=== PATIENT | male | born 1945 | race African-American/Black ===

== ENCOUNTER 2017-08-10 00:05 | Inpatient (IN) | payer MEDICARE, OTHER ==
[2017-08-10] MEDS: IPRATROPIUM (NEB) 0.5 MG/2.5 ML AMP INH (00:40)
[2017-08-10] MEDS: ALBUTEROL 0.5% (NEB) 2.5 MG/0.5 ML AMP INH (00:40)
[2017-08-10] MEDS: METHYLPREDNISOLONE 125 MG INJ IV (00:42)
[2017-08-10 01:26] LABS: WHITE BLOOD COUNT 5.2 10^3/ul (4.8-10.8)
[2017-08-10 01:26] LABS: HEMATOCRIT 34.4 % (42.0-52.0); HEMOGLOBIN 11.4 g/dl (14.0-18.0); MEAN CORPUSCULAR HEMOGLOBIN 30.5 pg (29.0-33.0); MEAN CORPUSCULAR HGB CONC 33.1 g/dl (32.0-37.0); MEAN PLATELET VOLUME 11.4 fl (7.4-10.4); POSITIVE DIFF @See below; RED BLOOD COUNT 3.74 10^6/ul (4.70-6.10); RED CELL DISTRIBUTION WIDTH 19.8 % (11.5-14.5)
[2017-08-10 01:30] LABS: ADD MAN DIFF? YES; PLATELET COUNT 104 10^3/UL (140-415)
[2017-08-10 01:42] LABS: ALANINE AMINOTRANSFERASE 42 IU/L (13-69); ALBUMIN 3.8 g/dl (3.3-4.9); ALBUMIN/GLOBULIN RATIO 1.08; ALKALINE PHOSPHATASE 88 IU/L (42-121); ANION GAP 18 (8-16); ASPARTATE AMINO TRANSFERASE 59 IU/L (15-46); BILIRUBIN,INDIRECT 1.2 mg/dl (0-1.1); BILIRUBIN,TOTAL 1.2 mg/dl (0.2-1.3); BLOOD UREA NITROGEN 17 mg/dl (7-20); CALCIUM 8.7 mg/dl (8.4-10.2); CARBON DIOXIDE 19 mmol/L (21-31); CHLORIDE 108 mmol/L (97-110); CREATININE 0.85 mg/dl (0.61-1.24); GLUCOSE 68 mg/dl (70-220); POTASSIUM 4.1 mmol/L (3.5-5.1); SODIUM 141 mmol/L (135-144); TOTAL PROTEIN 7.3 g/dl (6.1-8.1)
[2017-08-10 01:50] LABS: INR 1.06; PROTIME 13.9 Sec (11.9-14.9); PT RATIO 1.1
[2017-08-10 01:51] LABS: PARTIAL THROMBOPLASTIN TIME 28.7 Sec (25.0-35.0)
[2017-08-10 01:56] LABS: B-TYPE NATRIURETIC PEPTIDE 4400 PG/ML (0-125); TROPONIN-I 0.075 ng/ml (0.00-0.12)
[2017-08-10 02:29] LABS: ANISOCYTOSIS 1+ (0-0); EOSINOPHILS % (M) 3 % (0-7); LYMPHOCYTES #M 1.4 10^3/ul (0.8-2.9); LYMPHOCYTES % (M) 28 % (15-51); MONOCYTE #M 0.2 10^3/ul (0.3-0.9); MONOCYTES % (M) 5 % (0-11); OVALOCYTES 1+ (0-0); PLATELET ESTIMATE NORMAL; POIKILOCYTOSIS 1+ (0-0); POLYCHROMASIA 1+ (0-0); SEGMENTED NEUTROPHILS (M) % 64 % (39-77); SMUDGE%M 4 % (0-0)
[2017-08-10] MEDS ORDERED: DILTIAZEM 25 MG INJ (03:54)
[2017-08-10] MEDS: DILTIAZEM 25 MG INJ IV (04:07)
[2017-08-10] MEDS: SOD CHLORIDE 0.9% 500 ML IV (04:08)
[2017-08-10] MEDS ORDERED: NITROGLYCERIN (SL) 0.4 MG TAB SL (04:30)
[2017-08-10] MEDS ORDERED: NACL 0.9% 3 ML SYG IV (04:30)
[2017-08-10] MEDS: morphine 2 MG INJ IV ×3 (04:53→19:46)
[2017-08-10] MEDS: ONDANSETRON 4 MG INJ IV ×4 (04:53→21:17)
[2017-08-10 06:06] LABS: CREATINE KINASE 98 IU/L (23-200)
[2017-08-10 06:19] LABS: CK INDEX 3.3; TROPONIN-I 0.077 ng/ml (0.00-0.12)
[2017-08-10 06:22] LABS: CK-MB 3.27 ng/ml (0.0-2.4)
[2017-08-10] MEDS: ASPIRIN (EC) 325 MG TAB PO (08:41)
[2017-08-10] MEDS: FAMOTIDINE 20 MG TAB PO ×2 (08:45→21:17)
[2017-08-10] MEDS: HYDROCODONE/APAP (5/325) TAB PO ×2 (08:45→17:05)
[2017-08-10] MEDS ORDERED: ASPIRIN 81 MG TAB PO (09:00)
[2017-08-10] MEDS: ENOXAPARIN 40 MG/0.4 ML SYG SC (09:06)
[2017-08-10] MEDS: LEVALBUTEROL (NEB) 0.63 MG/3 ML AMP HHN (12:29)
[2017-08-10] MEDS: ACETAMINOPHEN 325 MG TAB PO (13:20)
[2017-08-10] MEDS: LORAZEPAM 0.5 MG TAB PO ×2 (13:21→19:46)
[2017-08-10] MEDS: FUROSEMIDE 20 MG INJ IV (15:37)
[2017-08-10 15:45] LABS: CREATINE KINASE 126 IU/L (23-200)
[2017-08-10 15:56] LABS: CK INDEX 3.3; TROPONIN-I 0.058 ng/ml (0.00-0.12)
[2017-08-10 16:06] LABS: CK-MB 4.18 ng/ml (0.0-2.4)
[2017-08-10] MEDS: ATORVASTATIN 40 MG TAB PO (21:17)
[2017-08-10] MEDS: GABAPENTIN 300 MG CAP PO (22:44)
[2017-08-11] MEDS: ASPIRIN (EC) 325 MG TAB PO (09:03)
[2017-08-11] MEDS: FAMOTIDINE 20 MG TAB PO ×2 (09:03→21:39)
[2017-08-11] MEDS: FUROSEMIDE 20 MG INJ IV (09:03)
[2017-08-11] MEDS: GABAPENTIN 300 MG CAP PO ×3 (09:03→21:40)
[2017-08-11] MEDS: ENOXAPARIN 40 MG/0.4 ML SYG SC (09:05)
[2017-08-11 16:53] LABS: ADD MAN DIFF? NO
[2017-08-11 16:55] LABS: WHITE BLOOD COUNT 12.5 10^3/ul (4.8-10.8)
[2017-08-11 16:55] LABS: ABNORMAL IP MESSAGE 1; HEMATOCRIT 33.6 % (42.0-52.0); MEAN CORPUSCULAR HGB CONC 32.7 g/dl (32.0-37.0); MEAN CORPUSCULAR VOLUME 94.6 fl (82.0-101.0); PLATELET COUNT 53 10^3/UL (140-415); POSITIVE DIFF @See below; RED BLOOD COUNT 3.55 10^6/ul (4.70-6.10); RED CELL DISTRIBUTION WIDTH 19.9 % (11.5-14.5)
[2017-08-11 17:12] LABS: ALBUMIN 3.8 g/dl (3.3-4.9); ALBUMIN/GLOBULIN RATIO 1.11; ALKALINE PHOSPHATASE 97 IU/L (42-121); ANION GAP 23 (8-16); BILIRUBIN,INDIRECT 2.4 mg/dl (0-1.1); BILIRUBIN,TOTAL 5.5 mg/dl (0.2-1.3); BLOOD UREA NITROGEN 43 mg/dl (7-20); CALCIUM 8.7 mg/dl (8.4-10.2); CARBON DIOXIDE 15 mmol/L (21-31); CHLORIDE 99 mmol/L (97-110); CREATININE 2.17 mg/dl (0.61-1.24); GLUCOSE 135 mg/dl (70-220); MAGNESIUM 1.6 mg/dl (1.7-2.5); POTASSIUM 5.4 mmol/L (3.5-5.1); SODIUM 132 mmol/L (135-144); TOTAL PROTEIN 7.2 g/dl (6.1-8.1)
[2017-08-11 17:20] LABS: ALANINE AMINOTRANSFERASE 1447 IU/L (13-69)
[2017-08-11 17:34] LABS: ASPARTATE AMINO TRANSFERASE 5141 IU/L (15-46)
[2017-08-11] MEDS: morphine 2 MG INJ IV (17:54)
[2017-08-11 18:09] LABS: ANISOCYTOSIS 1+ (0-0); BAND NEUTROPHILS #M 0.7 10^3/ul (0.0-0.6); BAND NEUTROPHILS % (M) 6 % (0-4); LYMPHOCYTES #M 0.2 10^3/ul (0.8-2.9); LYMPHOCYTES % (M) 2 % (15-51); METAMYELOCYTES #M 0.1 10^3/ul (0.0-0.0); METAMYELOCYTES %M 1 % (0-0); MONOCYTE #M 0.7 10^3/ul (0.3-0.9); MONOCYTES % (M) 6 % (0-11); MYELOCYTES #M 0.1 10^3/ul (0.0-0.0); MYELOCYTES % (M) 1 % (0-0); PLATELET ESTIMATE DECREASED; POIKILOCYTOSIS 1+ (0-0); SEG NEUT #M 10.6 10^3/ul (1.7-7.5); SEGMENTED NEUTROPHILS (M) % 84 % (39-77)
[2017-08-11 19:13] LABS: ADD MAN DIFF? NO
[2017-08-11 19:17] LABS: ABNORMAL IP MESSAGE 1; BASOPHILS % 0.1 % (0.0-2.0); HEMATOCRIT 33.5 % (42.0-52.0); HEMOGLOBIN 10.8 g/dl (14.0-18.0); LYMPHOCYTES # 0.3 10^3/ul (0.8-2.9); LYMPHOCYTES % 2.8 % (15.0-51.0); MEAN CORPUSCULAR HEMOGLOBIN 30.5 pg (29.0-33.0); MEAN CORPUSCULAR HGB CONC 32.2 g/dl (32.0-37.0); MEAN CORPUSCULAR VOLUME 94.6 fl (82.0-101.0); MEAN PLATELET VOLUME 13.8 fl (7.4-10.4); MONOCYTE # 0.4 10^3/ul (0.3-0.9); MONOCYTES % 3.6 % (0.0-11.0); NEUTROPHIL # 10.4 10^3/ul (1.6-7.5); NEUTROPHILS % 92.8 % (39.0-77.0); POSITIVE DIFF @See below; RED BLOOD COUNT 3.54 10^6/ul (4.70-6.10); RED CELL DISTRIBUTION WIDTH 20.1 % (11.5-14.5)
[2017-08-11 19:17] LABS: WHITE BLOOD COUNT 11.2 10^3/ul (4.8-10.8)
[2017-08-11 19:38] LABS: ANION GAP 20 (8-16); BLOOD UREA NITROGEN 46 mg/dl (7-20); CALCIUM 8.3 mg/dl (8.4-10.2); CARBON DIOXIDE 16 mmol/L (21-31); CHLORIDE 99 mmol/L (97-110); CREATININE 2.18 mg/dl (0.61-1.24); GLUCOSE 133 mg/dl (70-220); POTASSIUM 5.2 mmol/L (3.5-5.1); SODIUM 130 mmol/L (135-144)
[2017-08-11 19:47] LABS: PLATELET COUNT 49 10^3/UL (140-415)
[2017-08-11] MEDS: SOD CHLORIDE 0.9% 1,000 ML IV (21:39)
[2017-08-11] MEDS: MAGNESIUM SULFATE 2 GM/50 ML 50 ML IVPB (21:39)
[2017-08-11] MEDS: ATORVASTATIN 40 MG TAB PO (21:40)
[2017-08-12] MEDS: morphine 2 MG INJ IV ×3 (00:26→21:05)
[2017-08-12] MEDS: ONDANSETRON 4 MG INJ IV (06:10)
[2017-08-12] MEDS: LORAZEPAM 0.5 MG TAB PO (06:11)
[2017-08-12] MEDS: ASPIRIN (EC) 325 MG TAB PO (08:43)
[2017-08-12] MEDS: FAMOTIDINE 20 MG TAB PO ×2 (08:43→21:04)
[2017-08-12] MEDS: GABAPENTIN 300 MG CAP PO ×3 (08:43→21:05)
[2017-08-12] MEDS: FUROSEMIDE 20 MG INJ IV (08:48)
[2017-08-12] MEDS: ENOXAPARIN 40 MG/0.4 ML SYG SC (08:49)
[2017-08-12] MEDS: SOD CHLORIDE 0.9% 1,000 ML IV (09:50)
[2017-08-12 16:48] LABS: ANION GAP 19 (8-16); BLOOD UREA NITROGEN 61 mg/dl (7-20); CALCIUM 7.3 mg/dl (8.4-10.2); CARBON DIOXIDE 18 mmol/L (21-31); CHLORIDE 96 mmol/L (97-110); CREATININE 2.43 mg/dl (0.61-1.24); GLUCOSE 110 mg/dl (70-220); POTASSIUM 5.9 mmol/L (3.5-5.1); SODIUM 127 mmol/L (135-144)
[2017-08-12 16:52] LABS: B-TYPE NATRIURETIC PEPTIDE 5340 PG/ML (0-125)
[2017-08-12 16:54] LABS: ADD UMIC YES; UR ASCORBIC ACID NEGATIVE (NEGATIVE); UR BACTERIA FEW /HPF (NONE SEEN); UR BILIRUBIN (Dip) NEGATIVE (NEGATIVE); UR BLOOD (Dip) 2+ mg/dL (NEGATIVE); UR CLARITY SLIGHTLY CLOUDY (CLEAR); UR COLOR AMBER (YELLOW); UR GLUCOSE (Dip) NEGATIVE (NEGATIVE); UR KETONES (Dip) NEGATIVE (NEGATIVE); UR LEUKOCYTE ESTERASE (Dip) NEGATIVE Leu/ul (NEGATIVE); UR MUCUS FEW /HPF (NONE SEEN); UR NITRITE (Dip) NEGATIVE (NEGATIVE); UR RBC 9 /HPF (0-5); UR SPECIFIC GRAVITY (Dip) 1.015 (1.003-1.030); UR TOTAL PROTEIN (Dip) 2+ mg/dl (NEGATIVE); UR UROBILINOGEN (Dip) 2+ mg/dL (NEGATIVE); UR WBC 2 /HPF (0-5)
[2017-08-12] MEDS: FUROSEMIDE 40 MG INJ IV (16:54)
[2017-08-12 17:17] LABS: CREATININE,URINE RANDOM 109.65 mg/dl (20-370)
[2017-08-12 17:17] LABS: SODIUM,URINE RANDOM 20 mmol/L (30-90)
[2017-08-12 18:42] LABS: Allen Test ACCEPTAB; Arterial Base Excess -7.6 mmol/L (-3.0-3); Arterial Blood Gas Oxygen Sat 90.6 mmHG (95.0-98.0); Arterial COHb 0.4 % (0.0-3.0); Arterial Fraction of Oxyhgb 90.1 % (93.0-99.0); Arterial HCO3 16.1 mmol/L (22.0-26.0); Arterial MetHb 0.1 % (0.0-1.5); Arterial Total Hemglobin 12.5 g/dl (12.0-18.0); Arterial pCO2 27.9 mmhg (35-45); MODE ROOM AIR; Site Right Radial
[2017-08-12 19:07] LABS: ALBUMIN 3.5 g/dl (3.3-4.9); ALKALINE PHOSPHATASE 129 IU/L (42-121); BILIRUBIN,INDIRECT 1.5 mg/dl (0-1.1); BILIRUBIN,TOTAL 2.8 mg/dl (0.2-1.3); TOTAL PROTEIN 6.8 g/dl (6.1-8.1)
[2017-08-12] MEDS: NA POLYST SULFON 15 GM/60 ML BTL PO (19:16)
[2017-08-12 19:17] LABS: ALANINE AMINOTRANSFERASE 1198 IU/L (13-69)
[2017-08-12] MEDS: ATORVASTATIN 40 MG TAB PO (21:05)
[2017-08-12 23:07] LABS: ANION GAP 20 (8-16); BLOOD UREA NITROGEN 64 mg/dl (7-20); CALCIUM 7.7 mg/dl (8.4-10.2); CARBON DIOXIDE 17 mmol/L (21-31); CHLORIDE 97 mmol/L (97-110); CREATININE 2.48 mg/dl (0.61-1.24); GLUCOSE 108 mg/dl (70-220); POTASSIUM 5.2 mmol/L (3.5-5.1); SODIUM 129 mmol/L (135-144)
[2017-08-13] MEDS: LORAZEPAM 0.5 MG TAB PO (03:45)
[2017-08-13 05:49] LABS: ABNORMAL IP MESSAGE 1; HEMATOCRIT 33.5 % (42.0-52.0); HEMOGLOBIN 11.1 g/dl (14.0-18.0); MEAN CORPUSCULAR HEMOGLOBIN 31.1 pg (29.0-33.0); MEAN CORPUSCULAR HGB CONC 33.1 g/dl (32.0-37.0); MEAN CORPUSCULAR VOLUME 93.8 fl (82.0-101.0); NUCLEATED RED BLOOD CELLS% 0.3 /100WBC (0.0-0.0); POSITIVE DIFF @See below; RED BLOOD COUNT 3.57 10^6/ul (4.70-6.10); RED CELL DISTRIBUTION WIDTH 19.8 % (11.5-14.5)
[2017-08-13 05:49] LABS: WHITE BLOOD COUNT 7.9 10^3/ul (4.8-10.8)
[2017-08-13 06:13] LABS: ADD MAN DIFF? YES; PLATELET COUNT 37 10^3/UL (140-415)
[2017-08-13 06:14] LABS: PATH REVIEW? YES
[2017-08-13 06:26] LABS: ALBUMIN 3.7 g/dl (3.3-4.9); ALKALINE PHOSPHATASE 138 IU/L (42-121); BILIRUBIN,INDIRECT 1.4 mg/dl (0-1.1); BILIRUBIN,TOTAL 2.7 mg/dl (0.2-1.3); TOTAL PROTEIN 7.1 g/dl (6.1-8.1)
[2017-08-13 06:28] LABS: ANION GAP 22 (8-16); BLOOD UREA NITROGEN 66 mg/dl (7-20); CALCIUM 7.6 mg/dl (8.4-10.2); CARBON DIOXIDE 19 mmol/L (21-31); CHLORIDE 98 mmol/L (97-110); CREATININE 2.24 mg/dl (0.61-1.24); GLUCOSE 127 mg/dl (70-220); POTASSIUM 4.9 mmol/L (3.5-5.1); SODIUM 134 mmol/L (135-144)
[2017-08-13 06:35] LABS: ALANINE AMINOTRANSFERASE 1072 IU/L (13-69)
[2017-08-13 06:50] LABS: MAGNESIUM 2.2 mg/dl (1.7-2.5)
[2017-08-13 06:50] LABS: PHOSPHORUS 3.8 mg/dl (2.5-4.9)
[2017-08-13 07:26] LABS: ASPARTATE AMINO TRANSFERASE 2169 IU/L (15-46)
[2017-08-13] MEDS: FAMOTIDINE 20 MG TAB PO ×2 (08:36→21:19)
[2017-08-13] MEDS: FUROSEMIDE 20 MG INJ IV (08:36)
[2017-08-13] MEDS: ASPIRIN (EC) 325 MG TAB PO (08:36)
[2017-08-13] MEDS: GABAPENTIN 300 MG CAP PO ×3 (08:36→21:19)
[2017-08-13] MEDS: ENOXAPARIN 40 MG/0.4 ML SYG SC (08:43)
[2017-08-13 09:25] LABS: LYMPHOCYTES # 0.2 10^3/ul (0.8-2.9); LYMPHOCYTES % 2.7 % (15.0-51.0); MONOCYTE # 0.6 10^3/ul (0.3-0.9); MONOCYTES % 7.9 % (0.0-11.0); NEUTROPHILS % 88.9 % (39.0-77.0)
[2017-08-13 09:56] LABS: ANISOCYTOSIS 1+ (0-0); BAND NEUTROPHILS #M 0.5 10^3/ul (0.0-0.6); BAND NEUTROPHILS % (M) 7 % (0-4); BURR CELLS 3+ (0-0); GIANT THROMBO% (M) 2 % (0-0); LYMPHOCYTES #M 0.1 10^3/ul (0.8-2.9); LYMPHOCYTES % (M) 2 % (15-51); MONOCYTE #M 0.4 10^3/ul (0.3-0.9); MONOCYTES % (M) 6 % (0-11); PLATELET ESTIMATE SIG DECREASED; POIKILOCYTOSIS 3+ (0-0); POLYCHROMASIA 3+ (0-0); PROMYELOCYTES % (M) 1 % (0-0); SEG NEUT #M 6.7 10^3/ul (1.7-7.5); SEGMENTED NEUTROPHILS (M) % 84 % (39-77)
[2017-08-13] MEDS: LEVALBUTEROL (NEB) 0.63 MG/3 ML AMP HHN (12:10)
[2017-08-13] MEDS: IPRATROPIUM (NEB) 0.5 MG/2.5 ML AMP NEB (12:11)
[2017-08-13] MEDS: ATORVASTATIN 40 MG TAB PO (21:19)
[2017-08-13] MEDS: morphine 2 MG INJ IV (23:07)
[2017-08-14] MEDS: morphine 2 MG INJ IV ×4 (04:18→19:50)
[2017-08-14 06:07] LABS: ADD MAN DIFF? NO
[2017-08-14 06:47] LABS: WHITE BLOOD COUNT 5.3 10^3/ul (4.8-10.8)
[2017-08-14 06:47] LABS: ABNORMAL IP MESSAGE 1; EOSINOPHILS % 0.2 % (0.0-7.0); HEMATOCRIT 28.9 % (42.0-52.0); HEMOGLOBIN 10.3 g/dl (14.0-18.0); LYMPHOCYTES # 0.4 10^3/ul (0.8-2.9); LYMPHOCYTES % 6.8 % (15.0-51.0); MEAN CORPUSCULAR HEMOGLOBIN 31.4 pg (29.0-33.0); MEAN CORPUSCULAR HGB CONC 35.6 g/dl (32.0-37.0); MEAN CORPUSCULAR VOLUME 88.1 fl (82.0-101.0); MONOCYTE # 0.6 10^3/ul (0.3-0.9); MONOCYTES % 11.5 % (0.0-11.0); NEUTROPHIL # 4.3 10^3/ul (1.6-7.5); NEUTROPHILS % 81.1 % (39.0-77.0); NUCLEATED RED BLOOD CELLS% 0.4 /100WBC (0.0-0.0); POSITIVE DIFF @See below; RED BLOOD COUNT 3.28 10^6/ul (4.70-6.10); RED CELL DISTRIBUTION WIDTH 19.3 % (11.5-14.5)
[2017-08-14 07:03] LABS: PLATELET COUNT 45 10^3/UL (140-415)
[2017-08-14 07:49] LABS: ANION GAP 15 (8-16); BLOOD UREA NITROGEN 46 mg/dl (7-20); CALCIUM 7.2 mg/dl (8.4-10.2); CARBON DIOXIDE 23 mmol/L (21-31); CHLORIDE 99 mmol/L (97-110); CREATININE 1.56 mg/dl (0.61-1.24); GLUCOSE 99 mg/dl (70-220); MAGNESIUM 1.8 mg/dl (1.7-2.5); PHOSPHORUS 2.2 mg/dl (2.5-4.9); POTASSIUM 3.6 mmol/L (3.5-5.1); SODIUM 133 mmol/L (135-144)
[2017-08-14] MEDS: FAMOTIDINE 20 MG TAB PO ×2 (09:09→19:53)
[2017-08-14] MEDS: ASPIRIN (EC) 325 MG TAB PO (09:09)
[2017-08-14] MEDS: GABAPENTIN 300 MG CAP PO ×3 (09:09→19:53)
[2017-08-14] MEDS: ENOXAPARIN 40 MG/0.4 ML SYG SC (09:10)
[2017-08-14] MEDS: FUROSEMIDE 20 MG INJ IV (09:10)
[2017-08-14] MEDS: DIGOXIN 0.125 MG TAB PO (14:25)
[2017-08-14] MEDS: IVABRADINE HCL 5 MG TABLET PO (17:46)
[2017-08-14] MEDS: ONDANSETRON 4 MG INJ IV (18:34)
[2017-08-14] MEDS: ATORVASTATIN 40 MG TAB PO (19:53)
[2017-08-14] MEDS: LORAZEPAM 0.5 MG TAB PO (21:12)
[2017-08-15 07:00] LABS: ANION GAP 12 (8-16); BLOOD UREA NITROGEN 30 mg/dl (7-20); CALCIUM 7.2 mg/dl (8.4-10.2); CARBON DIOXIDE 25 mmol/L (21-31); CHLORIDE 100 mmol/L (97-110); CREATININE 0.98 mg/dl (0.61-1.24); GLUCOSE 88 mg/dl (70-220); MAGNESIUM 1.8 mg/dl (1.7-2.5); PHOSPHORUS 2.1 mg/dl (2.5-4.9); POTASSIUM 3.9 mmol/L (3.5-5.1); SODIUM 133 mmol/L (135-144)
[2017-08-15] MEDS: IVABRADINE HCL 5 MG TABLET PO ×2 (08:33→17:59)
[2017-08-15] MEDS: GABAPENTIN 300 MG CAP PO ×3 (08:33→21:17)
[2017-08-15] MEDS: FAMOTIDINE 20 MG TAB PO ×2 (08:33→21:17)
[2017-08-15] MEDS: ASPIRIN (EC) 325 MG TAB PO (08:34)
[2017-08-15] MEDS: FUROSEMIDE 20 MG INJ IV (08:34)
[2017-08-15] MEDS: ENOXAPARIN 40 MG/0.4 ML SYG SC (08:35)
[2017-08-15] MEDS: morphine 2 MG INJ IV ×3 (08:45→21:18)
[2017-08-15] MEDS: LOSARTAN 25 MG TAB PO (12:30)
[2017-08-15] MEDS: DIGOXIN 0.125 MG TAB PO (12:33)
[2017-08-15] MEDS: LACTULOSE 30ML CUP PO (16:55)
[2017-08-15] MEDS: ATORVASTATIN 40 MG TAB PO (21:17)
[2017-08-15] MEDS: DOCUSATE SODIUM 100 MG CAP PO (21:17)
[2017-08-15] MEDS: LORAZEPAM 0.5 MG TAB PO (22:43)
[2017-08-16] MEDS: morphine 2 MG INJ IV ×2 (02:36→06:32)
[2017-08-16 06:29] LABS: ALANINE AMINOTRANSFERASE 635 IU/L (13-69); ALBUMIN/GLOBULIN RATIO 1.03; ALKALINE PHOSPHATASE 270 IU/L (42-121); ANION GAP 11 (8-16); BILIRUBIN,INDIRECT 1.3 mg/dl (0-1.1); BILIRUBIN,TOTAL 3.7 mg/dl (0.2-1.3); BLOOD UREA NITROGEN 20 mg/dl (7-20); CALCIUM 7.4 mg/dl (8.4-10.2); CARBON DIOXIDE 25 mmol/L (21-31); CHLORIDE 100 mmol/L (97-110); CREATININE 0.92 mg/dl (0.61-1.24); GLUCOSE 116 mg/dl (70-220); MAGNESIUM 1.7 mg/dl (1.7-2.5); POTASSIUM 3.2 mmol/L (3.5-5.1); SODIUM 133 mmol/L (135-144); TOTAL PROTEIN 5.9 g/dl (6.1-8.1)
[2017-08-16 06:45] LABS: ASPARTATE AMINO TRANSFERASE 1211 IU/L (15-46)
[2017-08-16] MEDS: IVABRADINE HCL 5 MG TABLET PO ×2 (08:00→18:03)
[2017-08-16] MEDS: POTASSIUM CHLORIDE (SR) 20 MEQ TAB PO (09:14)
[2017-08-16] MEDS: ENOXAPARIN 40 MG/0.4 ML SYG SC (09:15)
[2017-08-16] MEDS: DOCUSATE SODIUM 100 MG CAP PO ×2 (09:15→20:42)
[2017-08-16] MEDS: FAMOTIDINE 20 MG TAB PO ×2 (09:15→20:42)
[2017-08-16] MEDS: LOSARTAN 25 MG TAB PO (09:16)
[2017-08-16] MEDS: GABAPENTIN 300 MG CAP PO ×3 (09:16→20:42)
[2017-08-16] MEDS: FUROSEMIDE 20 MG INJ IV ×2 (09:17→18:03)
[2017-08-16] MEDS: ASPIRIN (EC) 325 MG TAB PO (09:19)
[2017-08-16] MEDS: DIGOXIN 0.125 MG TAB PO (13:13)
[2017-08-16] MEDS: SPIRONOLACTONE 25 MG TAB PO (15:47)
[2017-08-16] MEDS: ACETAMINOPHEN 325 MG TAB PO (20:47)
[2017-08-17] MEDS: morphine 2 MG INJ IV ×4 (00:47→23:48)
[2017-08-17] MEDS: FUROSEMIDE 20 MG INJ IV ×2 (05:53→17:52)
[2017-08-17] MEDS: LOSARTAN 25 MG TAB PO (09:00)
[2017-08-17] MEDS: ENOXAPARIN 40 MG/0.4 ML SYG SC ×2 (09:00→09:11)
[2017-08-17] MEDS: ASPIRIN (EC) 325 MG TAB PO (09:07)
[2017-08-17] MEDS: DOCUSATE SODIUM 100 MG CAP PO ×2 (09:07→20:22)
[2017-08-17] MEDS: GABAPENTIN 300 MG CAP PO ×3 (09:07→20:22)
[2017-08-17] MEDS: IVABRADINE HCL 5 MG TABLET PO ×2 (09:08→17:57)
[2017-08-17] MEDS: SPIRONOLACTONE 25 MG TAB PO (09:08)
[2017-08-17] MEDS: FAMOTIDINE 20 MG TAB PO ×2 (09:08→21:26)
[2017-08-17] MEDS: ACETAMINOPHEN 325 MG TAB PO (09:09)
[2017-08-17 10:50] LABS: ADD MAN DIFF? NO
[2017-08-17 11:39] LABS: WHITE BLOOD COUNT 6.1 10^3/ul (4.8-10.8)
[2017-08-17 11:39] LABS: ABNORMAL IP MESSAGE 1; BASOPHILS % 0.2 % (0.0-2.0); EOSINOPHILS # 0.1 10^3/ul (0.0-0.5); EOSINOPHILS % 1.3 % (0.0-7.0); HEMATOCRIT 37.4 % (42.0-52.0); HEMOGLOBIN 13.3 g/dl (14.0-18.0); LYMPHOCYTES # 0.4 10^3/ul (0.8-2.9); LYMPHOCYTES % 6.2 % (15.0-51.0); MEAN CORPUSCULAR HEMOGLOBIN 30.6 pg (29.0-33.0); MEAN CORPUSCULAR HGB CONC 35.6 g/dl (32.0-37.0); MONOCYTE # 1.2 10^3/ul (0.3-0.9); MONOCYTES % 19.7 % (0.0-11.0); NEUTROPHIL # 4.4 10^3/ul (1.6-7.5); NEUTROPHILS % 72.1 % (39.0-77.0); PLATELET COUNT 84 10^3/UL (140-415); POSITIVE DIFF @See below; RED BLOOD COUNT 4.35 10^6/ul (4.70-6.10); RED CELL DISTRIBUTION WIDTH 20.4 % (11.5-14.5)
[2017-08-17 11:55] LABS: PHOSPHORUS 2.6 mg/dl (2.5-4.9)
[2017-08-17 11:55] LABS: MAGNESIUM 1.4 mg/dl (1.7-2.5)
[2017-08-17 12:07] LABS: ALANINE AMINOTRANSFERASE 612 IU/L (13-69); ALBUMIN 2.6 g/dl (3.3-4.9); ALBUMIN/GLOBULIN RATIO 0.81; ALKALINE PHOSPHATASE 201 IU/L (42-121); ANION GAP 12 (8-16); BILIRUBIN,INDIRECT 1.6 mg/dl (0-1.1); BILIRUBIN,TOTAL 5.9 mg/dl (0.2-1.3); BLOOD UREA NITROGEN 17 mg/dl (7-20); CALCIUM 7.6 mg/dl (8.4-10.2); CARBON DIOXIDE 23 mmol/L (21-31); CHLORIDE 99 mmol/L (97-110); GLUCOSE 112 mg/dl (70-220); POTASSIUM 3.2 mmol/L (3.5-5.1); SODIUM 131 mmol/L (135-144); TOTAL PROTEIN 5.8 g/dl (6.1-8.1)
[2017-08-17 12:10] LABS: B-TYPE NATRIURETIC PEPTIDE 1450 PG/ML (0-125)
[2017-08-17 12:28] LABS: ASPARTATE AMINO TRANSFERASE 1137 IU/L (15-46)
[2017-08-17] MEDS: CALCIUM CARBONATE 500 MG CHEW TAB PO ×2 (12:57→22:29)
[2017-08-17] MEDS: POTASSIUM CHLORIDE (SR) 20 MEQ TAB PO (12:57)
[2017-08-17] MEDS: MAGNESIUM OXIDE 400 MG TAB PO (12:57)
[2017-08-17] MEDS: DIGOXIN 0.125 MG TAB PO (12:58)
[2017-08-17 16:01] LABS: CREATININE, RANDOM URINE 121 mg/dL (20-370); MICROALBUMIN 38.4 mg/dL; MICROALBUMIN/CREATININE RATIO 317 (<30)
[2017-08-17] MEDS: PANTOPRAZOLE (EC) 40 MG TAB PO (20:20)
[2017-08-17] MEDS: LACTOBACILLUS RHAMNOSUS CAP PO (20:22)
[2017-08-17] MEDS: MAGNESIUM SULFATE 3 GM in DEXTROSE 5% 100 ML IVPB (22:48)
[2017-08-18] MEDS: FUROSEMIDE 20 MG INJ IV ×2 (06:23→17:40)
[2017-08-18] MEDS: morphine 2 MG INJ IV (06:24)
[2017-08-18] MEDS: PANTOPRAZOLE (EC) 40 MG TAB PO (06:26)
[2017-08-18] MEDS: LACTOBACILLUS RHAMNOSUS CAP PO ×2 (09:12→22:07)
[2017-08-18] MEDS: GABAPENTIN 300 MG CAP PO ×3 (09:12→22:08)
[2017-08-18] MEDS: DOCUSATE SODIUM 100 MG CAP PO ×2 (09:12→22:08)
[2017-08-18] MEDS: ASPIRIN (EC) 325 MG TAB PO (09:12)
[2017-08-18] MEDS: IVABRADINE HCL 5 MG TABLET PO ×2 (09:12→17:39)
[2017-08-18] MEDS: FAMOTIDINE 20 MG TAB PO ×2 (09:13→22:08)
[2017-08-18] MEDS: LOSARTAN 25 MG TAB PO (09:14)
[2017-08-18] MEDS: SPIRONOLACTONE 25 MG TAB PO (09:23)
[2017-08-18] MEDS: ENOXAPARIN 40 MG/0.4 ML SYG SC (09:24)
[2017-08-18] MEDS: metroNIDAZOLE 500 MG/NS (PMX) 100 ML IVPB ×2 (13:08→17:39)
[2017-08-18] MEDS: DIGOXIN 0.125 MG TAB PO (13:21)
[2017-08-18] MEDS: SOD CHLORIDE 0.9% 500 ML IV ×2 (18:22→22:14)
[2017-08-18] MEDS ORDERED: SOD CHLORIDE 0.9% 500 ML IV (18:30)
[2017-08-18] MEDS: KETOROLAC 30 MG INJ IV (22:01)
[2017-08-19] MEDS: metroNIDAZOLE 500 MG/NS (PMX) 100 ML IVPB ×4 (00:37→18:12)
[2017-08-19] MEDS: FUROSEMIDE 20 MG INJ IV (06:00)
[2017-08-19] MEDS: KETOROLAC 15 MG INJ IV (06:17)
[2017-08-19 06:23] LABS: ADD MAN DIFF? NO
[2017-08-19 06:27] LABS: ABNORMAL IP MESSAGE 1; BASOPHILS % 0.2 % (0.0-2.0); EOSINOPHILS # 0.1 10^3/ul (0.0-0.5); EOSINOPHILS % 1.9 % (0.0-7.0); HEMATOCRIT 34.3 % (42.0-52.0); HEMOGLOBIN 12.1 g/dl (14.0-18.0); LYMPHOCYTES # 0.8 10^3/ul (0.8-2.9); LYMPHOCYTES % 12.8 % (15.0-51.0); MEAN CORPUSCULAR HEMOGLOBIN 30.4 pg (29.0-33.0); MEAN CORPUSCULAR HGB CONC 35.3 g/dl (32.0-37.0); MEAN CORPUSCULAR VOLUME 86.2 fl (82.0-101.0); MEAN PLATELET VOLUME 12.9 fl (7.4-10.4); MONOCYTE # 1.2 10^3/ul (0.3-0.9); MONOCYTES % 18.6 % (0.0-11.0); NEUTROPHIL # 4.2 10^3/ul (1.6-7.5); NEUTROPHILS % 66.3 % (39.0-77.0); PLATELET COUNT 92 10^3/UL (140-415); POSITIVE DIFF @See below; RED BLOOD COUNT 3.98 10^6/ul (4.70-6.10); RED CELL DISTRIBUTION WIDTH 20.7 % (11.5-14.5)
[2017-08-19 06:27] LABS: WHITE BLOOD COUNT 6.3 10^3/ul (4.8-10.8)
[2017-08-19] MEDS: PANTOPRAZOLE (EC) 40 MG TAB PO (06:48)
[2017-08-19 06:55] LABS: ALANINE AMINOTRANSFERASE 360 IU/L (13-69); ALBUMIN 2.2 g/dl (3.3-4.9); ALBUMIN/GLOBULIN RATIO 0.78; ALKALINE PHOSPHATASE 148 IU/L (42-121); ANION GAP 13 (8-16); ASPARTATE AMINO TRANSFERASE 308 IU/L (15-46); BILIRUBIN,INDIRECT 1.1 mg/dl (0-1.1); BILIRUBIN,TOTAL 2.5 mg/dl (0.2-1.3); BLOOD UREA NITROGEN 21 mg/dl (7-20); CALCIUM 7.9 mg/dl (8.4-10.2); CARBON DIOXIDE 21 mmol/L (21-31); CHLORIDE 105 mmol/L (97-110); CREATININE 1.23 mg/dl (0.61-1.24); GLUCOSE 135 mg/dl (70-220); LIPASE 612 U/L (23-300); POTASSIUM 3.5 mmol/L (3.5-5.1); SODIUM 135 mmol/L (135-144)
[2017-08-19 07:12] LABS: DIGOXIN 0.6 ng/ml (1.0-2.0)
[2017-08-19 07:12] LABS: LACTIC ACID 1.6 mmol/L (0.5-2.0)
[2017-08-19 07:18] LABS: TROPONIN-I 0.055 ng/ml (0.00-0.12)
[2017-08-19 07:27] LABS: MAGNESIUM 1.7 mg/dl (1.7-2.5)
[2017-08-19 07:27] LABS: PHOSPHORUS 2.8 mg/dl (2.5-4.9)
[2017-08-19] MEDS: SOD CHLORIDE 0.9% 1,000 ML IV ×2 (07:39→22:22)
[2017-08-19] MEDS: SOD CHLORIDE 0.9% 500 ML IV (07:39)
[2017-08-19] MEDS: LOSARTAN 25 MG TAB PO (09:00)
[2017-08-19] MEDS: LACTOBACILLUS RHAMNOSUS CAP PO ×2 (09:00→21:00)
[2017-08-19] MEDS: CIPROFLOXACIN 400MG/D5W 200 ML IVPB ×2 (10:55→22:12)
[2017-08-19] MEDS: DOCUSATE SODIUM 100 MG CAP PO ×2 (10:56→21:00)
[2017-08-19] MEDS: GABAPENTIN 300 MG CAP PO ×3 (10:56→22:12)
[2017-08-19] MEDS: ASPIRIN (EC) 325 MG TAB PO (10:56)
[2017-08-19] MEDS: FAMOTIDINE 20 MG TAB PO ×2 (10:56→22:12)
[2017-08-19] MEDS: SPIRONOLACTONE 25 MG TAB PO (10:56)
[2017-08-19] MEDS: ENOXAPARIN 40 MG/0.4 ML SYG SC (11:02)
[2017-08-19] MEDS: DIGOXIN 0.125 MG TAB PO (12:56)
[2017-08-19] MEDS: IVABRADINE HCL 5 MG TABLET PO ×2 (12:56→18:12)
[2017-08-19 13:47] LABS: TROPONIN-I 0.031 ng/ml (0.00-0.12)
[2017-08-19] MEDS: morphine 2 MG INJ IV (22:19)
[2017-08-20] MEDS: metroNIDAZOLE 500 MG/NS (PMX) 100 ML IVPB ×4 (00:50→17:06)
[2017-08-20] MEDS: PANTOPRAZOLE (EC) 40 MG TAB PO (05:35)
[2017-08-20] MEDS: ASPIRIN (EC) 325 MG TAB PO (09:11)
[2017-08-20] MEDS: GABAPENTIN 300 MG CAP PO ×3 (09:11→21:14)
[2017-08-20] MEDS: LACTOBACILLUS RHAMNOSUS CAP PO ×2 (09:11→21:14)
[2017-08-20] MEDS: DOCUSATE SODIUM 100 MG CAP PO ×2 (09:11→21:14)
[2017-08-20] MEDS: LOSARTAN 25 MG TAB PO (09:12)
[2017-08-20] MEDS: FAMOTIDINE 20 MG TAB PO ×2 (09:12→21:14)
[2017-08-20] MEDS: SPIRONOLACTONE 25 MG TAB PO (09:12)
[2017-08-20] MEDS: IVABRADINE HCL 5 MG TABLET PO ×2 (09:13→17:09)
[2017-08-20] MEDS: ENOXAPARIN 40 MG/0.4 ML SYG SC (09:15)
[2017-08-20] MEDS: morphine 2 MG INJ IV (09:22)
[2017-08-20] MEDS: CIPROFLOXACIN 400MG/D5W 200 ML IVPB ×2 (10:36→21:14)
[2017-08-20] MEDS: DIGOXIN 0.125 MG TAB PO (13:37)
[2017-08-20 14:49] LABS: ADD MAN DIFF? NO
[2017-08-20 14:51] LABS: ABNORMAL IP MESSAGE 1; BASOPHILS % 0.2 % (0.0-2.0); EOSINOPHILS # 0.1 10^3/ul (0.0-0.5); EOSINOPHILS % 1.1 % (0.0-7.0); HEMATOCRIT 34.5 % (42.0-52.0); HEMOGLOBIN 11.7 g/dl (14.0-18.0); LYMPHOCYTES # 0.8 10^3/ul (0.8-2.9); LYMPHOCYTES % 12.9 % (15.0-51.0); MEAN CORPUSCULAR HEMOGLOBIN 30.4 pg (29.0-33.0); MEAN CORPUSCULAR HGB CONC 33.9 g/dl (32.0-37.0); MEAN CORPUSCULAR VOLUME 89.6 fl (82.0-101.0); MEAN PLATELET VOLUME 11.9 fl (7.4-10.4); MONOCYTE # 1.5 10^3/ul (0.3-0.9); MONOCYTES % 24.1 % (0.0-11.0); NEUTROPHIL # 3.9 10^3/ul (1.6-7.5); NEUTROPHILS % 61.5 % (39.0-77.0); PLATELET COUNT 90 10^3/UL (140-415); POSITIVE DIFF @See below; RED BLOOD COUNT 3.85 10^6/ul (4.70-6.10); RED CELL DISTRIBUTION WIDTH 21.5 % (11.5-14.5)
[2017-08-20 14:51] LABS: WHITE BLOOD COUNT 6.4 10^3/ul (4.8-10.8)
[2017-08-20 15:09] LABS: ANION GAP 13 (8-16); BLOOD UREA NITROGEN 12 mg/dl (7-20); CALCIUM 7.8 mg/dl (8.4-10.2); CARBON DIOXIDE 18 mmol/L (21-31); CHLORIDE 106 mmol/L (97-110); CREATININE 0.98 mg/dl (0.61-1.24); GLUCOSE 87 mg/dl (70-220); MAGNESIUM 1.5 mg/dl (1.7-2.5); PHOSPHORUS 2.9 mg/dl (2.5-4.9); POTASSIUM 3.7 mmol/L (3.5-5.1); SODIUM 133 mmol/L (135-144)
[2017-08-20] MEDS: MAGNESIUM SULFATE 3 GM in DEXTROSE 5% 100 ML IVPB (17:51)
[2017-08-21] MEDS: metroNIDAZOLE 500 MG/NS (PMX) 100 ML IVPB ×4 (00:10→18:58)
[2017-08-21] MEDS: morphine 2 MG INJ IV (00:11)
[2017-08-21] MEDS: PANTOPRAZOLE (EC) 40 MG TAB PO (05:13)
[2017-08-21] MEDS: SOD CHLORIDE 0.9% 1,000 ML IV (06:09)
[2017-08-21 08:20] LABS: ADD MAN DIFF? NO
[2017-08-21 08:28] LABS: WHITE BLOOD COUNT 6.6 10^3/ul (4.8-10.8)
[2017-08-21 08:28] LABS: ABNORMAL IP MESSAGE 1; BASOPHILS % 0.5 % (0.0-2.0); EOSINOPHILS % 0.6 % (0.0-7.0); HEMATOCRIT 34.7 % (42.0-52.0); HEMOGLOBIN 12.3 g/dl (14.0-18.0); LYMPHOCYTES % 15.5 % (15.0-51.0); MEAN CORPUSCULAR HEMOGLOBIN 30.7 pg (29.0-33.0); MEAN CORPUSCULAR HGB CONC 35.4 g/dl (32.0-37.0); MEAN CORPUSCULAR VOLUME 86.5 fl (82.0-101.0); MEAN PLATELET VOLUME 13.1 fl (7.4-10.4); MONOCYTE # 1.3 10^3/ul (0.3-0.9); MONOCYTES % 19.7 % (0.0-11.0); NEUTROPHIL # 4.2 10^3/ul (1.6-7.5); NEUTROPHILS % 63.4 % (39.0-77.0); PLATELET COUNT 89 10^3/UL (140-415); POSITIVE DIFF @See below; RED BLOOD COUNT 4.01 10^6/ul (4.70-6.10); RED CELL DISTRIBUTION WIDTH 21.6 % (11.5-14.5)
[2017-08-21] MEDS: FAMOTIDINE 20 MG TAB PO ×2 (08:46→20:12)
[2017-08-21] MEDS: LACTOBACILLUS RHAMNOSUS CAP PO ×2 (08:46→20:10)
[2017-08-21] MEDS: GABAPENTIN 300 MG CAP PO ×3 (08:46→20:10)
[2017-08-21] MEDS: CIPROFLOXACIN 400MG/D5W 200 ML IVPB ×2 (08:46→20:09)
[2017-08-21] MEDS: IVABRADINE HCL 5 MG TABLET PO ×2 (08:46→18:57)
[2017-08-21] MEDS: DOCUSATE SODIUM 100 MG CAP PO ×2 (08:46→20:10)
[2017-08-21] MEDS: ASPIRIN (EC) 325 MG TAB PO (08:46)
[2017-08-21] MEDS: SPIRONOLACTONE 25 MG TAB PO (08:46)
[2017-08-21] MEDS: LOSARTAN 25 MG TAB PO (08:47)
[2017-08-21] MEDS: ENOXAPARIN 40 MG/0.4 ML SYG SC (08:51)
[2017-08-21 09:05] LABS: ANION GAP 14 (8-16); BLOOD UREA NITROGEN 12 mg/dl (7-20); CALCIUM 8.3 mg/dl (8.4-10.2); CARBON DIOXIDE 22 mmol/L (21-31); CHLORIDE 104 mmol/L (97-110); CREATININE 0.93 mg/dl (0.61-1.24); GLUCOSE 75 mg/dl (70-220); MAGNESIUM 1.7 mg/dl (1.7-2.5); PHOSPHORUS 3.7 mg/dl (2.5-4.9); POTASSIUM 4.8 mmol/L (3.5-5.1); SODIUM 135 mmol/L (135-144)
[2017-08-21] MEDS: DIGOXIN 0.125 MG TAB PO (12:41)
[2017-08-21] MEDS: HYDROCODONE/APAP (5/325) TAB PO (22:34)
[2017-08-22] MEDS: metroNIDAZOLE 500 MG/NS (PMX) 100 ML IVPB ×4 (00:56→17:28)
[2017-08-22] MEDS: PANTOPRAZOLE (EC) 40 MG TAB PO (05:04)
[2017-08-22] MEDS: IVABRADINE HCL 5 MG TABLET PO ×2 (08:51→17:27)
[2017-08-22] MEDS: LACTOBACILLUS RHAMNOSUS CAP PO ×2 (08:52→20:29)
[2017-08-22] MEDS: GABAPENTIN 300 MG CAP PO ×3 (08:52→20:29)
[2017-08-22] MEDS: ASPIRIN (EC) 325 MG TAB PO (08:52)
[2017-08-22] MEDS: FAMOTIDINE 20 MG TAB PO ×2 (08:53→20:29)
[2017-08-22] MEDS: DOCUSATE SODIUM 100 MG CAP PO ×2 (08:53→20:29)
[2017-08-22] MEDS: HYDROCODONE/APAP (5/325) TAB PO (09:00)
[2017-08-22] MEDS: LOSARTAN 25 MG TAB PO (09:00)
[2017-08-22] MEDS: ENOXAPARIN 40 MG/0.4 ML SYG SC (09:00)
[2017-08-22] MEDS: SPIRONOLACTONE 25 MG TAB PO (09:00)
[2017-08-22] MEDS: CIPROFLOXACIN 400MG/D5W 200 ML IVPB ×2 (09:01→21:00)
[2017-08-22] MEDS: SUCRALFATE 1 GM TAB PO ×4 (13:00→20:28)
[2017-08-22] MEDS: DIGOXIN 0.125 MG TAB PO (13:16)
[2017-08-23] MEDS: metroNIDAZOLE 500 MG/NS (PMX) 100 ML IVPB ×4 (05:18→20:52)
[2017-08-23] MEDS: PANTOPRAZOLE (EC) 40 MG TAB PO (05:19)
[2017-08-23] MEDS: FAMOTIDINE 20 MG TAB PO ×2 (08:47→20:53)
[2017-08-23] MEDS: GABAPENTIN 300 MG CAP PO ×3 (08:47→20:53)
[2017-08-23] MEDS: IVABRADINE HCL 5 MG TABLET PO ×2 (08:48→17:28)
[2017-08-23] MEDS: SUCRALFATE 1 GM TAB PO ×4 (08:48→20:53)
[2017-08-23] MEDS: ASPIRIN (EC) 325 MG TAB PO (08:49)
[2017-08-23] MEDS: DOCUSATE SODIUM 100 MG CAP PO ×2 (08:50→20:53)
[2017-08-23 08:57] LABS: ADD MAN DIFF? NO
[2017-08-23] MEDS: LACTOBACILLUS RHAMNOSUS CAP PO ×2 (08:58→20:53)
[2017-08-23] MEDS: CIPROFLOXACIN 400MG/D5W 200 ML IVPB ×2 (09:00→20:52)
[2017-08-23] MEDS: ENOXAPARIN 40 MG/0.4 ML SYG SC (09:00)
[2017-08-23 09:12] LABS: WHITE BLOOD COUNT 5.7 10^3/ul (4.8-10.8)
[2017-08-23 09:12] LABS: BASOPHILS % 0.4 % (0.0-2.0); EOSINOPHILS % 0.5 % (0.0-7.0); HEMATOCRIT 33.8 % (42.0-52.0); HEMOGLOBIN 11.5 g/dl (14.0-18.0); LYMPHOCYTES # 1.2 10^3/ul (0.8-2.9); LYMPHOCYTES % 21.2 % (15.0-51.0); MEAN CORPUSCULAR HEMOGLOBIN 29.9 pg (29.0-33.0); MEAN PLATELET VOLUME 11.3 fl (7.4-10.4); MONOCYTE # 1.2 10^3/ul (0.3-0.9); NEUTROPHIL # 3.2 10^3/ul (1.6-7.5); NEUTROPHILS % 56.7 % (39.0-77.0); PLATELET COUNT 150 10^3/UL (140-415); RED BLOOD COUNT 3.84 10^6/ul (4.70-6.10)
[2017-08-23 09:40] LABS: ALANINE AMINOTRANSFERASE 204 IU/L (13-69); ALBUMIN 2.8 g/dl (3.3-4.9); ALBUMIN/GLOBULIN RATIO 0.96; ALKALINE PHOSPHATASE 109 IU/L (42-121); ANION GAP 13 (8-16); ASPARTATE AMINO TRANSFERASE 75 IU/L (15-46); BILIRUBIN,INDIRECT 0.6 mg/dl (0-1.1); BILIRUBIN,TOTAL 0.6 mg/dl (0.2-1.3); BLOOD UREA NITROGEN 8 mg/dl (7-20); CALCIUM 8.3 mg/dl (8.4-10.2); CARBON DIOXIDE 23 mmol/L (21-31); CHLORIDE 106 mmol/L (97-110); CREATININE 0.88 mg/dl (0.61-1.24); GLUCOSE 79 mg/dl (70-220); MAGNESIUM 1.3 mg/dl (1.7-2.5); POTASSIUM 4.1 mmol/L (3.5-5.1); SODIUM 138 mmol/L (135-144); TOTAL PROTEIN 5.7 g/dl (6.1-8.1)
[2017-08-23] MEDS: MAGNESIUM SULFATE 4 GM/100 ML 100 ML IVPB (11:30)
[2017-08-23] MEDS: MAGNESIUM OXIDE 400 MG TAB PO (13:30)
[2017-08-23] MEDS: DIGOXIN 0.125 MG TAB PO (13:30)
[2017-08-23] MEDS: morphine 2 MG INJ IV (20:56)
[2017-08-23] MEDS: HYDROCODONE/APAP (5/325) TAB PO (23:40)
[2017-08-24] MEDS: metroNIDAZOLE 500 MG/NS (PMX) 100 ML IVPB ×3 (00:18→12:38)
[2017-08-24] MEDS: morphine 2 MG INJ IV ×3 (05:30→20:33)
[2017-08-24] MEDS: PANTOPRAZOLE (EC) 40 MG TAB PO (06:58)
[2017-08-24] MEDS: ASPIRIN (EC) 325 MG TAB PO (08:18)
[2017-08-24] MEDS: FAMOTIDINE 20 MG TAB PO ×2 (08:18→20:30)
[2017-08-24] MEDS: DOCUSATE SODIUM 100 MG CAP PO ×2 (08:18→20:30)
[2017-08-24] MEDS: SUCRALFATE 1 GM TAB PO ×4 (08:18→20:30)
[2017-08-24] MEDS: LACTOBACILLUS RHAMNOSUS CAP PO ×2 (08:18→20:30)
[2017-08-24] MEDS: IVABRADINE HCL 5 MG TABLET PO ×2 (08:18→17:28)
[2017-08-24] MEDS: GABAPENTIN 300 MG CAP PO ×3 (08:19→20:30)
[2017-08-24] MEDS: ENOXAPARIN 40 MG/0.4 ML SYG SC (08:22)
[2017-08-24] MEDS: CIPROFLOXACIN 400MG/D5W 200 ML IVPB (08:23)
[2017-08-24 10:52] LABS: ADD MAN DIFF? NO
[2017-08-24 10:57] LABS: WHITE BLOOD COUNT 7.4 10^3/ul (4.8-10.8)
[2017-08-24 10:57] LABS: BASOPHILS % 0.4 % (0.0-2.0); EOSINOPHILS % 0.5 % (0.0-7.0); HEMATOCRIT 31.6 % (42.0-52.0); HEMOGLOBIN 10.6 g/dl (14.0-18.0); LYMPHOCYTES # 1.3 10^3/ul (0.8-2.9); LYMPHOCYTES % 17.8 % (15.0-51.0); MEAN CORPUSCULAR HEMOGLOBIN 30.6 pg (29.0-33.0); MEAN CORPUSCULAR HGB CONC 33.5 g/dl (32.0-37.0); MEAN CORPUSCULAR VOLUME 91.3 fl (82.0-101.0); MEAN PLATELET VOLUME 11.8 fl (7.4-10.4); MONOCYTE # 1.3 10^3/ul (0.3-0.9); MONOCYTES % 17.4 % (0.0-11.0); NEUTROPHIL # 4.7 10^3/ul (1.6-7.5); NEUTROPHILS % 63.5 % (39.0-77.0); PLATELET COUNT 161 10^3/UL (140-415); RED BLOOD COUNT 3.46 10^6/ul (4.70-6.10); RED CELL DISTRIBUTION WIDTH 21.2 % (11.5-14.5)
[2017-08-24 11:30] LABS: ALANINE AMINOTRANSFERASE 173 IU/L (13-69); ALBUMIN 2.9 g/dl (3.3-4.9); ALBUMIN/GLOBULIN RATIO 0.93; ALKALINE PHOSPHATASE 87 IU/L (42-121); ANION GAP 15 (8-16); ASPARTATE AMINO TRANSFERASE 67 IU/L (15-46); BILIRUBIN,INDIRECT 0.5 mg/dl (0-1.1); BILIRUBIN,TOTAL 0.5 mg/dl (0.2-1.3); BLOOD UREA NITROGEN 12 mg/dl (7-20); CARBON DIOXIDE 26 mmol/L (21-31); CHLORIDE 102 mmol/L (97-110); CREATININE 0.86 mg/dl (0.61-1.24); GLUCOSE 156 mg/dl (70-220); MAGNESIUM 1.2 mg/dl (1.7-2.5); SODIUM 138 mmol/L (135-144)
[2017-08-24] MEDS: DIGOXIN 0.125 MG TAB PO (12:57)
[2017-08-24] MEDS: MAGNESIUM SULFATE 3 GM in DEXTROSE 5% 100 ML IVPB (14:00)
[2017-08-24] MEDS ORDERED: metroNIDAZOLE 500 MG TAB PO (17:00)
[2017-08-24] MEDS: MAGNESIUM OXIDE 400 MG TAB PO (17:28)
[2017-08-24] MEDS ORDERED: CIPROFLOXACIN 500 MG TAB PO (18:00)
[2017-08-25] MEDS: NITROGLYCERIN (SL) 0.4 MG TAB SL (01:04)
[2017-08-25] MEDS: PANTOPRAZOLE (EC) 40 MG TAB PO (05:31)
[2017-08-25] MEDS: morphine 2 MG INJ IV (05:32)
[2017-08-25 08:38] LABS: ADD MAN DIFF? NO
[2017-08-25] MEDS: LACTOBACILLUS RHAMNOSUS CAP PO (08:41)
[2017-08-25] MEDS: GABAPENTIN 300 MG CAP PO ×2 (08:41→12:46)
[2017-08-25] MEDS: IVABRADINE HCL 5 MG TABLET PO (08:41)
[2017-08-25] MEDS: ASPIRIN (EC) 325 MG TAB PO (08:41)
[2017-08-25] MEDS: FAMOTIDINE 20 MG TAB PO (08:41)
[2017-08-25] MEDS: SUCRALFATE 1 GM TAB PO ×2 (08:41→12:46)
[2017-08-25] MEDS: DOCUSATE SODIUM 100 MG CAP PO (08:41)
[2017-08-25 08:42] LABS: BASOPHILS % 0.5 % (0.0-2.0); EOSINOPHILS # 0.1 10^3/ul (0.0-0.5); EOSINOPHILS % 0.9 % (0.0-7.0); HEMATOCRIT 34.5 % (42.0-52.0); HEMOGLOBIN 11.4 g/dl (14.0-18.0); LYMPHOCYTES # 1.7 10^3/ul (0.8-2.9); LYMPHOCYTES % 25.8 % (15.0-51.0); MEAN CORPUSCULAR HEMOGLOBIN 29.8 pg (29.0-33.0); MEAN CORPUSCULAR VOLUME 90.1 fl (82.0-101.0); MEAN PLATELET VOLUME 11.4 fl (7.4-10.4); MONOCYTE # 1.1 10^3/ul (0.3-0.9); MONOCYTES % 17.4 % (0.0-11.0); NEUTROPHIL # 3.6 10^3/ul (1.6-7.5); NEUTROPHILS % 55.2 % (39.0-77.0); PLATELET COUNT 196 10^3/UL (140-415); RED BLOOD COUNT 3.83 10^6/ul (4.70-6.10); RED CELL DISTRIBUTION WIDTH 21.1 % (11.5-14.5)
[2017-08-25 08:42] LABS: WHITE BLOOD COUNT 6.5 10^3/ul (4.8-10.8)
[2017-08-25] MEDS: ENOXAPARIN 40 MG/0.4 ML SYG SC (08:44)
[2017-08-25] MEDS: FUROSEMIDE 20 MG TAB PO (08:50)
[2017-08-25 09:01] LABS: ALANINE AMINOTRANSFERASE 174 IU/L (13-69); ALBUMIN 3.5 g/dl (3.3-4.9); ALBUMIN/GLOBULIN RATIO 1.09; ALKALINE PHOSPHATASE 102 IU/L (42-121); ANION GAP 16 (8-16); ASPARTATE AMINO TRANSFERASE 64 IU/L (15-46); BILIRUBIN,INDIRECT 0.6 mg/dl (0-1.1); BILIRUBIN,TOTAL 0.6 mg/dl (0.2-1.3); BLOOD UREA NITROGEN 16 mg/dl (7-20); CALCIUM 8.6 mg/dl (8.4-10.2); CARBON DIOXIDE 25 mmol/L (21-31); CHLORIDE 103 mmol/L (97-110); CREATININE 0.93 mg/dl (0.61-1.24); GLUCOSE 85 mg/dl (70-220); MAGNESIUM 1.7 mg/dl (1.7-2.5); POTASSIUM 4.7 mmol/L (3.5-5.1); SODIUM 139 mmol/L (135-144); TOTAL PROTEIN 6.7 g/dl (6.1-8.1)
[2017-08-25] MEDS: DIGOXIN 0.125 MG TAB PO (12:54)
== END 2017-08-25 13:57 | disposition home health service (06) | DRG 308 ==
LOC: PP2 08-13 00:45 → MS4 08-19 08:13 → E/R 00:05 → MS4 04:59
PROC: 0T9B70Z Drainage of Bladder with Drainage Device, Via Natural or Artificial Opening (ICD-10-PCS; 2017-08-12)
PROC: 4B02XTZ Measurement of Cardiac Defibrillator, External Approach (ICD-10-PCS; principal; 2017-08-14)
DX: I48.91 Unspecified atrial fibrillation (principal); I50.43 Acute on chronic combined systolic (congestive) and diastolic (congestive) heart failure; N17.9 Acute kidney failure, unspecified; E87.2 Acidosis; I95.9 Hypotension, unspecified; I42.9 Cardiomyopathy, unspecified; I11.0 Hypertensive heart disease with heart failure; E87.1 Hypo-osmolality and hyponatremia; L97.821 Non-pressure chronic ulcer of other part of left lower leg limited to breakdown of skin; L97.811 Non-pressure chronic ulcer of other part of right lower leg limited to breakdown of skin; E87.5 Hyperkalemia; J44.9 Chronic obstructive pulmonary disease, unspecified; R53.81 Other malaise; Z91.14 Patient's other noncompliance with medication regimen; D64.9 Anemia, unspecified; E78.5 Hyperlipidemia, unspecified; K52.9 Noninfective gastroenteritis and colitis, unspecified; F17.210 Nicotine dependence, cigarettes, uncomplicated; R33.9 Retention of urine, unspecified; R26.2 Difficulty in walking, not elsewhere classified; Z95.810 Presence of automatic (implantable) cardiac defibrillator; Z99.81 Dependence on supplemental oxygen; Z79.82 Long term (current) use of aspirin
CPT/HCPCS: 36415; 36600; 71010; 74176; 76775; 80048; 80053; 80076; 80162; 81001; 81003; 82043; 82550; 82553; 82803; 83605; 83690; 83735; 83880; 84100; 84155; 84300; 84484; 85025; 85610; 85730; 93005; 93306; 94640; 94644; 94664; 96361; 96374; 96375; 97116; 97163; 97530; 99291-25; J1940

== ENCOUNTER 2017-09-02 01:57 | Emergency (ER) | payer MEDICARE, OTHER ==
[2017-09-02] MEDS: GABAPENTIN 300 MG CAP PO (03:04)
== END 2017-09-02 04:40 | disposition home or self-care (01) ==
LOC: E/R 01:57
DX: M79.605 Pain in left leg (principal); M79.604 Pain in right leg; I10 Essential (primary) hypertension; I25.10 Atherosclerotic heart disease of native coronary artery without angina pectoris; J44.9 Chronic obstructive pulmonary disease, unspecified; R40.2142 Coma scale, eyes open, spontaneous, at arrival to emergency department; R40.2252 Coma scale, best verbal response, oriented, at arrival to emergency department; R40.2362 Coma scale, best motor response, obeys commands, at arrival to emergency department; Z95.0 Presence of cardiac pacemaker; Z79.82 Long term (current) use of aspirin
CPT/HCPCS: 99283

== ENCOUNTER 2017-09-10 06:48 | Observation (INO) | payer MEDICARE, OTHER ==
[2017-09-10 08:09] LABS: ADD MAN DIFF? NO
[2017-09-10 08:12] LABS: BASOPHILS % 0.3 % (0.0-2.0); HEMATOCRIT 31.1 % (42.0-52.0); HEMOGLOBIN 10.2 g/dl (14.0-18.0); LYMPHOCYTES # 0.9 10^3/ul (0.8-2.9); LYMPHOCYTES % 14.5 % (15.0-51.0); MEAN CORPUSCULAR HEMOGLOBIN 31.4 pg (29.0-33.0); MEAN CORPUSCULAR HGB CONC 32.8 g/dl (32.0-37.0); MEAN CORPUSCULAR VOLUME 95.7 fl (82.0-101.0); MEAN PLATELET VOLUME 10.5 fl (7.4-10.4); MONOCYTE # 0.9 10^3/ul (0.3-0.9); MONOCYTES % 13.1 % (0.0-11.0); NEUTROPHIL # 4.7 10^3/ul (1.6-7.5); NEUTROPHILS % 71.8 % (39.0-77.0); PLATELET COUNT 164 10^3/UL (140-415); RED BLOOD COUNT 3.25 10^6/ul (4.70-6.10); RED CELL DISTRIBUTION WIDTH 20.2 % (11.5-14.5)
[2017-09-10 08:12] LABS: WHITE BLOOD COUNT 6.5 10^3/ul (4.8-10.8)
[2017-09-10] MEDS: CEFTRIAXONE 1 GM/50 ML (PMX) 50 ML IVPB (08:18)
[2017-09-10] MEDS: AZITHROMYCIN 500MG/NS (PMX) 250 ML IVPB ×2 (08:19→08:50)
[2017-09-10] MEDS: morphine 4 MG/ML VIAL IV (08:19)
[2017-09-10] MEDS: SOD CHLORIDE 0.9% 1,000 ML IV ×3 (08:20→19:04)
[2017-09-10 08:38] LABS: ALANINE AMINOTRANSFERASE 41 IU/L (13-69); ALBUMIN 3.5 g/dl (3.3-4.9); ALKALINE PHOSPHATASE 86 IU/L (42-121); ANION GAP 18 (8-16); ASPARTATE AMINO TRANSFERASE 34 IU/L (15-46); BILIRUBIN,INDIRECT 1.8 mg/dl (0-1.1); BILIRUBIN,TOTAL 1.8 mg/dl (0.2-1.3); BLOOD UREA NITROGEN 13 mg/dl (7-20); CALCIUM 8.2 mg/dl (8.4-10.2); CARBON DIOXIDE 21 mmol/L (21-31); CHLORIDE 106 mmol/L (97-110); CREATININE 0.81 mg/dl (0.61-1.24); GLUCOSE 94 mg/dl (70-220); LIPASE 93 U/L (23-300); POTASSIUM 3.7 mmol/L (3.5-5.1); SODIUM 141 mmol/L (135-144)
[2017-09-10 08:49] LABS: TROPONIN-I 0.036 ng/ml (0.00-0.12)
[2017-09-10] MEDS: IPRATROPIUM (NEB) 0.5 MG/2.5 ML AMP NEB (09:52)
[2017-09-10] MEDS: ALBUTEROL 0.083% (NEB) 2.5 MG/3 ML AMP NEB (09:53)
[2017-09-10] MEDS: SOD CHLORIDE 0.9% IV (10:08)
[2017-09-10 11:02] LABS: LACTIC ACID 4.8 mmol/L (0.5-2.0)
[2017-09-10] MEDS ORDERED: ACETAMINOPHEN 325 MG TAB PO (12:00)
[2017-09-10 12:39] LABS: MAGNESIUM 1.3 mg/dl (1.7-2.5)
[2017-09-10 13:22] LABS: LACTIC ACID 5.9 mmol/L (0.5-2.0)
[2017-09-10] MEDS ORDERED: DILTIAZEM 25 MG INJ IV (14:00)
[2017-09-10 15:34] LABS: LACTIC ACID 9.3 mmol/L (0.5-2.0)
[2017-09-10] MEDS: ONDANSETRON 4 MG INJ IV (15:39)
[2017-09-10] MEDS: ASPIRIN 81 MG TAB PO (15:39)
[2017-09-10] MEDS: HYDROCODONE/APAP (5/325) TAB PO (15:39)
[2017-09-10] MEDS: LEVOFLOXACIN 500MG/D5W (PMX) 100 ML IVPB (16:19)
[2017-09-10 17:53] LABS: LACTIC ACID 9.7 mmol/L (0.5-2.0)
[2017-09-10] MEDS: DILTIAZEM 25 MG INJ IV (17:59)
[2017-09-10] MEDS: MAGNESIUM SULFATE 3 GM in DEXTROSE 5% 100 ML IVPB (18:27)
[2017-09-10] MEDS: ATORVASTATIN 40 MG TAB PO (20:58)
[2017-09-10] MEDS: GABAPENTIN 300 MG CAP PO (20:59)
[2017-09-10] MEDS: FAMOTIDINE 20 MG TAB PO (21:01)
[2017-09-10] MEDS ORDERED: morphine 2 MG INJ (21:29)
[2017-09-10] MEDS: morphine 2 MG INJ IV (21:45)
[2017-09-11] MEDS: SOD CHLORIDE 0.9% 1,000 ML IV ×4 (02:30→13:15)
[2017-09-11] MEDS: morphine 2 MG INJ IV ×4 (04:10→22:04)
[2017-09-11 07:47] LABS: ADD MAN DIFF? NO
[2017-09-11 08:13] LABS: ANION GAP 19 (8-16); BASOPHILS % 0.5 % (0.0-2.0); BLOOD UREA NITROGEN 19 mg/dl (7-20); CALCIUM 8.6 mg/dl (8.4-10.2); CARBON DIOXIDE 19 mmol/L (21-31); CHLORIDE 105 mmol/L (97-110); CREATININE 1.05 mg/dl (0.61-1.24); EOSINOPHILS % 0.7 % (0.0-7.0); GLUCOSE 102 mg/dl (70-220); HEMATOCRIT 33.3 % (42.0-52.0); HEMOGLOBIN 10.9 g/dl (14.0-18.0); LYMPHOCYTES # 1.4 10^3/ul (0.8-2.9); LYMPHOCYTES % 23.9 % (15.0-51.0); MAGNESIUM 1.8 mg/dl (1.7-2.5); MEAN CORPUSCULAR HEMOGLOBIN 32.6 pg (29.0-33.0); MEAN CORPUSCULAR HGB CONC 32.7 g/dl (32.0-37.0); MEAN CORPUSCULAR VOLUME 99.7 fl (82.0-101.0); MEAN PLATELET VOLUME 11.6 fl (7.4-10.4); MONOCYTE # 1.1 10^3/ul (0.3-0.9); MONOCYTES % 18.7 % (0.0-11.0); NEUTROPHIL # 3.3 10^3/ul (1.6-7.5); NEUTROPHILS % 55.9 % (39.0-77.0); PLATELET COUNT 161 10^3/UL (140-415); POTASSIUM 4.6 mmol/L (3.5-5.1); RED BLOOD COUNT 3.34 10^6/ul (4.70-6.10); RED CELL DISTRIBUTION WIDTH 20.9 % (11.5-14.5); SODIUM 138 mmol/L (135-144)
[2017-09-11 08:13] LABS: WHITE BLOOD COUNT 5.9 10^3/ul (4.8-10.8)
[2017-09-11] MEDS ORDERED: FUROSEMIDE 20 MG TAB PO (09:00)
[2017-09-11] MEDS: FAMOTIDINE 20 MG TAB PO ×2 (09:03→20:11)
[2017-09-11] MEDS: GABAPENTIN 300 MG CAP PO ×2 (09:03→20:12)
[2017-09-11] MEDS: ASPIRIN 81 MG TAB PO (09:03)
[2017-09-11] MEDS: ONDANSETRON 4 MG INJ IV (12:39)
[2017-09-11] MEDS: MAGNESIUM HYDROXIDE 30ML CUP PO (12:41)
[2017-09-11] MEDS: DOCUSATE SODIUM 100 MG CAP PO ×2 (12:41→20:13)
[2017-09-11] MEDS: LEVOFLOXACIN 500MG/D5W (PMX) 100 ML IVPB (13:16)
[2017-09-11 14:37] LABS: LACTIC ACID 3.3 mmol/L (0.5-2.0)
[2017-09-11] MEDS ORDERED: ALBUTEROL/IPRATROPIUM (NEB) 3 ML AMP HHN (15:30)
[2017-09-11] MEDS: SOD CHLORIDE 0.45% 1,000 ML IV (16:16)
[2017-09-11] MEDS: ENOXAPARIN 40 MG/0.4 ML SYG SC (16:26)
[2017-09-11] MEDS: ATORVASTATIN 40 MG TAB PO (20:18)
[2017-09-11] MEDS: HYDROCODONE/APAP (5/325) TAB PO (20:48)
[2017-09-12] MEDS: morphine 2 MG INJ IV ×2 (05:15→12:28)
[2017-09-12] MEDS: FAMOTIDINE 20 MG TAB PO (08:53)
[2017-09-12] MEDS: GABAPENTIN 300 MG CAP PO (08:54)
[2017-09-12] MEDS: ASPIRIN 81 MG TAB PO (08:54)
[2017-09-12] MEDS: DOCUSATE SODIUM 100 MG CAP PO (08:56)
[2017-09-12] MEDS: ENOXAPARIN 40 MG/0.4 ML SYG SC (09:01)
[2017-09-12 10:34] LABS: ADD MAN DIFF? NO
[2017-09-12 10:37] LABS: WHITE BLOOD COUNT 5.2 10^3/ul (4.8-10.8)
[2017-09-12 10:37] LABS: BASOPHILS % 0.2 % (0.0-2.0); EOSINOPHILS % 0.4 % (0.0-7.0); HEMATOCRIT 31.4 % (42.0-52.0); HEMOGLOBIN 10.3 g/dl (14.0-18.0); LYMPHOCYTES # 0.8 10^3/ul (0.8-2.9); LYMPHOCYTES % 14.4 % (15.0-51.0); MEAN CORPUSCULAR HEMOGLOBIN 31.9 pg (29.0-33.0); MEAN CORPUSCULAR HGB CONC 32.8 g/dl (32.0-37.0); MEAN CORPUSCULAR VOLUME 97.2 fl (82.0-101.0); MEAN PLATELET VOLUME 10.9 fl (7.4-10.4); MONOCYTE # 0.6 10^3/ul (0.3-0.9); MONOCYTES % 10.7 % (0.0-11.0); NEUTROPHIL # 3.9 10^3/ul (1.6-7.5); NEUTROPHILS % 73.9 % (39.0-77.0); PLATELET COUNT 141 10^3/UL (140-415); RED BLOOD COUNT 3.23 10^6/ul (4.70-6.10); RED CELL DISTRIBUTION WIDTH 20.2 % (11.5-14.5)
[2017-09-12 11:19] LABS: ANION GAP 14 (8-16); BLOOD UREA NITROGEN 23 mg/dl (7-20); CALCIUM 8.2 mg/dl (8.4-10.2); CARBON DIOXIDE 19 mmol/L (21-31); CHLORIDE 103 mmol/L (97-110); CREATININE 1.08 mg/dl (0.61-1.24); GLUCOSE 109 mg/dl (70-220); SODIUM 132 mmol/L (135-144)
[2017-09-12 11:28] LABS: LACTIC ACID 2.5 mmol/L (0.5-2.0)
[2017-09-12] MEDS: LEVOFLOXACIN 500MG/D5W (PMX) 100 ML IVPB (14:04)
== END 2017-09-12 17:00 | disposition home or self-care (01) ==
LOC: E/R 06:48 → MS4 11:52
DX: A41.9 Sepsis, unspecified organism (principal); J44.1 Chronic obstructive pulmonary disease with (acute) exacerbation; I11.0 Hypertensive heart disease with heart failure; I50.9 Heart failure, unspecified; I25.5 Ischemic cardiomyopathy; E78.5 Hyperlipidemia, unspecified; G62.9 Polyneuropathy, unspecified; I48.0 Paroxysmal atrial fibrillation; L97.929 Non-pressure chronic ulcer of unspecified part of left lower leg with unspecified severity; L97.919 Non-pressure chronic ulcer of unspecified part of right lower leg with unspecified severity; L29.9 Pruritus, unspecified; Z79.01 Long term (current) use of anticoagulants; Z99.81 Dependence on supplemental oxygen; Z79.82 Long term (current) use of aspirin
CPT/HCPCS: 36415; 71045; 80048; 80053; 83605; 83690; 83735; 84484; 85025; 87040; 87070; 87400; 93005; 94664; 96361; 96365; 96367; 96375; 99217; 99291-25; G0378

== ENCOUNTER 2017-09-16 05:55 | Emergency (ER) | payer MEDICARE, OTHER ==
[2017-09-16 07:35] LABS: ADD MAN DIFF? NO
[2017-09-16 07:45] LABS: BASOPHILS % 0.4 % (0.0-2.0); EOSINOPHILS % 0.7 % (0.0-7.0); HEMATOCRIT 30.8 % (42.0-52.0); HEMOGLOBIN 10.2 g/dl (14.0-18.0); LYMPHOCYTES # 1.1 10^3/ul (0.8-2.9); LYMPHOCYTES % 19.7 % (15.0-51.0); MEAN CORPUSCULAR HEMOGLOBIN 32.2 pg (29.0-33.0); MEAN CORPUSCULAR HGB CONC 33.1 g/dl (32.0-37.0); MEAN CORPUSCULAR VOLUME 97.2 fl (82.0-101.0); MONOCYTE # 0.9 10^3/ul (0.3-0.9); MONOCYTES % 16.8 % (0.0-11.0); NEUTROPHIL # 3.3 10^3/ul (1.6-7.5); NEUTROPHILS % 62.2 % (39.0-77.0); PLATELET COUNT 121 10^3/UL (140-415); RED BLOOD COUNT 3.17 10^6/ul (4.70-6.10); RED CELL DISTRIBUTION WIDTH 21.4 % (11.5-14.5)
[2017-09-16 07:45] LABS: WHITE BLOOD COUNT 5.4 10^3/ul (4.8-10.8)
[2017-09-16 08:01] LABS: ANION GAP 14 (8-16); BLOOD UREA NITROGEN 11 mg/dl (7-20); CALCIUM 8.3 mg/dl (8.4-10.2); CARBON DIOXIDE 24 mmol/L (21-31); CHLORIDE 107 mmol/L (97-110); CREATININE 0.72 mg/dl (0.61-1.24); GLUCOSE 91 mg/dl (70-220); POTASSIUM 4.1 mmol/L (3.5-5.1); SODIUM 141 mmol/L (135-144)
[2017-09-16 08:02] LABS: INR 1.11; PROTIME 14.5 Sec (11.9-14.9); PT RATIO 1.1
[2017-09-16 08:11] LABS: B-TYPE NATRIURETIC PEPTIDE 3900 PG/ML (0-125); TROPONIN-I 0.025 ng/ml (0.00-0.12)
== END 2017-09-16 11:17 | disposition home or self-care (01) ==
LOC: E/R 05:55
DX: I50.9 Heart failure, unspecified (principal); G62.9 Polyneuropathy, unspecified; D69.6 Thrombocytopenia, unspecified; D64.9 Anemia, unspecified; I10 Essential (primary) hypertension; Z87.891 Personal history of nicotine dependence; Z96.649 Presence of unspecified artificial hip joint; Z95.0 Presence of cardiac pacemaker; Z79.82 Long term (current) use of aspirin
CPT/HCPCS: 36415; 71045; 80048; 83880; 84484; 85025; 85610; 93005; 99285-25

== ENCOUNTER 2017-09-18 04:43 | Inpatient (IN) | payer MEDICARE, OTHER ==
[2017-09-18] MEDS: IPRATROPIUM (NEB) 0.5 MG/2.5 ML AMP INH (06:33)
[2017-09-18] MEDS: ALBUTEROL 0.083% (NEB) 2.5 MG/3 ML AMP INH (06:33)
[2017-09-18 07:06] LABS: ADD MAN DIFF? NO
[2017-09-18 07:09] LABS: WHITE BLOOD COUNT 5.9 10^3/ul (4.8-10.8)
[2017-09-18 07:09] LABS: BASOPHILS % 0.5 % (0.0-2.0); EOSINOPHILS # 0.1 10^3/ul (0.0-0.5); EOSINOPHILS % 0.9 % (0.0-7.0); HEMATOCRIT 33.4 % (42.0-52.0); HEMOGLOBIN 11.1 g/dl (14.0-18.0); LYMPHOCYTES # 1.2 10^3/ul (0.8-2.9); LYMPHOCYTES % 19.6 % (15.0-51.0); MEAN CORPUSCULAR HEMOGLOBIN 32.4 pg (29.0-33.0); MEAN CORPUSCULAR HGB CONC 33.2 g/dl (32.0-37.0); MEAN CORPUSCULAR VOLUME 97.4 fl (82.0-101.0); MEAN PLATELET VOLUME 10.5 fl (7.4-10.4); MONOCYTE # 0.8 10^3/ul (0.3-0.9); MONOCYTES % 14.3 % (0.0-11.0); NEUTROPHIL # 3.8 10^3/ul (1.6-7.5); NEUTROPHILS % 64.4 % (39.0-77.0); PLATELET COUNT 144 10^3/UL (140-415); RED BLOOD COUNT 3.43 10^6/ul (4.70-6.10); RED CELL DISTRIBUTION WIDTH 21.2 % (11.5-14.5)
[2017-09-18 07:32] LABS: INR 1.12; PROTIME 14.6 Sec (11.9-14.9); PT RATIO 1.1
[2017-09-18 07:33] LABS: PARTIAL THROMBOPLASTIN TIME 33.6 Sec (25.0-35.0)
[2017-09-18 07:41] LABS: ALANINE AMINOTRANSFERASE 43 IU/L (13-69); ALBUMIN 3.6 g/dl (3.3-4.9); ALBUMIN/GLOBULIN RATIO 0.97; ALKALINE PHOSPHATASE 110 IU/L (42-121); ANION GAP 17 (8-16); ASPARTATE AMINO TRANSFERASE 74 IU/L (15-46); BILIRUBIN,INDIRECT 0.7 mg/dl (0-1.1); BILIRUBIN,TOTAL 0.7 mg/dl (0.2-1.3); BLOOD UREA NITROGEN 12 mg/dl (7-20); CALCIUM 8.3 mg/dl (8.4-10.2); CARBON DIOXIDE 24 mmol/L (21-31); CHLORIDE 106 mmol/L (97-110); CREATININE 0.79 mg/dl (0.61-1.24); GLUCOSE 95 mg/dl (70-220); POTASSIUM 4.1 mmol/L (3.5-5.1); SODIUM 143 mmol/L (135-144); TOTAL PROTEIN 7.3 g/dl (6.1-8.1)
[2017-09-18] MEDS: ONDANSETRON 4 MG INJ IV (07:42)
[2017-09-18] MEDS: morphine 4 MG/ML VIAL IV (07:42)
[2017-09-18 07:44] LABS: AADO2 Arterial 52.1 mmHg (7.0-24.0); Allen Test ACCEPTAB; Arterial Base Excess -1.6 mmol/L (-3.0-3); Arterial Blood Gas Oxygen Sat 93.2 mmHG (95.0-98.0); Arterial COHb 0.3 % (0.0-3.0); Arterial Fraction of Oxyhgb 92.5 % (93.0-99.0); Arterial HCO3 19.9 mmol/L (22.0-26.0); Arterial MetHb 0.4 % (0.0-1.5); Arterial pCO2 24.7 mmhg (35-45); MODE ROOM AIR; Site Right Radial
[2017-09-18 07:51] LABS: B-TYPE NATRIURETIC PEPTIDE 3840 PG/ML (0-125); TROPONIN-I 0.031 ng/ml (0.00-0.12)
[2017-09-18] MEDS ORDERED: NACL 0.9% 3 ML SYG IV (13:30)
[2017-09-18] MEDS ORDERED: ACETAMINOPHEN 325 MG TAB PO (13:30)
[2017-09-18] MEDS: FUROSEMIDE 40 MG INJ IV (14:16)
[2017-09-18] MEDS ORDERED: ONDANSETRON 4 MG INJ (17:07)
[2017-09-18] MEDS: HYDROCODONE/APAP (5/325) TAB PO (19:37)
[2017-09-18] MEDS: ATORVASTATIN 40 MG TAB PO (22:58)
[2017-09-19] MEDS: LORAZEPAM 2 MG INJ IV (00:22)
[2017-09-19 05:46] LABS: ADD MAN DIFF? NO
[2017-09-19 05:50] LABS: BASOPHILS % 0.8 % (0.0-2.0); EOSINOPHILS % 0.6 % (0.0-7.0); HEMATOCRIT 31.7 % (42.0-52.0); HEMOGLOBIN 10.6 g/dl (14.0-18.0); LYMPHOCYTES % 19.7 % (15.0-51.0); MEAN CORPUSCULAR HEMOGLOBIN 31.8 pg (29.0-33.0); MEAN CORPUSCULAR HGB CONC 33.4 g/dl (32.0-37.0); MEAN CORPUSCULAR VOLUME 95.2 fl (82.0-101.0); MONOCYTES % 18.2 % (0.0-11.0); NEUTROPHIL # 3.2 10^3/ul (1.6-7.5); NEUTROPHILS % 60.5 % (39.0-77.0); PLATELET COUNT 136 10^3/UL (140-415); RED BLOOD COUNT 3.33 10^6/ul (4.70-6.10); RED CELL DISTRIBUTION WIDTH 20.6 % (11.5-14.5)
[2017-09-19 05:50] LABS: WHITE BLOOD COUNT 5.3 10^3/ul (4.8-10.8)
[2017-09-19 06:28] LABS: ANION GAP 15 (8-16); BLOOD UREA NITROGEN 17 mg/dl (7-20); CALCIUM 8.4 mg/dl (8.4-10.2); CARBON DIOXIDE 22 mmol/L (21-31); CHLORIDE 104 mmol/L (97-110); CREATININE 0.93 mg/dl (0.61-1.24); GLUCOSE 84 mg/dl (70-220); MAGNESIUM 1.4 mg/dl (1.7-2.5); POTASSIUM 4.2 mmol/L (3.5-5.1); SODIUM 137 mmol/L (135-144)
[2017-09-19] MEDS: ASPIRIN 81 MG TAB PO (08:12)
[2017-09-19] MEDS: ENOXAPARIN 40 MG/0.4 ML SYG SC (08:13)
[2017-09-19] MEDS: HYDROCODONE/APAP (5/325) TAB PO ×2 (08:14→17:25)
[2017-09-19] MEDS: traMADol 50 MG TAB PO (12:05)
[2017-09-19] MEDS: MAGNESIUM SULFATE 4 GM/100 ML 100 ML IVPB (12:14)
[2017-09-19] MEDS: ONDANSETRON 4 MG INJ IV (15:07)
[2017-09-19] MEDS: MULTIVITAMINS THERAPEUTIC TAB PO (17:00)
[2017-09-19] MEDS: FOLIC ACID 1 MG TAB PO (18:19)
[2017-09-19] MEDS: FUROSEMIDE 40 MG TAB PO (18:19)
[2017-09-19] MEDS: THIAMINE 100 MG TAB PO (18:19)
[2017-09-19] MEDS: ATORVASTATIN 40 MG TAB PO (22:39)
[2017-09-20] MEDS: HYDROCODONE/APAP (5/325) TAB PO ×2 (08:34→20:41)
[2017-09-20] MEDS: THIAMINE 100 MG TAB PO (08:35)
[2017-09-20] MEDS: FOLIC ACID 1 MG TAB PO (08:35)
[2017-09-20] MEDS: FUROSEMIDE 40 MG TAB PO (08:36)
[2017-09-20 10:07] LABS: ANION GAP 16 (8-16); BLOOD UREA NITROGEN 22 mg/dl (7-20); CALCIUM 7.5 mg/dl (8.4-10.2); CARBON DIOXIDE 19 mmol/L (21-31); CHLORIDE 102 mmol/L (97-110); CREATININE 1.03 mg/dl (0.61-1.24); GLUCOSE 88 mg/dl (70-220); MAGNESIUM 1.8 mg/dl (1.7-2.5); PHOSPHORUS 3.8 mg/dl (2.5-4.9); SODIUM 132 mmol/L (135-144)
[2017-09-20] MEDS: MULTIVITAMINS THERAPEUTIC TAB PO (10:21)
[2017-09-20] MEDS: ASPIRIN 325 MG TAB PO (10:21)
[2017-09-20] MEDS: ENOXAPARIN 40 MG/0.4 ML SYG SC (10:24)
[2017-09-20] MEDS: ATORVASTATIN 40 MG TAB PO (20:48)
[2017-09-20] MEDS: morphine 2 MG INJ IV (21:25)
[2017-09-20] MEDS: ONDANSETRON 4 MG INJ IV (21:25)
[2017-09-21] MEDS: ONDANSETRON 4 MG INJ IV (01:33)
[2017-09-21] MEDS: traMADol 50 MG TAB PO ×2 (03:21→14:18)
[2017-09-21] MEDS: ONDANSETRON (ODT) 4 MG TAB ODT (03:22)
[2017-09-21 05:44] LABS: ANION GAP 17 (8-16); BLOOD UREA NITROGEN 22 mg/dl (7-20); CALCIUM 8.1 mg/dl (8.4-10.2); CARBON DIOXIDE 23 mmol/L (21-31); CHLORIDE 99 mmol/L (97-110); GLUCOSE 79 mg/dl (70-220); MAGNESIUM 1.5 mg/dl (1.7-2.5); POTASSIUM 3.9 mmol/L (3.5-5.1); SODIUM 135 mmol/L (135-144)
[2017-09-21] MEDS: ASPIRIN 325 MG TAB PO (08:59)
[2017-09-21] MEDS: FUROSEMIDE 40 MG TAB PO (09:00)
[2017-09-21] MEDS: THIAMINE 100 MG TAB PO (09:00)
[2017-09-21] MEDS: MULTIVITAMINS THERAPEUTIC TAB PO (09:00)
[2017-09-21] MEDS: FOLIC ACID 1 MG TAB PO (09:00)
[2017-09-21] MEDS: ENOXAPARIN 40 MG/0.4 ML SYG SC (09:10)
[2017-09-21] MEDS: MAGNESIUM OXIDE 400 MG TAB PO (14:06)
[2017-09-21] MEDS: MAGNESIUM SULFATE 2 GM/50 ML 50 ML IVPB (14:07)
== END 2017-09-21 16:28 | disposition home health service (06) | DRG 293 ==
LOC: E/R 04:43 → MS3 08:54
DX: I11.0 Hypertensive heart disease with heart failure (principal); I42.9 Cardiomyopathy, unspecified; I48.0 Paroxysmal atrial fibrillation; J44.9 Chronic obstructive pulmonary disease, unspecified; I50.23 Acute on chronic systolic (congestive) heart failure; I42.6 Alcoholic cardiomyopathy; B18.2 Chronic viral hepatitis C; F17.210 Nicotine dependence, cigarettes, uncomplicated; Z79.82 Long term (current) use of aspirin; Z95.0 Presence of cardiac pacemaker
CPT/HCPCS: 36415; 36600; 71045; 80048; 80053; 80306; 82803; 83735; 83880; 84100; 84484; 85025; 85610; 85730; 93005; 94664; 96374; 96375; 99291-25

== ENCOUNTER 2017-09-24 14:58 | Inpatient (IN) | payer MEDICARE, OTHER ==
[2017-09-24] MEDS: CEFEPIME 1GM/50 ML (PMX) 50 ML IVPB (16:08)
[2017-09-24] MEDS: METHYLPREDNISOLONE 125 MG INJ IV (16:08)
[2017-09-24 16:13] LABS: ADD MAN DIFF? NO
[2017-09-24 16:14] LABS: WHITE BLOOD COUNT 5.6 10^3/ul (4.8-10.8)
[2017-09-24 16:14] LABS: BASOPHILS % 0.4 % (0.0-2.0); HEMATOCRIT 33.6 % (42.0-52.0); HEMOGLOBIN 11.2 g/dl (14.0-18.0); LYMPHOCYTES # 0.9 10^3/ul (0.8-2.9); LYMPHOCYTES % 16.2 % (15.0-51.0); MEAN CORPUSCULAR HEMOGLOBIN 31.8 pg (29.0-33.0); MEAN CORPUSCULAR HGB CONC 33.3 g/dl (32.0-37.0); MEAN CORPUSCULAR VOLUME 95.5 fl (82.0-101.0); MEAN PLATELET VOLUME 10.5 fl (7.4-10.4); MONOCYTE # 0.8 10^3/ul (0.3-0.9); MONOCYTES % 13.5 % (0.0-11.0); NEUTROPHIL # 3.9 10^3/ul (1.6-7.5); NEUTROPHILS % 69.7 % (39.0-77.0); PLATELET COUNT 143 10^3/UL (140-415); RED BLOOD COUNT 3.52 10^6/ul (4.70-6.10); RED CELL DISTRIBUTION WIDTH 20.3 % (11.5-14.5)
[2017-09-24] MEDS: ALBUTEROL 0.083% (NEB) 2.5 MG/3 ML AMP NEB (16:31)
[2017-09-24 16:37] LABS: ALANINE AMINOTRANSFERASE 42 IU/L (13-69); ALBUMIN 3.5 g/dl (3.3-4.9); ALKALINE PHOSPHATASE 107 IU/L (42-121); ANION GAP 19 (8-16); ASPARTATE AMINO TRANSFERASE 64 IU/L (15-46); BILIRUBIN,INDIRECT 0.7 mg/dl (0-1.1); BILIRUBIN,TOTAL 0.7 mg/dl (0.2-1.3); BLOOD UREA NITROGEN 13 mg/dl (7-20); CALCIUM 8.1 mg/dl (8.4-10.2); CARBON DIOXIDE 22 mmol/L (21-31); CHLORIDE 97 mmol/L (97-110); GLUCOSE 95 mg/dl (70-220); POTASSIUM 4.5 mmol/L (3.5-5.1); SODIUM 133 mmol/L (135-144)
[2017-09-24 16:37] LABS: LACTIC ACID 3.3 mmol/L (0.5-2.0)
[2017-09-24 16:51] LABS: B-TYPE NATRIURETIC PEPTIDE 6680 PG/ML (0-125); TROPONIN-I 0.023 ng/ml (0.00-0.12)
[2017-09-24] MEDS: ONDANSETRON 4 MG INJ IV (17:00)
[2017-09-24] MEDS: VANCOMYCIN 1 GM (PMX) 250 ML IVPB (17:00)
[2017-09-24] MEDS: morphine 4 MG/ML VIAL IV (17:00)
[2017-09-24] MEDS: SODIUM CHLORIDE 0.9% 1L BAG IV* (17:00)
[2017-09-24 18:56] LABS: LACTIC ACID 3.3 mmol/L (0.5-2.0)
[2017-09-24] MEDS ORDERED: ACETAMINOPHEN 325 MG TAB PO (19:30)
[2017-09-24] MEDS ORDERED: ONDANSETRON 4 MG INJ IV (19:30)
[2017-09-24 20:14] LABS: LACTIC ACID 3.4 mmol/L (0.5-2.0)
[2017-09-25] MEDS: morphine 2 MG INJ IV ×3 (03:55→18:25)
[2017-09-25] MEDS: FUROSEMIDE 40 MG INJ IV (06:59)
[2017-09-25 07:33] LABS: ADD MAN DIFF? NO
[2017-09-25 07:48] LABS: BASOPHILS % 0.3 % (0.0-2.0); HEMATOCRIT 34.8 % (42.0-52.0); HEMOGLOBIN 11.5 g/dl (14.0-18.0); LYMPHOCYTES # 0.7 10^3/ul (0.8-2.9); LYMPHOCYTES % 23.7 % (15.0-51.0); MEAN CORPUSCULAR HEMOGLOBIN 31.3 pg (29.0-33.0); MEAN CORPUSCULAR VOLUME 94.6 fl (82.0-101.0); MEAN PLATELET VOLUME 10.8 fl (7.4-10.4); MONOCYTE # 0.2 10^3/ul (0.3-0.9); MONOCYTES % 5.9 % (0.0-11.0); NEUTROPHILS % 69.8 % (39.0-77.0); PLATELET COUNT 132 10^3/UL (140-415); RED BLOOD COUNT 3.68 10^6/ul (4.70-6.10); RED CELL DISTRIBUTION WIDTH 20.1 % (11.5-14.5)
[2017-09-25 07:48] LABS: WHITE BLOOD COUNT 2.9 10^3/ul (4.8-10.8)
[2017-09-25 08:15] LABS: ANION GAP 15 (8-16); BLOOD UREA NITROGEN 17 mg/dl (7-20); CALCIUM 8.2 mg/dl (8.4-10.2); CARBON DIOXIDE 23 mmol/L (21-31); CHLORIDE 100 mmol/L (97-110); CREATININE 0.92 mg/dl (0.61-1.24); GLUCOSE 165 mg/dl (70-220); MAGNESIUM 1.5 mg/dl (1.7-2.5); PHOSPHORUS 2.6 mg/dl (2.5-4.9); POTASSIUM 4.4 mmol/L (3.5-5.1); SODIUM 134 mmol/L (135-144)
[2017-09-25 08:20] LABS: ETHANOL < 10.0 mg/dl
[2017-09-25 08:24] LABS: LACTIC ACID 2.9 mmol/L (0.5-2.0)
[2017-09-25] MEDS: OSELTAMIVIR 75 MG CAP PO ×2 (09:07→21:25)
[2017-09-25] MEDS: ALBUTEROL/IPRATROPIUM (NEB) 3 ML AMP HHN ×3 (10:00→21:00)
[2017-09-25] MEDS: BENAZEPRIL 5 MG TAB PO (10:35)
[2017-09-25] MEDS: BENZONATATE 100 MG CAP PO (16:19)
[2017-09-25] MEDS: ZOLPIDEM 5 MG TAB PO (21:25)
[2017-09-25] MEDS: ATORVASTATIN 40 MG TAB PO (21:25)
[2017-09-26] MEDS: ALBUTEROL/IPRATROPIUM (NEB) 3 ML AMP HHN ×6 (01:00→21:00)
[2017-09-26] MEDS: LORAZEPAM 0.5 MG TAB PO (02:42)
[2017-09-26] MEDS: BENZONATATE 100 MG CAP PO (02:42)
[2017-09-26] MEDS: FUROSEMIDE 40 MG INJ IV (06:00)
[2017-09-26] MEDS: morphine 2 MG INJ IV ×3 (06:11→20:32)
[2017-09-26] MEDS: BENAZEPRIL 5 MG TAB PO (09:00)
[2017-09-26] MEDS: OSELTAMIVIR 75 MG CAP PO ×2 (09:35→20:31)
[2017-09-26] MEDS: BUMETANIDE 1 MG TAB PO (14:46)
[2017-09-26 15:47] LABS: ADD MAN DIFF? NO
[2017-09-26 15:49] LABS: WHITE BLOOD COUNT 7.7 10^3/ul (4.8-10.8)
[2017-09-26 15:49] LABS: ABNORMAL IP MESSAGE 1; HEMATOCRIT 33.8 % (42.0-52.0); LYMPHOCYTES # 0.6 10^3/ul (0.8-2.9); LYMPHOCYTES % 7.2 % (15.0-51.0); MEAN CORPUSCULAR HEMOGLOBIN 31.5 pg (29.0-33.0); MEAN CORPUSCULAR HGB CONC 32.5 g/dl (32.0-37.0); MEAN CORPUSCULAR VOLUME 96.8 fl (82.0-101.0); MEAN PLATELET VOLUME 11.8 fl (7.4-10.4); MONOCYTE # 0.4 10^3/ul (0.3-0.9); MONOCYTES % 4.8 % (0.0-11.0); NEUTROPHIL # 6.7 10^3/ul (1.6-7.5); NEUTROPHILS % 87.6 % (39.0-77.0); PLATELET COUNT 108 10^3/UL (140-415); POSITIVE DIFF @See below; RED BLOOD COUNT 3.49 10^6/ul (4.70-6.10); RED CELL DISTRIBUTION WIDTH 19.9 % (11.5-14.5)
[2017-09-26 16:11] LABS: ANION GAP 18 (8-16); BLOOD UREA NITROGEN 26 mg/dl (7-20); CARBON DIOXIDE 21 mmol/L (21-31); CHLORIDE 99 mmol/L (97-110); CREATININE 1.08 mg/dl (0.61-1.24); GLUCOSE 142 mg/dl (70-220); MAGNESIUM 1.6 mg/dl (1.7-2.5); POTASSIUM 4.7 mmol/L (3.5-5.1); SODIUM 133 mmol/L (135-144)
[2017-09-26] MEDS: ATORVASTATIN 40 MG TAB PO (20:31)
[2017-09-26 21:36] LABS: AMPHETAMINE/METHAMPHETAMINE Negative (NEGATIVE); BARBITURATES Negative (NEGATIVE); BENZODIAZEPINES Negative (NEGATIVE); CANNABINOIDS Negative (NEGATIVE); COCAINE Negative (NEGATIVE); OPIATES Positive (NEGATIVE)
[2017-09-27] MEDS: ALBUTEROL/IPRATROPIUM (NEB) 3 ML AMP HHN ×6 (01:00→20:18)
[2017-09-27] MEDS: morphine 2 MG INJ IV ×5 (03:36→22:54)
[2017-09-27] MEDS: FUROSEMIDE 40 MG INJ IV (05:56)
[2017-09-27 06:58] LABS: ADD MAN DIFF? NO
[2017-09-27 07:03] LABS: WHITE BLOOD COUNT 6.8 10^3/ul (4.8-10.8)
[2017-09-27 07:03] LABS: ABNORMAL IP MESSAGE 1; HEMATOCRIT 33.9 % (42.0-52.0); LYMPHOCYTES # 0.6 10^3/ul (0.8-2.9); LYMPHOCYTES % 8.4 % (15.0-51.0); MEAN CORPUSCULAR HGB CONC 32.4 g/dl (32.0-37.0); MEAN CORPUSCULAR VOLUME 95.5 fl (82.0-101.0); MEAN PLATELET VOLUME 11.2 fl (7.4-10.4); MONOCYTE # 0.4 10^3/ul (0.3-0.9); MONOCYTES % 5.7 % (0.0-11.0); NEUTROPHIL # 5.8 10^3/ul (1.6-7.5); NEUTROPHILS % 85.6 % (39.0-77.0); PLATELET COUNT 109 10^3/UL (140-415); POSITIVE DIFF @See below; RED BLOOD COUNT 3.55 10^6/ul (4.70-6.10); RED CELL DISTRIBUTION WIDTH 20.1 % (11.5-14.5)
[2017-09-27 07:26] LABS: ANION GAP 17 (8-16); BLOOD UREA NITROGEN 32 mg/dl (7-20); CARBON DIOXIDE 24 mmol/L (21-31); CHLORIDE 99 mmol/L (97-110); CREATININE 1.24 mg/dl (0.61-1.24); GLUCOSE 107 mg/dl (70-220); POTASSIUM 4.6 mmol/L (3.5-5.1); SODIUM 135 mmol/L (135-144)
[2017-09-27] MEDS: OSELTAMIVIR 75 MG CAP PO ×2 (08:55→21:13)
[2017-09-27] MEDS: BENAZEPRIL 5 MG TAB PO (10:25)
[2017-09-27] MEDS: ONDANSETRON 4 MG INJ IV ×2 (10:58→18:56)
[2017-09-27] MEDS: BUMETANIDE 1 MG TAB PO ×2 (13:12→21:13)
[2017-09-27] MEDS: BENZONATATE 100 MG CAP PO (21:13)
[2017-09-27] MEDS: ATORVASTATIN 40 MG TAB PO (21:13)
[2017-09-28] MEDS: HALOPERIDOL 5 MG INJ IM (00:04)
[2017-09-28] MEDS: ALBUTEROL/IPRATROPIUM (NEB) 3 ML AMP HHN ×6 (01:00→21:52)
[2017-09-28] MEDS: BUMETANIDE 1 MG TAB PO ×3 (05:36→17:15)
[2017-09-28] MEDS: morphine 2 MG INJ IV ×4 (08:18→23:19)
[2017-09-28] MEDS: BENAZEPRIL 10 MG TAB PO (08:18)
[2017-09-28] MEDS: OSELTAMIVIR 75 MG CAP PO ×2 (08:19→20:07)
[2017-09-28 11:54] LABS: ANION GAP 14 (8-16); BLOOD UREA NITROGEN 38 mg/dl (7-20); CALCIUM 7.7 mg/dl (8.4-10.2); CARBON DIOXIDE 24 mmol/L (21-31); CHLORIDE 98 mmol/L (97-110); CREATININE 1.45 mg/dl (0.61-1.24); GLUCOSE 79 mg/dl (70-220); POTASSIUM 4.3 mmol/L (3.5-5.1); SODIUM 132 mmol/L (135-144)
[2017-09-28] MEDS: GUAIFENESIN/DM 5ML CUP PO (17:15)
[2017-09-28] MEDS: ATORVASTATIN 40 MG TAB PO (20:07)
[2017-09-28] MEDS: SOD CHLORIDE 0.9% 500 ML IV (20:42)
[2017-09-28] MEDS: ONDANSETRON 4 MG INJ IV (21:13)
[2017-09-29] MEDS: GUAIFENESIN/DM 5ML CUP PO (00:53)
[2017-09-29] MEDS: ALBUTEROL/IPRATROPIUM (NEB) 3 ML AMP HHN ×4 (01:00→13:00)
[2017-09-29] MEDS: MENTHOL/METH SALICYLATE 30 GM OINT TOP (04:09)
[2017-09-29] MEDS: morphine 2 MG INJ IV ×3 (04:32→17:39)
[2017-09-29] MEDS: BUMETANIDE 1 MG TAB PO ×2 (06:15→17:39)
[2017-09-29] MEDS: BENAZEPRIL 10 MG TAB PO (08:11)
[2017-09-29] MEDS: OSELTAMIVIR 75 MG CAP PO ×2 (08:12→21:08)
[2017-09-29] MEDS: METOPROLOL (XL) 50 MG TAB PO (12:36)
[2017-09-29] MEDS: LORAZEPAM 0.5 MG TAB PO (21:08)
[2017-09-29] MEDS: ATORVASTATIN 40 MG TAB PO (21:08)
[2017-09-29] MEDS: SALMETEROL/FLUTICASONE 250/50 INHA INH (21:08)
[2017-09-30] MEDS: morphine 2 MG INJ IV ×4 (02:37→17:46)
[2017-09-30] MEDS: BUMETANIDE 1 MG TAB PO ×2 (05:00→17:00)
[2017-09-30] MEDS: OSELTAMIVIR 75 MG CAP PO ×2 (08:29→20:43)
[2017-09-30] MEDS: SALMETEROL/FLUTICASONE 250/50 INHA INH ×2 (08:30→20:43)
[2017-09-30] MEDS: GUAIFENESIN/DM 5ML CUP PO ×2 (08:30→14:28)
[2017-09-30] MEDS: METOPROLOL (XL) 50 MG TAB PO (09:00)
[2017-09-30] MEDS: BENAZEPRIL 10 MG TAB PO (09:00)
[2017-09-30 12:16] LABS: ANION GAP 11 (8-16); BLOOD UREA NITROGEN 22 mg/dl (7-20); CALCIUM 7.8 mg/dl (8.4-10.2); CARBON DIOXIDE 38 mmol/L (21-31); CHLORIDE 88 mmol/L (97-110); CREATININE 1.02 mg/dl (0.61-1.24); GLUCOSE 84 mg/dl (70-220); POTASSIUM 3.4 mmol/L (3.5-5.1); SODIUM 134 mmol/L (135-144)
[2017-09-30] MEDS: POTASSIUM CHLORIDE (SR) 20 MEQ TAB PO (13:12)
[2017-09-30] MEDS: ATORVASTATIN 40 MG TAB PO (20:43)
[2017-09-30] MEDS: LORAZEPAM 0.5 MG TAB PO (20:43)
[2017-10-01] MEDS: ONDANSETRON 4 MG INJ IV ×2 (00:15→10:11)
[2017-10-01] MEDS: morphine 2 MG INJ IV ×4 (00:15→20:45)
[2017-10-01] MEDS: GUAIFENESIN/DM 5ML CUP PO (01:01)
[2017-10-01] MEDS: BUMETANIDE 1 MG TAB PO (05:54)
[2017-10-01] MEDS: SALMETEROL/FLUTICASONE 250/50 INHA INH ×2 (08:26→20:45)
[2017-10-01] MEDS: OSELTAMIVIR 75 MG CAP PO ×2 (08:26→20:45)
[2017-10-01] MEDS: METOPROLOL (XL) 50 MG TAB PO (08:26)
[2017-10-01] MEDS ORDERED: IPRATROPIUM (HFA) 12.9 GM INHALER INH (16:00)
[2017-10-01] MEDS: BUMETANIDE 0.5 MG TAB PO (17:00)
[2017-10-01] MEDS: ATORVASTATIN 40 MG TAB PO (20:45)
[2017-10-02] MEDS: ONDANSETRON 4 MG INJ IV ×2 (02:18→20:37)
[2017-10-02] MEDS: morphine 2 MG INJ IV ×3 (02:19→18:43)
[2017-10-02] MEDS: BUMETANIDE 0.5 MG TAB PO ×2 (05:00→17:00)
[2017-10-02] MEDS: SALMETEROL/FLUTICASONE 250/50 INHA INH ×2 (08:49→20:38)
[2017-10-02] MEDS: OSELTAMIVIR 75 MG CAP PO ×2 (08:49→20:37)
[2017-10-02] MEDS: METOPROLOL (XL) 50 MG TAB PO (08:52)
[2017-10-02] MEDS: MENTHOL/METH SALICYLATE 30 GM OINT TOP ×2 (10:06→17:37)
[2017-10-02] MEDS: ENOXAPARIN 40 MG/0.4 ML SYG SC (10:08)
[2017-10-02 16:01] LABS: ADD MAN DIFF? NO
[2017-10-02 16:04] LABS: WHITE BLOOD COUNT 6.3 10^3/ul (4.8-10.8)
[2017-10-02 16:04] LABS: BASOPHILS % 0.2 % (0.0-2.0); EOSINOPHILS # 0.1 10^3/ul (0.0-0.5); EOSINOPHILS % 1.9 % (0.0-7.0); HEMATOCRIT 34.1 % (42.0-52.0); HEMOGLOBIN 11.4 g/dl (14.0-18.0); LYMPHOCYTES # 0.9 10^3/ul (0.8-2.9); LYMPHOCYTES % 14.8 % (15.0-51.0); MEAN CORPUSCULAR HGB CONC 33.4 g/dl (32.0-37.0); MEAN CORPUSCULAR VOLUME 92.7 fl (82.0-101.0); MEAN PLATELET VOLUME 10.6 fl (7.4-10.4); MONOCYTE # 0.9 10^3/ul (0.3-0.9); MONOCYTES % 14.8 % (0.0-11.0); NEUTROPHIL # 4.3 10^3/ul (1.6-7.5); NEUTROPHILS % 68.1 % (39.0-77.0); PLATELET COUNT 174 10^3/UL (140-415); RED BLOOD COUNT 3.68 10^6/ul (4.70-6.10); RED CELL DISTRIBUTION WIDTH 19.1 % (11.5-14.5)
[2017-10-02 16:21] LABS: PHOSPHORUS 2.4 mg/dl (2.5-4.9)
[2017-10-02 16:21] LABS: MAGNESIUM 1.2 mg/dl (1.7-2.5)
[2017-10-02 16:33] LABS: TROPONIN-I 0.017 ng/ml (0.00-0.12)
[2017-10-02 16:42] LABS: ANION GAP 12 (8-16); BLOOD UREA NITROGEN 13 mg/dl (7-20); CALCIUM 7.4 mg/dl (8.4-10.2); CARBON DIOXIDE 29 mmol/L (21-31); CHLORIDE 96 mmol/L (97-110); CREATININE 0.85 mg/dl (0.61-1.24); GLUCOSE 120 mg/dl (70-220); POTASSIUM 3.3 mmol/L (3.5-5.1); SODIUM 134 mmol/L (135-144)
[2017-10-02] MEDS: GUAIFENESIN/DM 5ML CUP PO (16:42)
[2017-10-02] MEDS: ATORVASTATIN 40 MG TAB PO (20:37)
[2017-10-03] MEDS: MENTHOL/METH SALICYLATE 30 GM OINT TOP (00:18)
[2017-10-03] MEDS: morphine 2 MG INJ IV ×5 (00:20→21:35)
[2017-10-03] MEDS: GUAIFENESIN/DM 5ML CUP PO ×2 (00:28→20:11)
[2017-10-03] MEDS: LORAZEPAM 0.5 MG TAB PO ×2 (02:59→22:30)
[2017-10-03] MEDS: ONDANSETRON 4 MG INJ IV ×3 (05:00→20:11)
[2017-10-03] MEDS: BUMETANIDE 0.5 MG TAB PO ×2 (05:31→17:33)
[2017-10-03] MEDS: OSELTAMIVIR 75 MG CAP PO ×2 (09:20→20:10)
[2017-10-03] MEDS: SALMETEROL/FLUTICASONE 250/50 INHA INH ×2 (09:20→20:09)
[2017-10-03] MEDS: ENOXAPARIN 40 MG/0.4 ML SYG SC (09:21)
[2017-10-03] MEDS: METOPROLOL (XL) 50 MG TAB PO (09:21)
[2017-10-03] MEDS ORDERED: MAGNESIUM HYDROXIDE 30ML CUP (13:45)
[2017-10-03] MEDS: MAGNESIUM HYDROXIDE 30ML CUP PO (13:51)
[2017-10-03 14:50] LABS: ANION GAP 17 (8-16); BLOOD UREA NITROGEN 15 mg/dl (7-20); CARBON DIOXIDE 27 mmol/L (21-31); CHLORIDE 95 mmol/L (97-110); CREATININE 0.95 mg/dl (0.61-1.24); GLUCOSE 108 mg/dl (70-220); MAGNESIUM 1.3 mg/dl (1.7-2.5); POTASSIUM 4.6 mmol/L (3.5-5.1); SODIUM 134 mmol/L (135-144)
[2017-10-03] MEDS: MAGNESIUM SULFATE 4 GM/100 ML 100 ML IVPB (20:09)
[2017-10-03] MEDS: ATORVASTATIN 40 MG TAB PO (20:09)
[2017-10-03] MEDS: MAGNESIUM OXIDE 400 MG TAB PO (20:10)
[2017-10-03] MEDS: DOCUSATE SODIUM 100 MG CAP PO (20:10)
[2017-10-04] MEDS: ONDANSETRON 4 MG INJ IV ×2 (03:50→22:03)
[2017-10-04] MEDS: morphine 2 MG INJ IV ×2 (03:50→11:53)
[2017-10-04] MEDS: BUMETANIDE 0.5 MG TAB PO ×2 (06:00→17:00)
[2017-10-04] MEDS: METOPROLOL (XL) 50 MG TAB PO (09:00)
[2017-10-04] MEDS: ENOXAPARIN 40 MG/0.4 ML SYG SC (09:19)
[2017-10-04] MEDS: DOCUSATE SODIUM 100 MG CAP PO ×2 (09:23→20:13)
[2017-10-04] MEDS: SALMETEROL/FLUTICASONE 250/50 INHA INH ×2 (09:23→21:35)
[2017-10-04] MEDS: OSELTAMIVIR 75 MG CAP PO ×2 (09:23→20:13)
[2017-10-04] MEDS: MAGNESIUM OXIDE 400 MG TAB PO ×2 (09:23→20:13)
[2017-10-04 15:58] LABS: ANION GAP 15 (8-16); BLOOD UREA NITROGEN 25 mg/dl (7-20); CALCIUM 8.2 mg/dl (8.4-10.2); CARBON DIOXIDE 26 mmol/L (21-31); CHLORIDE 94 mmol/L (97-110); CREATININE 1.27 mg/dl (0.61-1.24); GLUCOSE 100 mg/dl (70-220); MAGNESIUM 2.2 mg/dl (1.7-2.5); POTASSIUM 4.5 mmol/L (3.5-5.1); SODIUM 130 mmol/L (135-144)
[2017-10-04] MEDS: ATORVASTATIN 40 MG TAB PO (20:13)
[2017-10-04] MEDS: morphine LIQ (10 MG/5 ML) CUP PO (20:16)
[2017-10-04] MEDS: LORAZEPAM 0.5 MG TAB PO (21:35)
[2017-10-05] MEDS: morphine LIQ (10 MG/5 ML) CUP PO ×3 (01:38→17:17)
[2017-10-05] MEDS: GUAIFENESIN/DM 5ML CUP PO (02:45)
[2017-10-05] MEDS: BUMETANIDE 0.5 MG TAB PO ×2 (05:00→17:00)
[2017-10-05] MEDS: OSELTAMIVIR 75 MG CAP PO ×2 (08:34→19:42)
[2017-10-05] MEDS: DOCUSATE SODIUM 100 MG CAP PO ×2 (08:34→19:42)
[2017-10-05] MEDS: SALMETEROL/FLUTICASONE 250/50 INHA INH ×2 (08:35→19:42)
[2017-10-05] MEDS: METOPROLOL (XL) 50 MG TAB PO (08:35)
[2017-10-05] MEDS: ONDANSETRON 4 MG INJ IV ×2 (08:35→16:06)
[2017-10-05] MEDS: MAGNESIUM OXIDE 400 MG TAB PO ×2 (08:35→19:42)
[2017-10-05] MEDS: ENOXAPARIN 40 MG/0.4 ML SYG SC (08:37)
[2017-10-05] MEDS: MENTHOL/METH SALICYLATE 30 GM OINT TOP (18:25)
[2017-10-05] MEDS: ATORVASTATIN 40 MG TAB PO (19:43)
[2017-10-06] MEDS: BUMETANIDE 0.5 MG TAB PO ×2 (05:00→17:00)
[2017-10-06] MEDS: ONDANSETRON 4 MG INJ IV (07:54)
[2017-10-06] MEDS: morphine LIQ (10 MG/5 ML) CUP PO ×2 (07:54→21:14)
[2017-10-06] MEDS: OSELTAMIVIR 75 MG CAP PO (08:52)
[2017-10-06] MEDS: METOPROLOL (XL) 50 MG TAB PO (08:53)
[2017-10-06] MEDS: SALMETEROL/FLUTICASONE 250/50 INHA INH ×2 (08:53→21:09)
[2017-10-06] MEDS: DOCUSATE SODIUM 100 MG CAP PO ×2 (08:53→21:08)
[2017-10-06] MEDS: MAGNESIUM OXIDE 400 MG TAB PO ×2 (08:53→21:09)
[2017-10-06] MEDS: ENOXAPARIN 40 MG/0.4 ML SYG SC (08:57)
[2017-10-06] MEDS: ATORVASTATIN 40 MG TAB PO (21:09)
[2017-10-06] MEDS: LORAZEPAM 0.5 MG TAB PO (23:00)
[2017-10-06] MEDS: GUAIFENESIN/DM 5ML CUP PO (23:00)
[2017-10-07] MEDS: DIPHENHYDRAMINE 25 MG CAP PO (02:28)
[2017-10-07] MEDS: BUMETANIDE 0.5 MG TAB PO ×2 (05:00→17:00)
[2017-10-07] MEDS: MAGNESIUM OXIDE 400 MG TAB PO ×2 (08:35→20:08)
[2017-10-07] MEDS: DOCUSATE SODIUM 100 MG CAP PO ×2 (08:35→20:08)
[2017-10-07] MEDS: SALMETEROL/FLUTICASONE 250/50 INHA INH ×3 (08:35→20:07)
[2017-10-07] MEDS: METOPROLOL (XL) 50 MG TAB PO (08:36)
[2017-10-07] MEDS: ENOXAPARIN 40 MG/0.4 ML SYG SC ×2 (08:37→08:45)
[2017-10-07] MEDS: ATORVASTATIN 40 MG TAB PO (20:08)
[2017-10-08] MEDS: ONDANSETRON 4 MG INJ IV (04:27)
[2017-10-08] MEDS: BUMETANIDE 0.5 MG TAB PO ×2 (05:00→17:00)
[2017-10-08] MEDS: DOCUSATE SODIUM 100 MG CAP PO ×2 (08:37→22:10)
[2017-10-08] MEDS: SALMETEROL/FLUTICASONE 250/50 INHA INH ×2 (08:37→21:00)
[2017-10-08] MEDS: MAGNESIUM OXIDE 400 MG TAB PO ×2 (08:37→22:11)
[2017-10-08] MEDS: ENOXAPARIN 40 MG/0.4 ML SYG SC (08:38)
[2017-10-08] MEDS: METOPROLOL (XL) 50 MG TAB PO (08:40)
[2017-10-08] MEDS: morphine LIQ (10 MG/5 ML) CUP PO ×3 (08:40→22:13)
[2017-10-08] MEDS ORDERED: ACETAMINOPHEN 325 MG TAB (14:30)
[2017-10-08] MEDS: ACETAMINOPHEN 325 MG TAB PO (14:31)
[2017-10-08] MEDS: ATORVASTATIN 40 MG TAB PO (22:10)
[2017-10-09] MEDS: BUMETANIDE 0.5 MG TAB PO (05:00)
[2017-10-09] MEDS: SALMETEROL/FLUTICASONE 250/50 INHA INH (08:30)
[2017-10-09] MEDS: DOCUSATE SODIUM 100 MG CAP PO (08:30)
[2017-10-09] MEDS: MAGNESIUM OXIDE 400 MG TAB PO (08:31)
[2017-10-09] MEDS: morphine LIQ (10 MG/5 ML) CUP PO ×2 (08:32→09:50)
[2017-10-09] MEDS: ENOXAPARIN 40 MG/0.4 ML SYG SC (08:43)
[2017-10-09] MEDS: METOPROLOL (XL) 50 MG TAB PO (08:43)
== END 2017-10-09 09:36 | disposition home health service (06) | DRG 193 ==
LOC: PP2 22:22 → E/R 14:58 → MS4 19:19
DX: J10.1 Influenza due to other identified influenza virus with other respiratory manifestations (principal); I50.23 Acute on chronic systolic (congestive) heart failure; N17.9 Acute kidney failure, unspecified; J96.10 Chronic respiratory failure, unspecified whether with hypoxia or hypercapnia; E87.2 Acidosis; I11.0 Hypertensive heart disease with heart failure; J44.9 Chronic obstructive pulmonary disease, unspecified; Z99.81 Dependence on supplemental oxygen; I48.0 Paroxysmal atrial fibrillation; I25.5 Ischemic cardiomyopathy; D64.9 Anemia, unspecified; F17.290 Nicotine dependence, other tobacco product, uncomplicated; F10.10 Alcohol abuse, uncomplicated; Z95.810 Presence of automatic (implantable) cardiac defibrillator; Z91.14 Patient's other noncompliance with medication regimen
CPT/HCPCS: 36415; 71045; 80048; 80053; 80306; 80307; 83605; 83735; 83880; 84100; 84443; 84484; 85025; 87040; 87081; 87400; 93005; 94640; 94664; 96365; 96367; 96375; 97110; 97116; 97162; 97530; 99285-25

== ENCOUNTER 2017-10-10 17:28 | Emergency (ER) | payer MEDICARE, OTHER | END 2017-10-10 22:10 | disposition left against medical advice (07) | LOC: E/R 17:28 | DX: Z53.21 Procedure and treatment not carried out due to patient leaving prior to being seen by health care provider (principal) ==

== ENCOUNTER 2017-10-12 05:25 | Inpatient (IN) | payer MEDICARE, OTHER ==
[2017-10-12 06:12] LABS: ADD MAN DIFF? NO
[2017-10-12 06:22] LABS: WHITE BLOOD COUNT 4.8 10^3/ul (4.8-10.8)
[2017-10-12 06:22] LABS: BASOPHILS % 0.8 % (0.0-2.0); EOSINOPHILS # 0.1 10^3/ul (0.0-0.5); EOSINOPHILS % 1.9 % (0.0-7.0); HEMATOCRIT 34.5 % (42.0-52.0); HEMOGLOBIN 11.7 g/dl (14.0-18.0); LYMPHOCYTES # 0.8 10^3/ul (0.8-2.9); LYMPHOCYTES % 16.6 % (15.0-51.0); MEAN CORPUSCULAR HEMOGLOBIN 31.1 pg (29.0-33.0); MEAN CORPUSCULAR HGB CONC 33.9 g/dl (32.0-37.0); MEAN CORPUSCULAR VOLUME 91.8 fl (82.0-101.0); MEAN PLATELET VOLUME 10.7 fl (7.4-10.4); MONOCYTE # 0.5 10^3/ul (0.3-0.9); MONOCYTES % 9.6 % (0.0-11.0); NEUTROPHIL # 3.4 10^3/ul (1.6-7.5); NEUTROPHILS % 70.9 % (39.0-77.0); PLATELET COUNT 185 10^3/UL (140-415); RED BLOOD COUNT 3.76 10^6/ul (4.70-6.10); RED CELL DISTRIBUTION WIDTH 19.2 % (11.5-14.5)
[2017-10-12] MEDS ORDERED: ONDANSETRON 4 MG INJ IV (06:30)
[2017-10-12] MEDS ORDERED: ACETAMINOPHEN 325 MG TAB PO (06:30)
[2017-10-12 07:12] LABS: ANION GAP 19 (8-16); BLOOD UREA NITROGEN 25 mg/dl (7-20); CALCIUM 8.7 mg/dl (8.4-10.2); CARBON DIOXIDE 25 mmol/L (21-31); CHLORIDE 99 mmol/L (97-110); CREATININE 1.23 mg/dl (0.61-1.24); GLUCOSE 95 mg/dl (70-220); POTASSIUM 3.9 mmol/L (3.5-5.1); SODIUM 139 mmol/L (135-144)
[2017-10-12] MEDS: SOD CHLORIDE 0.9% 1,000 ML IV (07:42)
[2017-10-12] MEDS: DILTIAZEM 25 MG INJ IV (07:42)
[2017-10-12] MEDS: FUROSEMIDE 40 MG INJ IV (07:43)
[2017-10-12] MEDS: ASPIRIN 81 MG TAB PO (07:43)
[2017-10-12] MEDS: HYDROCODONE/APAP (7.5/325) TAB PO ×2 (09:55→17:23)
[2017-10-12] MEDS: DOCUSATE SODIUM 100 MG CAP PO ×2 (11:00→20:45)
[2017-10-12] MEDS: ASPIRIN (EC) 81 MG TAB PO (11:00)
[2017-10-12] MEDS: FOLIC ACID 1 MG TAB PO (11:49)
[2017-10-12] MEDS: MULTIVITAMINS THERAPEUTIC TAB PO (11:49)
[2017-10-12] MEDS: THIAMINE 100 MG TAB PO (11:51)
[2017-10-12] MEDS: PREGABALIN 75 MG CAP PO ×2 (11:51→20:44)
[2017-10-12 13:15] LABS: PHOSPHORUS 3.3 mg/dl (2.5-4.9)
[2017-10-12 13:15] LABS: CREATINE KINASE 68 IU/L (23-200); MAGNESIUM 1.5 mg/dl (1.7-2.5)
[2017-10-12 13:29] LABS: CK INDEX 2.7; TROPONIN-I 0.023 ng/ml (0.00-0.12)
[2017-10-12 13:36] LABS: CK-MB 1.81 ng/ml (0.0-2.4)
[2017-10-12] MEDS: FUROSEMIDE 20 MG INJ IV (17:23)
[2017-10-12] MEDS: ONDANSETRON 4 MG INJ IV (17:24)
[2017-10-12] MEDS: MAGNESIUM SULFATE 2 GM/50 ML 50 ML IVPB (17:24)
[2017-10-12 18:52] LABS: CREATINE KINASE 62 IU/L (23-200)
[2017-10-12 19:04] LABS: CK INDEX 2.6; TROPONIN-I 0.021 ng/ml (0.00-0.12)
[2017-10-12 19:08] LABS: CK-MB 1.59 ng/ml (0.0-2.4)
[2017-10-12] MEDS: ATORVASTATIN 40 MG TAB PO (20:45)
[2017-10-12] MEDS: QUETIAPINE 25 MG TAB PO (20:45)
[2017-10-13] MEDS: FUROSEMIDE 20 MG INJ IV (06:40)
[2017-10-13 08:00] LABS: ADD MAN DIFF? NO
[2017-10-13] MEDS: HYDROCODONE/APAP (7.5/325) TAB PO ×3 (08:00→21:35)
[2017-10-13] MEDS: PREGABALIN 75 MG CAP PO ×2 (08:02→20:49)
[2017-10-13] MEDS: MULTIVITAMINS THERAPEUTIC TAB PO (08:02)
[2017-10-13] MEDS: DOCUSATE SODIUM 100 MG CAP PO ×2 (08:02→20:48)
[2017-10-13] MEDS: ASPIRIN (EC) 81 MG TAB PO (08:02)
[2017-10-13] MEDS: THIAMINE 100 MG TAB PO (08:02)
[2017-10-13] MEDS: QUETIAPINE 25 MG TAB PO ×2 (08:03→20:49)
[2017-10-13 08:09] LABS: BASOPHILS % 0.7 % (0.0-2.0); EOSINOPHILS # 0.2 10^3/ul (0.0-0.5); EOSINOPHILS % 3.2 % (0.0-7.0); HEMATOCRIT 31.5 % (42.0-52.0); HEMOGLOBIN 10.9 g/dl (14.0-18.0); LYMPHOCYTES # 1.3 10^3/ul (0.8-2.9); LYMPHOCYTES % 23.4 % (15.0-51.0); MEAN CORPUSCULAR HEMOGLOBIN 31.1 pg (29.0-33.0); MEAN CORPUSCULAR HGB CONC 34.6 g/dl (32.0-37.0); MEAN CORPUSCULAR VOLUME 89.7 fl (82.0-101.0); MONOCYTE # 0.5 10^3/ul (0.3-0.9); MONOCYTES % 9.1 % (0.0-11.0); NEUTROPHIL # 3.6 10^3/ul (1.6-7.5); NEUTROPHILS % 63.4 % (39.0-77.0); PLATELET COUNT 151 10^3/UL (140-415); RED BLOOD COUNT 3.51 10^6/ul (4.70-6.10)
[2017-10-13 08:09] LABS: WHITE BLOOD COUNT 5.6 10^3/ul (4.8-10.8)
[2017-10-13 08:26] LABS: ALANINE AMINOTRANSFERASE 36 IU/L (13-69); ALBUMIN 3.3 g/dl (3.3-4.9); ALBUMIN/GLOBULIN RATIO 0.91; ALKALINE PHOSPHATASE 103 IU/L (42-121); ANION GAP 11 (8-16); ASPARTATE AMINO TRANSFERASE 42 IU/L (15-46); BILIRUBIN,INDIRECT 1.2 mg/dl (0-1.1); BILIRUBIN,TOTAL 1.2 mg/dl (0.2-1.3); BLOOD UREA NITROGEN 27 mg/dl (7-20); CALCIUM 8.2 mg/dl (8.4-10.2); CARBON DIOXIDE 28 mmol/L (21-31); CHLORIDE 100 mmol/L (97-110); CREATININE 1.27 mg/dl (0.61-1.24); GLUCOSE 93 mg/dl (70-220); MAGNESIUM 1.5 mg/dl (1.7-2.5); PHOSPHORUS 3.5 mg/dl (2.5-4.9); POTASSIUM 4.4 mmol/L (3.5-5.1); SODIUM 135 mmol/L (135-144); TOTAL PROTEIN 6.9 g/dl (6.1-8.1)
[2017-10-13] MEDS: MAGNESIUM SULFATE 2 GM/50 ML 50 ML IVPB (12:18)
[2017-10-13] MEDS: FUROSEMIDE 40 MG INJ IV (18:03)
[2017-10-13] MEDS: ATORVASTATIN 40 MG TAB PO (20:49)
[2017-10-14] MEDS: SOD CHLORIDE 0.9% 1,000 ML IV (00:28)
[2017-10-14] MEDS ORDERED: SOD CHLORIDE 0.9% 500 ML IV (00:30)
[2017-10-14 06:24] LABS: ADD MAN DIFF? NO
[2017-10-14 06:31] LABS: WHITE BLOOD COUNT 4.9 10^3/ul (4.8-10.8)
[2017-10-14 06:31] LABS: BASOPHILS % 0.6 % (0.0-2.0); EOSINOPHILS # 0.1 10^3/ul (0.0-0.5); EOSINOPHILS % 2.4 % (0.0-7.0); HEMATOCRIT 30.7 % (42.0-52.0); HEMOGLOBIN 10.5 g/dl (14.0-18.0); LYMPHOCYTES # 1.1 10^3/ul (0.8-2.9); LYMPHOCYTES % 23.1 % (15.0-51.0); MEAN CORPUSCULAR HEMOGLOBIN 31.2 pg (29.0-33.0); MEAN CORPUSCULAR HGB CONC 34.2 g/dl (32.0-37.0); MEAN CORPUSCULAR VOLUME 91.1 fl (82.0-101.0); MEAN PLATELET VOLUME 11.6 fl (7.4-10.4); MONOCYTE # 0.5 10^3/ul (0.3-0.9); MONOCYTES % 9.6 % (0.0-11.0); NEUTROPHIL # 3.1 10^3/ul (1.6-7.5); NEUTROPHILS % 63.9 % (39.0-77.0); PLATELET COUNT 156 10^3/UL (140-415); RED BLOOD COUNT 3.37 10^6/ul (4.70-6.10); RED CELL DISTRIBUTION WIDTH 18.6 % (11.5-14.5)
[2017-10-14 06:57] LABS: ALANINE AMINOTRANSFERASE 33 IU/L (13-69); ALBUMIN 2.9 g/dl (3.3-4.9); ALBUMIN/GLOBULIN RATIO 0.76; ALKALINE PHOSPHATASE 100 IU/L (42-121); ANION GAP 11 (8-16); ASPARTATE AMINO TRANSFERASE 35 IU/L (15-46); BILIRUBIN,INDIRECT 0.7 mg/dl (0-1.1); BILIRUBIN,TOTAL 0.7 mg/dl (0.2-1.3); BLOOD UREA NITROGEN 31 mg/dl (7-20); CALCIUM 8.2 mg/dl (8.4-10.2); CARBON DIOXIDE 24 mmol/L (21-31); CHLORIDE 101 mmol/L (97-110); CREATININE 1.28 mg/dl (0.61-1.24); GLUCOSE 87 mg/dl (70-220); POTASSIUM 4.2 mmol/L (3.5-5.1); SODIUM 132 mmol/L (135-144); TOTAL PROTEIN 6.7 g/dl (6.1-8.1)
[2017-10-14] MEDS: DOCUSATE SODIUM 100 MG CAP PO ×2 (08:27→21:24)
[2017-10-14] MEDS: PREGABALIN 75 MG CAP PO ×2 (08:27→21:24)
[2017-10-14] MEDS: QUETIAPINE 25 MG TAB PO ×2 (08:28→21:24)
[2017-10-14] MEDS: THIAMINE 100 MG TAB PO (08:29)
[2017-10-14] MEDS: HYDROCODONE/APAP (7.5/325) TAB PO ×2 (08:29→17:11)
[2017-10-14] MEDS: ASPIRIN (EC) 81 MG TAB PO (08:29)
[2017-10-14] MEDS ORDERED: MAGNESIUM HYDROXIDE 30ML CUP PO (17:30)
[2017-10-14] MEDS: FUROSEMIDE 40 MG INJ IV (20:32)
[2017-10-14] MEDS: ATORVASTATIN 40 MG TAB PO (21:24)
[2017-10-15] MEDS: HYDROCODONE/APAP (7.5/325) TAB PO ×4 (00:12→20:56)
[2017-10-15] MEDS: FUROSEMIDE 40 MG INJ IV ×2 (05:18→18:52)
[2017-10-15] MEDS: DOCUSATE SODIUM 100 MG CAP PO ×2 (09:00→21:00)
[2017-10-15 09:23] LABS: ADD MAN DIFF? NO
[2017-10-15 09:26] LABS: WHITE BLOOD COUNT 5.9 10^3/ul (4.8-10.8)
[2017-10-15 09:26] LABS: BASOPHILS % 0.5 % (0.0-2.0); EOSINOPHILS # 0.1 10^3/ul (0.0-0.5); EOSINOPHILS % 1.9 % (0.0-7.0); HEMATOCRIT 30.2 % (42.0-52.0); HEMOGLOBIN 10.6 g/dl (14.0-18.0); LYMPHOCYTES % 16.7 % (15.0-51.0); MEAN CORPUSCULAR HEMOGLOBIN 31.6 pg (29.0-33.0); MEAN CORPUSCULAR HGB CONC 35.1 g/dl (32.0-37.0); MEAN CORPUSCULAR VOLUME 90.1 fl (82.0-101.0); MEAN PLATELET VOLUME 11.7 fl (7.4-10.4); MONOCYTE # 0.6 10^3/ul (0.3-0.9); MONOCYTES % 9.9 % (0.0-11.0); NEUTROPHIL # 4.2 10^3/ul (1.6-7.5); NEUTROPHILS % 70.8 % (39.0-77.0); PLATELET COUNT 165 10^3/UL (140-415); RED BLOOD COUNT 3.35 10^6/ul (4.70-6.10); RED CELL DISTRIBUTION WIDTH 18.6 % (11.5-14.5)
[2017-10-15] MEDS: PREGABALIN 75 MG CAP PO ×2 (09:39→21:39)
[2017-10-15] MEDS: METOPROLOL (XL) 25 MG TAB PO (09:40)
[2017-10-15] MEDS: QUETIAPINE 25 MG TAB PO ×2 (09:41→21:40)
[2017-10-15] MEDS: ASPIRIN (EC) 81 MG TAB PO (09:41)
[2017-10-15] MEDS: THIAMINE 100 MG TAB PO (09:43)
[2017-10-15] MEDS: ATORVASTATIN 40 MG TAB PO (21:39)
[2017-10-16] MEDS: FUROSEMIDE 40 MG INJ IV (05:38)
[2017-10-16] MEDS: QUETIAPINE 25 MG TAB PO (09:03)
[2017-10-16] MEDS: PREGABALIN 75 MG CAP PO (09:03)
[2017-10-16] MEDS: ASPIRIN (EC) 81 MG TAB PO (09:03)
[2017-10-16] MEDS: DOCUSATE SODIUM 100 MG CAP PO (09:03)
[2017-10-16] MEDS: THIAMINE 100 MG TAB PO (09:04)
[2017-10-16] MEDS: METOPROLOL (XL) 25 MG TAB PO (09:05)
[2017-10-16] MEDS: HYDROCODONE/APAP (7.5/325) TAB PO (13:46)
== END 2017-10-16 14:42 | disposition home or self-care (01) | DRG 292 ==
LOC: E/R 05:25 → TEL 06:16 → PP2 10-13 22:53
DX: I50.23 Acute on chronic systolic (congestive) heart failure (principal); I48.92 Unspecified atrial flutter; I48.0 Paroxysmal atrial fibrillation; I42.9 Cardiomyopathy, unspecified; G62.1 Alcoholic polyneuropathy; Z99.81 Dependence on supplemental oxygen; G62.9 Polyneuropathy, unspecified; F32.9 Major depressive disorder, single episode, unspecified; I07.1 Rheumatic tricuspid insufficiency; J44.9 Chronic obstructive pulmonary disease, unspecified; G89.29 Other chronic pain; I11.0 Hypertensive heart disease with heart failure; B18.2 Chronic viral hepatitis C; Z95.0 Presence of cardiac pacemaker; Z87.891 Personal history of nicotine dependence
CPT/HCPCS: 36415; 71045; 80048; 80053; 82550; 82553; 83735; 84100; 84484; 85025; 87075; 87081; 93005; 96374; 96375; 97161; 99217; 99291-25; G0378; J1940

== ENCOUNTER 2017-11-02 17:57 | Inpatient (IN) | payer MEDICARE, OTHER ==
[2017-11-02] MEDS: ASPIRIN 325 MG TAB PO (21:23)
[2017-11-02 21:38] LABS: ADD MAN DIFF? NO
[2017-11-02 21:42] LABS: BASOPHIL # 0.1 10^3/ul (0.0-0.1); BASOPHILS % 0.8 % (0.0-2.0); EOSINOPHILS # 0.1 10^3/ul (0.0-0.5); EOSINOPHILS % 2.2 % (0.0-7.0); HEMATOCRIT 34.2 % (42.0-52.0); HEMOGLOBIN 11.2 g/dl (14.0-18.0); LYMPHOCYTES % 15.9 % (15.0-51.0); MEAN CORPUSCULAR HEMOGLOBIN 29.2 pg (29.0-33.0); MEAN CORPUSCULAR HGB CONC 32.7 g/dl (32.0-37.0); MEAN CORPUSCULAR VOLUME 89.1 fl (82.0-101.0); MEAN PLATELET VOLUME 10.9 fl (7.4-10.4); MONOCYTE # 0.5 10^3/ul (0.3-0.9); MONOCYTES % 8.4 % (0.0-11.0); NEUTROPHIL # 4.3 10^3/ul (1.6-7.5); NEUTROPHILS % 72.5 % (39.0-77.0); PLATELET COUNT 193 10^3/UL (140-415); RED BLOOD COUNT 3.84 10^6/ul (4.70-6.10); RED CELL DISTRIBUTION WIDTH 19.9 % (11.5-14.5)
[2017-11-02] MEDS: IBUPROFEN 600 MG TAB PO (21:59)
[2017-11-02] MEDS: ACETAMINOPHEN 325 MG TAB PO (21:59)
[2017-11-02 22:01] LABS: ANION GAP 16 (8-16); BLOOD UREA NITROGEN 26 mg/dl (7-20); CALCIUM 8.7 mg/dl (8.4-10.2); CARBON DIOXIDE 22 mmol/L (21-31); CHLORIDE 105 mmol/L (97-110); CREATININE 1.16 mg/dl (0.61-1.24); GLUCOSE 81 mg/dl (70-220); POTASSIUM 4.4 mmol/L (3.5-5.1); SODIUM 139 mmol/L (135-144)
[2017-11-02 22:12] LABS: B-TYPE NATRIURETIC PEPTIDE 13400 PG/ML (0-125); TROPONIN-I 0.017 ng/ml (0.00-0.12)
[2017-11-03] MEDS: FUROSEMIDE 40 MG INJ IV
[2017-11-03] MEDS: CEFTRIAXONE 1 GM/50 ML (PMX) 50 ML IVPB (00:01)
[2017-11-03] MEDS: AZITHROMYCIN 500MG/NS (PMX) 250 ML IVPB (00:31)
[2017-11-03] MEDS ORDERED: morphine 4 MG/ML VIAL (02:40)
[2017-11-03] MEDS: morphine 4 MG/ML VIAL IV (02:45)
[2017-11-03] MEDS ORDERED: ALBUTEROL/IPRATROPIUM (NEB) 3 ML AMP HHN (03:30)
[2017-11-03] MEDS ORDERED: NITROGLYCERIN (SL) 0.4 MG TAB SL (03:30)
[2017-11-03] MEDS ORDERED: NACL 0.9% 3 ML SYG IV (03:30)
[2017-11-03 04:48] LABS: ADD MAN DIFF? NO
[2017-11-03 04:51] LABS: WHITE BLOOD COUNT 5.7 10^3/ul (4.8-10.8)
[2017-11-03 04:51] LABS: BASOPHILS % 0.7 % (0.0-2.0); EOSINOPHILS # 0.2 10^3/ul (0.0-0.5); HEMATOCRIT 30.8 % (42.0-52.0); HEMOGLOBIN 10.3 g/dl (14.0-18.0); LYMPHOCYTES # 0.9 10^3/ul (0.8-2.9); LYMPHOCYTES % 15.9 % (15.0-51.0); MEAN CORPUSCULAR HEMOGLOBIN 29.9 pg (29.0-33.0); MEAN CORPUSCULAR HGB CONC 33.4 g/dl (32.0-37.0); MEAN CORPUSCULAR VOLUME 89.5 fl (82.0-101.0); MONOCYTE # 0.6 10^3/ul (0.3-0.9); MONOCYTES % 9.8 % (0.0-11.0); NEUTROPHILS % 69.4 % (39.0-77.0); PLATELET COUNT 195 10^3/UL (140-415); RED BLOOD COUNT 3.44 10^6/ul (4.70-6.10); RED CELL DISTRIBUTION WIDTH 19.9 % (11.5-14.5)
[2017-11-03 05:32] LABS: CK-MB 5.75 ng/ml (0.0-2.4)
[2017-11-03 05:33] LABS: ALANINE AMINOTRANSFERASE 28 IU/L (13-69); ALBUMIN/GLOBULIN RATIO 0.78; ALKALINE PHOSPHATASE 103 IU/L (42-121); ANION GAP 16 (8-16); ASPARTATE AMINO TRANSFERASE 49 IU/L (15-46); BILIRUBIN,INDIRECT 0.5 mg/dl (0-1.1); BILIRUBIN,TOTAL 0.5 mg/dl (0.2-1.3); BLOOD UREA NITROGEN 27 mg/dl (7-20); CALCIUM 8.3 mg/dl (8.4-10.2); CARBON DIOXIDE 23 mmol/L (21-31); CHLORIDE 106 mmol/L (97-110); CREATININE 1.35 mg/dl (0.61-1.24); GLUCOSE 109 mg/dl (70-220); MAGNESIUM 1.5 mg/dl (1.7-2.5); SODIUM 141 mmol/L (135-144); TOTAL PROTEIN 6.8 g/dl (6.1-8.1)
[2017-11-03 05:34] LABS: CK INDEX 1.9
[2017-11-03 05:36] LABS: CREATINE KINASE 306 IU/L (23-200)
[2017-11-03] MEDS: LEVOFLOXACIN 500MG/D5W (PMX) 100 ML IVPB (05:46)
[2017-11-03] MEDS: FUROSEMIDE 20 MG INJ IV ×2 (05:47→17:28)
[2017-11-03 05:57] LABS: TROPONIN-I 0.023 ng/ml (0.00-0.12)
[2017-11-03 06:00] LABS: CHOL/HDL RATIO 4.4 RATIO; HDL CHOLESTEROL 22 mg/dl (31-75); LDL CHOLESTEROL,CALCULATED 62 mg/dl; TRIGLYCERIDES 69 mg/dl (0-149)
[2017-11-03 06:00] LABS: CHOLESTEROL 98 mg/dl (100-200)
[2017-11-03] MEDS: ONDANSETRON 4 MG INJ IV (07:44)
[2017-11-03] MEDS: morphine 2 MG INJ IV ×3 (07:45→20:52)
[2017-11-03 09:47] LABS: CREATINE KINASE 224 IU/L (23-200)
[2017-11-03 10:00] LABS: CK INDEX 2.1; TROPONIN-I 0.017 ng/ml (0.00-0.12)
[2017-11-03] MEDS: ASPIRIN 81 MG TAB PO (10:16)
[2017-11-03] MEDS: HEPARIN 5,000 UNIT/0.5 ML VIAL SC ×2 (10:18→20:53)
[2017-11-03] MEDS: MAGNESIUM OXIDE 400 MG TAB PO ×2 (10:21→20:51)
[2017-11-03] MEDS: ALBUMIN HUMAN 25% 100 ML IV (12:17)
[2017-11-04] MEDS: morphine 2 MG INJ IV ×5 (00:55→21:34)
[2017-11-04] MEDS: DIPHENHYDRAMINE 25 MG CAP PO ×4 (01:32→22:51)
[2017-11-04] MEDS: FUROSEMIDE 20 MG INJ IV ×2 (06:00→17:26)
[2017-11-04] MEDS: LEVOFLOXACIN 500MG/D5W (PMX) 100 ML IVPB (06:00)
[2017-11-04] MEDS: MAGNESIUM OXIDE 400 MG TAB PO ×2 (08:57→20:28)
[2017-11-04] MEDS: ASPIRIN 81 MG TAB PO (08:58)
[2017-11-04] MEDS: HEPARIN 5,000 UNIT/0.5 ML VIAL SC ×2 (09:05→20:31)
[2017-11-04 11:00] LABS: ADD MAN DIFF? NO
[2017-11-04 11:12] LABS: WHITE BLOOD COUNT 6.5 10^3/ul (4.8-10.8)
[2017-11-04 11:12] LABS: BASOPHILS % 0.5 % (0.0-2.0); EOSINOPHILS # 0.2 10^3/ul (0.0-0.5); EOSINOPHILS % 2.6 % (0.0-7.0); HEMOGLOBIN 11.1 g/dl (14.0-18.0); LYMPHOCYTES # 0.8 10^3/ul (0.8-2.9); LYMPHOCYTES % 11.6 % (15.0-51.0); MEAN CORPUSCULAR HEMOGLOBIN 29.8 pg (29.0-33.0); MEAN CORPUSCULAR HGB CONC 33.6 g/dl (32.0-37.0); MEAN CORPUSCULAR VOLUME 88.7 fl (82.0-101.0); MEAN PLATELET VOLUME 12.6 fl (7.4-10.4); MONOCYTE # 0.5 10^3/ul (0.3-0.9); MONOCYTES % 7.1 % (0.0-11.0); NEUTROPHIL # 5.1 10^3/ul (1.6-7.5); PLATELET COUNT 163 10^3/UL (140-415); RED BLOOD COUNT 3.72 10^6/ul (4.70-6.10); RED CELL DISTRIBUTION WIDTH 19.8 % (11.5-14.5)
[2017-11-04 11:34] LABS: ANION GAP 21 (8-16); BLOOD UREA NITROGEN 26 mg/dl (7-20); CALCIUM 8.6 mg/dl (8.4-10.2); CARBON DIOXIDE 21 mmol/L (21-31); CHLORIDE 104 mmol/L (97-110); CREATININE 1.26 mg/dl (0.61-1.24); GLUCOSE 83 mg/dl (70-220); MAGNESIUM 1.3 mg/dl (1.7-2.5); SODIUM 142 mmol/L (135-144)
[2017-11-04] MEDS: ACETAMINOPHEN 325 MG TAB PO (17:26)
[2017-11-04] MEDS: ONDANSETRON 4 MG INJ IV (17:26)
[2017-11-04] MEDS: MAGNESIUM SULFATE 4 GM/100 ML 100 ML IVPB (18:42)
[2017-11-05] MEDS: DIPHENHYDRAMINE 25 MG CAP PO ×2 (03:41→09:14)
[2017-11-05] MEDS: morphine 2 MG INJ IM ×2 (04:08→09:54)
[2017-11-05] MEDS: FUROSEMIDE 20 MG INJ IV ×2 (06:00→17:56)
[2017-11-05] MEDS: LEVOFLOXACIN 500MG/D5W (PMX) 100 ML IVPB (06:00)
[2017-11-05 07:55] LABS: ADD MAN DIFF? NO
[2017-11-05 07:58] LABS: BASOPHILS % 0.3 % (0.0-2.0); EOSINOPHILS # 0.1 10^3/ul (0.0-0.5); EOSINOPHILS % 1.7 % (0.0-7.0); HEMATOCRIT 33.3 % (42.0-52.0); HEMOGLOBIN 11.2 g/dl (14.0-18.0); LYMPHOCYTES % 14.6 % (15.0-51.0); MEAN CORPUSCULAR HEMOGLOBIN 29.7 pg (29.0-33.0); MEAN CORPUSCULAR HGB CONC 33.6 g/dl (32.0-37.0); MEAN CORPUSCULAR VOLUME 88.3 fl (82.0-101.0); MEAN PLATELET VOLUME 10.6 fl (7.4-10.4); MONOCYTE # 0.6 10^3/ul (0.3-0.9); MONOCYTES % 8.9 % (0.0-11.0); NEUTROPHIL # 5.1 10^3/ul (1.6-7.5); NEUTROPHILS % 74.1 % (39.0-77.0); PLATELET COUNT 167 10^3/UL (140-415); RED BLOOD COUNT 3.77 10^6/ul (4.70-6.10); RED CELL DISTRIBUTION WIDTH 19.5 % (11.5-14.5)
[2017-11-05 07:58] LABS: WHITE BLOOD COUNT 6.9 10^3/ul (4.8-10.8)
[2017-11-05 08:26] LABS: ANION GAP 19 (8-16); BLOOD UREA NITROGEN 24 mg/dl (7-20); CALCIUM 8.7 mg/dl (8.4-10.2); CARBON DIOXIDE 25 mmol/L (21-31); CHLORIDE 103 mmol/L (97-110); CREATININE 1.13 mg/dl (0.61-1.24); GLUCOSE 73 mg/dl (70-220); MAGNESIUM 1.5 mg/dl (1.7-2.5); PHOSPHORUS 3.1 mg/dl (2.5-4.9); POTASSIUM 3.7 mmol/L (3.5-5.1); SODIUM 143 mmol/L (135-144)
[2017-11-05] MEDS: ASPIRIN 81 MG TAB PO (09:14)
[2017-11-05] MEDS: MAGNESIUM OXIDE 400 MG TAB PO ×2 (09:14→20:23)
[2017-11-05] MEDS: HEPARIN 5,000 UNIT/0.5 ML VIAL SC ×2 (09:16→20:31)
[2017-11-05] MEDS: LEVOFLOXACIN 500 MG TAB PO (13:15)
[2017-11-05] MEDS: MAGNESIUM SULFATE 4 GM/100 ML 100 ML IVPB (14:27)
[2017-11-05] MEDS: morphine 2 MG INJ IV ×3 (14:27→23:10)
[2017-11-06] MEDS: DIPHENHYDRAMINE 25 MG CAP PO (00:09)
[2017-11-06] MEDS: LEVOFLOXACIN 500 MG TAB PO (06:25)
[2017-11-06] MEDS: FUROSEMIDE 20 MG INJ IV (06:26)
[2017-11-06] MEDS: MAGNESIUM OXIDE 400 MG TAB PO ×2 (08:27→20:33)
[2017-11-06] MEDS: ASPIRIN 81 MG TAB PO (08:27)
[2017-11-06] MEDS: morphine 2 MG INJ IV ×3 (08:28→20:34)
[2017-11-06] MEDS: HEPARIN 5,000 UNIT/0.5 ML VIAL SC ×2 (08:37→20:37)
[2017-11-06 10:35] LABS: ADD MAN DIFF? NO
[2017-11-06 10:38] LABS: WHITE BLOOD COUNT 4.6 10^3/ul (4.8-10.8)
[2017-11-06 10:38] LABS: BASOPHILS % 0.7 % (0.0-2.0); EOSINOPHILS # 0.1 10^3/ul (0.0-0.5); EOSINOPHILS % 2.6 % (0.0-7.0); HEMATOCRIT 29.2 % (42.0-52.0); HEMOGLOBIN 9.9 g/dl (14.0-18.0); LYMPHOCYTES # 0.9 10^3/ul (0.8-2.9); LYMPHOCYTES % 18.9 % (15.0-51.0); MEAN CORPUSCULAR HEMOGLOBIN 29.6 pg (29.0-33.0); MEAN CORPUSCULAR HGB CONC 33.9 g/dl (32.0-37.0); MEAN CORPUSCULAR VOLUME 87.2 fl (82.0-101.0); MEAN PLATELET VOLUME 11.4 fl (7.4-10.4); MONOCYTE # 0.6 10^3/ul (0.3-0.9); MONOCYTES % 12.1 % (0.0-11.0); NEUTROPHILS % 65.5 % (39.0-77.0); PLATELET COUNT 170 10^3/UL (140-415); RED BLOOD COUNT 3.35 10^6/ul (4.70-6.10); RED CELL DISTRIBUTION WIDTH 19.8 % (11.5-14.5)
[2017-11-06 11:21] LABS: ANION GAP 19 (8-16); BLOOD UREA NITROGEN 21 mg/dl (7-20); CALCIUM 8.5 mg/dl (8.4-10.2); CARBON DIOXIDE 26 mmol/L (21-31); CHLORIDE 99 mmol/L (97-110); CREATININE 1.13 mg/dl (0.61-1.24); GLUCOSE 108 mg/dl (70-220); MAGNESIUM 1.9 mg/dl (1.7-2.5); POTASSIUM 3.6 mmol/L (3.5-5.1); SODIUM 140 mmol/L (135-144)
[2017-11-06] MEDS: METOLAZONE 5 MG TAB PO (12:31)
[2017-11-06] MEDS: BUMETANIDE 1 MG INJ IV (17:49)
[2017-11-07] MEDS: morphine 2 MG INJ IV ×2 (01:00→06:43)
[2017-11-07] MEDS: BUMETANIDE 1 MG INJ IV (05:29)
[2017-11-07] MEDS: LEVOFLOXACIN 500 MG TAB PO (05:30)
[2017-11-07] MEDS: METOLAZONE 5 MG TAB PO (05:30)
[2017-11-07] MEDS: ASPIRIN 81 MG TAB PO (08:14)
[2017-11-07] MEDS: MAGNESIUM OXIDE 400 MG TAB PO (08:14)
[2017-11-07] MEDS: HEPARIN 5,000 UNIT/0.5 ML VIAL SC (08:16)
== END 2017-11-07 14:47 | disposition home or self-care (01) | DRG 291 ==
LOC: TEL 11-03 00:28 → E/R 17:57 → TEL 11-05 17:03
DX: I50.23 Acute on chronic systolic (congestive) heart failure (principal); J18.9 Pneumonia, unspecified organism; N17.9 Acute kidney failure, unspecified; J44.0 Chronic obstructive pulmonary disease with (acute) lower respiratory infection; I42.9 Cardiomyopathy, unspecified; L97.829 Non-pressure chronic ulcer of other part of left lower leg with unspecified severity; L97.819 Non-pressure chronic ulcer of other part of right lower leg with unspecified severity; I87.8 Other specified disorders of veins; Z72.0 Tobacco use; Z99.81 Dependence on supplemental oxygen
CPT/HCPCS: 36415; 71045; 80048; 80053; 80061; 82550; 82553; 83036; 83735; 83880; 84100; 84443; 84484; 85025; 93005; 93306; 96365; 96366; 96375; 96376; 97116; 97162; 97530; 99285-25; J1940

== ENCOUNTER 2017-11-15 20:33 | Emergency (ER) | payer MEDICARE, OTHER ==
[2017-11-16] MEDS: IPRATROPIUM (NEB) 0.5 MG/2.5 ML AMP INH (00:12)
[2017-11-16] MEDS: ALBUTEROL 0.083% (NEB) 2.5 MG/3 ML AMP INH (00:12)
[2017-11-16 00:19] LABS: AADO2 Arterial 45.1 mmHg (7.0-24.0); Allen Test ACCEPTAB; Arterial Base Excess -4.7 mmol/L (-3.0-3); Arterial Blood Gas Oxygen Sat 93.8 mmHG (95.0-98.0); Arterial COHb 0.8 % (0.0-3.0); Arterial Fraction of Oxyhgb 92.8 % (93.0-99.0); Arterial HCO3 17.3 mmol/L (22.0-26.0); Arterial MetHb 0.3 % (0.0-1.5); Arterial Total Hemglobin 9.4 g/dl (12.0-18.0); MODE ROOM AIR; Site Right Radial
[2017-11-16 02:27] LABS: ADD MAN DIFF? NO
[2017-11-16 02:31] LABS: BASOPHILS % 0.5 % (0.0-2.0); EOSINOPHILS # 0.2 10^3/ul (0.0-0.5); EOSINOPHILS % 2.8 % (0.0-7.0); HEMATOCRIT 23.8 % (42.0-52.0); HEMOGLOBIN 8.1 g/dl (14.0-18.0); LYMPHOCYTES # 1.3 10^3/ul (0.8-2.9); LYMPHOCYTES % 21.9 % (15.0-51.0); MEAN CORPUSCULAR HEMOGLOBIN 30.2 pg (29.0-33.0); MEAN CORPUSCULAR VOLUME 88.8 fl (82.0-101.0); MONOCYTE # 0.7 10^3/ul (0.3-0.9); MONOCYTES % 11.3 % (0.0-11.0); NEUTROPHIL # 3.8 10^3/ul (1.6-7.5); NEUTROPHILS % 63.2 % (39.0-77.0); PLATELET COUNT 154 10^3/UL (140-415); RED BLOOD COUNT 2.68 10^6/ul (4.70-6.10); RED CELL DISTRIBUTION WIDTH 20.9 % (11.5-14.5)
[2017-11-16 02:54] LABS: ALANINE AMINOTRANSFERASE 19 IU/L (13-69); ALBUMIN 3.6 g/dl (3.3-4.9); ALKALINE PHOSPHATASE 87 IU/L (42-121); ANION GAP 19 (8-16); ASPARTATE AMINO TRANSFERASE 35 IU/L (15-46); BILIRUBIN,INDIRECT 0.9 mg/dl (0-1.1); BILIRUBIN,TOTAL 0.9 mg/dl (0.2-1.3); BLOOD UREA NITROGEN 21 mg/dl (7-20); CALCIUM 8.5 mg/dl (8.4-10.2); CARBON DIOXIDE 20 mmol/L (21-31); CHLORIDE 102 mmol/L (97-110); CREATININE 0.98 mg/dl (0.61-1.24); GLUCOSE 76 mg/dl (70-220); POTASSIUM 3.1 mmol/L (3.5-5.1); SODIUM 138 mmol/L (135-144); TOTAL PROTEIN 7.2 g/dl (6.1-8.1)
[2017-11-16 03:05] LABS: B-TYPE NATRIURETIC PEPTIDE 7340 PG/ML (0-125); INR 1.25; PROTIME 15.9 Sec (11.9-14.9); PT RATIO 1.2; TROPONIN-I 0.057 ng/ml (0.00-0.12)
[2017-11-16 03:06] LABS: PARTIAL THROMBOPLASTIN TIME 36.3 Sec (25.0-35.0)
[2017-11-16] MEDS ORDERED: morphine 4 MG/ML VIAL (03:53)
[2017-11-16] MEDS: morphine 4 MG/ML VIAL IV (03:57)
== END 2017-11-16 04:07 | disposition home or self-care (01) ==
LOC: E/R 20:33
DX: R06.02 Shortness of breath (principal); I10 Essential (primary) hypertension; J44.9 Chronic obstructive pulmonary disease, unspecified; R40.2142 Coma scale, eyes open, spontaneous, at arrival to emergency department; R40.2252 Coma scale, best verbal response, oriented, at arrival to emergency department; R40.2362 Coma scale, best motor response, obeys commands, at arrival to emergency department; Z87.891 Personal history of nicotine dependence; Z79.82 Long term (current) use of aspirin
CPT/HCPCS: 36415; 36600; 71045; 80053; 82803; 83880; 84484; 85025; 85610; 85730; 93005; 94664; 96374; 99285-25

== ENCOUNTER 2018-01-13 08:07 | Inpatient (IN) | payer MEDICARE, OTHER ==
[2018-01-13] MEDS: IPRATROPIUM (NEB) 0.5 MG/2.5 ML AMP INH (08:48)
[2018-01-13] MEDS: ALBUTEROL 0.5% (NEB) 2.5 MG/0.5 ML AMP INH (08:48)
[2018-01-13] MEDS: METHYLPREDNISOLONE 125 MG INJ IV ×2 (09:14→17:22)
[2018-01-13] MEDS: SOD CHLORIDE 0.9% 2,330 ML IV (09:16)
[2018-01-13 09:23] LABS: ADD MAN DIFF? NO
[2018-01-13 09:29] LABS: WHITE BLOOD COUNT 4.4 10^3/ul (4.8-10.8)
[2018-01-13 09:29] LABS: ABNORMAL IP MESSAGE 1; BASOPHILS % 0.7 % (0.0-2.0); EOSINOPHILS % 0.7 % (0.0-7.0); HEMATOCRIT 31.6 % (42.0-52.0); HEMOGLOBIN 10.6 g/dl (14.0-18.0); LYMPHOCYTES # 1.3 10^3/ul (0.8-2.9); LYMPHOCYTES % 28.6 % (15.0-51.0); MEAN CORPUSCULAR HEMOGLOBIN 31.4 pg (29.0-33.0); MEAN CORPUSCULAR HGB CONC 33.5 g/dl (32.0-37.0); MEAN CORPUSCULAR VOLUME 93.5 fl (82.0-101.0); MONOCYTE # 0.5 10^3/ul (0.3-0.9); MONOCYTES % 11.8 % (0.0-11.0); NEUTROPHIL # 2.5 10^3/ul (1.6-7.5); NEUTROPHILS % 57.7 % (39.0-77.0); PLATELET COUNT 173 10^3/UL (140-415); POSITIVE DIFF @See below; RED BLOOD COUNT 3.38 10^6/ul (4.70-6.10); RED CELL DISTRIBUTION WIDTH 22.9 % (11.5-14.5)
[2018-01-13 09:43] LABS: ALANINE AMINOTRANSFERASE 14 IU/L (13-69); ALBUMIN 3.6 g/dl (3.3-4.9); ALBUMIN/GLOBULIN RATIO 0.97; ALKALINE PHOSPHATASE 91 IU/L (42-121); ANION GAP 17 (8-16); ASPARTATE AMINO TRANSFERASE 34 IU/L (15-46); BILIRUBIN,INDIRECT 1.4 mg/dl (0-1.1); BILIRUBIN,TOTAL 1.4 mg/dl (0.2-1.3); BLOOD UREA NITROGEN 15 mg/dl (7-20); CALCIUM 8.3 mg/dl (8.4-10.2); CARBON DIOXIDE 20 mmol/L (21-31); CHLORIDE 111 mmol/L (97-110); CREATININE 0.72 mg/dl (0.61-1.24); GLUCOSE 91 mg/dl (70-220); POTASSIUM 4.8 mmol/L (3.5-5.1); SODIUM 143 mmol/L (135-144); TOTAL PROTEIN 7.3 g/dl (6.1-8.1)
[2018-01-13 09:53] LABS: LACTIC ACID 2.1 mmol/L (0.5-2.0)
[2018-01-13 09:54] LABS: B-TYPE NATRIURETIC PEPTIDE 11500 PG/ML (0-125); TROPONIN-I 0.028 ng/ml (0.000-0.120)
[2018-01-13] MEDS: AZITHROMYCIN 500MG/NS (PMX) 250 ML IVPB ×2 (10:00→10:17)
[2018-01-13] MEDS: CEFTRIAXONE 1 GM/50 ML (PMX) 50 ML IVPB ×3 (10:00→12:30)
[2018-01-13 10:13] LABS: INR 1.23; PARTIAL THROMBOPLASTIN TIME 32.6 Sec (25.0-35.0); PROTIME 15.7 Sec (11.9-14.9); PT RATIO 1.2
[2018-01-13] MEDS: ASPIRIN 81 MG TAB PO (10:17)
[2018-01-13] MEDS: ONDANSETRON 4 MG INJ IV (10:22)
[2018-01-13] MEDS ORDERED: ACETAMINOPHEN 325 MG TAB PO (10:30)
[2018-01-13] MEDS ORDERED: ONDANSETRON 4 MG INJ IV (10:30)
[2018-01-13] MEDS ORDERED: DOCUSATE SODIUM 100 MG CAP PO (12:30)
[2018-01-13] MEDS ORDERED: hydrALAzine 20 MG INJ IV (12:30)
[2018-01-13] MEDS ORDERED: NACL 0.9% 3 ML SYG IV (12:30)
[2018-01-13] MEDS: morphine 2 MG INJ IV ×3 (13:18→21:53)
[2018-01-13 13:27] LABS: FREE T4 (FREE THYROXINE) 1.01 ng/dl (0.78-2.44)
[2018-01-13] MEDS: ALBUTEROL/IPRATROPIUM (NEB) 3 ML AMP HHN ×2 (13:58→21:16)
[2018-01-13 15:57] LABS: LACTIC ACID 3.8 mmol/L (0.5-2.0)
[2018-01-13] MEDS: FUROSEMIDE 40 MG TAB PO (17:21)
[2018-01-13 18:09] LABS: LACTIC ACID 4.1 mmol/L (0.5-2.0)
[2018-01-13 20:18] LABS: LACTIC ACID 5.4 mmol/L (0.5-2.0)
[2018-01-13] MEDS: QUETIAPINE 25 MG TAB PO (20:45)
[2018-01-13] MEDS: ATORVASTATIN 40 MG TAB PO (20:46)
[2018-01-13] MEDS: HEPARIN 5,000 UNIT/0.5 ML VIAL SC (20:49)
[2018-01-13] MEDS: NITROGLYCERIN (SL) 0.4 MG TAB SL ×2 (20:56→21:04)
[2018-01-13] MEDS: PREGABALIN 75 MG CAP PO (21:52)
[2018-01-14] MEDS: METHYLPREDNISOLONE 125 MG INJ IV ×5 (00:08→23:57)
[2018-01-14] MEDS: LORAZEPAM 2 MG INJ IV ×2 (00:34→15:01)
[2018-01-14 01:31] LABS: LACTIC ACID 5.1 mmol/L (0.5-2.0)
[2018-01-14] MEDS: SOD CHLORIDE 0.9% 500 ML IV ×2 (02:00→07:40)
[2018-01-14] MEDS: ALBUTEROL/IPRATROPIUM (NEB) 3 ML AMP HHN ×7 (02:41→20:40)
[2018-01-14] MEDS: morphine 2 MG INJ IV ×2 (03:33→12:04)
[2018-01-14] MEDS: FUROSEMIDE 40 MG TAB PO (05:40)
[2018-01-14] MEDS: ALBUMIN HUMAN 25% 100 ML IV (07:39)
[2018-01-14 08:19] LABS: ADD MAN DIFF? NO
[2018-01-14 08:24] LABS: WHITE BLOOD COUNT 3.8 10^3/ul (4.8-10.8)
[2018-01-14 08:24] LABS: ABNORMAL IP MESSAGE 1; HEMATOCRIT 32.4 % (42.0-52.0); HEMOGLOBIN 10.2 g/dl (14.0-18.0); LYMPHOCYTES # 0.3 10^3/ul (0.8-2.9); LYMPHOCYTES % 8.4 % (15.0-51.0); MEAN CORPUSCULAR HEMOGLOBIN 30.4 pg (29.0-33.0); MEAN CORPUSCULAR HGB CONC 31.5 g/dl (32.0-37.0); MEAN CORPUSCULAR VOLUME 96.4 fl (82.0-101.0); MEAN PLATELET VOLUME 11.1 fl (7.4-10.4); MONOCYTE # 0.1 10^3/ul (0.3-0.9); MONOCYTES % 3.4 % (0.0-11.0); NEUTROPHIL # 3.4 10^3/ul (1.6-7.5); NEUTROPHILS % 87.9 % (39.0-77.0); NUCLEATED RED BLOOD CELLS% 0.5 /100WBC (0.0-0.0); PLATELET COUNT 131 10^3/UL (140-415); POSITIVE DIFF @See below; RED BLOOD COUNT 3.36 10^6/ul (4.70-6.10); RED CELL DISTRIBUTION WIDTH 23.6 % (11.5-14.5)
[2018-01-14] MEDS: THIAMINE 100 MG TAB PO (08:32)
[2018-01-14] MEDS: ASPIRIN (EC) 81 MG TAB PO (08:32)
[2018-01-14] MEDS: HEPARIN 5,000 UNIT/0.5 ML VIAL SC ×2 (08:33→20:39)
[2018-01-14] MEDS: PREGABALIN 75 MG CAP PO ×2 (08:33→20:24)
[2018-01-14] MEDS: QUETIAPINE 25 MG TAB PO ×2 (08:33→20:24)
[2018-01-14 08:42] LABS: ANION GAP 20 (8-16); BLOOD UREA NITROGEN 22 mg/dl (7-20); CALCIUM 8.4 mg/dl (8.4-10.2); CARBON DIOXIDE 20 mmol/L (21-31); CHLORIDE 110 mmol/L (97-110); GLUCOSE 197 mg/dl (70-220); MAGNESIUM 1.5 mg/dl (1.7-2.5); PHOSPHORUS 4.8 mg/dl (2.5-4.9); SODIUM 144 mmol/L (135-144)
[2018-01-14 08:44] LABS: CHOLESTEROL 146 mg/dl (100-200)
[2018-01-14 08:44] LABS: CHOL/HDL RATIO 2.5 RATIO; HDL CHOLESTEROL 58 mg/dl (31-75); LDL CHOLESTEROL,CALCULATED 75 mg/dl; POTASSIUM 5.5 mmol/L (3.5-5.1); TRIGLYCERIDES 65 mg/dl (0-149)
[2018-01-14 08:46] LABS: LACTIC ACID 4.5 mmol/L (0.5-2.0)
[2018-01-14 08:53] LABS: HEMOGLOBIN A1C 5.2 % (0-5.9)
[2018-01-14] MEDS: AZITHROMYCIN 500MG/NS (PMX) 250 ML IVPB (11:21)
[2018-01-14] MEDS: SOD CHLORIDE 0.45% 1,000 ML IV (13:00)
[2018-01-14] MEDS: MAGNESIUM SULFATE 2 GM/50 ML 50 ML IVPB (13:01)
[2018-01-14] MEDS: NA POLYST SULFON 15 GM/60 ML BTL PO (13:01)
[2018-01-14] MEDS: CEFTRIAXONE 1 GM/50 ML (PMX) 50 ML IVPB (15:32)
[2018-01-14 16:04] LABS: LACTIC ACID 5.6 mmol/L (0.5-2.0)
[2018-01-14 18:19] LABS: LACTIC ACID 2.7 mmol/L (0.5-2.0)
[2018-01-14] MEDS: ATORVASTATIN 40 MG TAB PO (20:23)
[2018-01-15] MEDS: ALBUTEROL/IPRATROPIUM (NEB) 3 ML AMP HHN ×6 (01:00→20:37)
[2018-01-15] MEDS: METHYLPREDNISOLONE 125 MG INJ IV ×4 (05:07→23:17)
[2018-01-15 06:04] LABS: ADD MAN DIFF? NO
[2018-01-15 06:12] LABS: ABNORMAL IP MESSAGE 1; HEMATOCRIT 27.5 % (42.0-52.0); LYMPHOCYTES # 0.2 10^3/ul (0.8-2.9); LYMPHOCYTES % 2.6 % (15.0-51.0); MEAN CORPUSCULAR HGB CONC 32.7 g/dl (32.0-37.0); MEAN CORPUSCULAR VOLUME 94.8 fl (82.0-101.0); MEAN PLATELET VOLUME 11.3 fl (7.4-10.4); MONOCYTE # 0.1 10^3/ul (0.3-0.9); MONOCYTES % 1.9 % (0.0-11.0); NEUTROPHIL # 6.7 10^3/ul (1.6-7.5); NEUTROPHILS % 95.1 % (39.0-77.0); NUCLEATED RED BLOOD CELLS% 0.3 /100WBC (0.0-0.0); PLATELET COUNT 122 10^3/UL (140-415); POSITIVE DIFF @See below; RED CELL DISTRIBUTION WIDTH 23.6 % (11.5-14.5)
[2018-01-15 06:35] LABS: ANION GAP 16 (8-16); BLOOD UREA NITROGEN 27 mg/dl (7-20); CALCIUM 8.1 mg/dl (8.4-10.2); CARBON DIOXIDE 19 mmol/L (21-31); CHLORIDE 109 mmol/L (97-110); GLUCOSE 131 mg/dl (70-220); POTASSIUM 5.1 mmol/L (3.5-5.1); SODIUM 139 mmol/L (135-144)
[2018-01-15] MEDS: morphine 2 MG INJ IV ×3 (06:46→19:28)
[2018-01-15 06:57] LABS: LACTIC ACID 0.9 mmol/L (0.5-2.0)
[2018-01-15] MEDS: THIAMINE 100 MG TAB PO (09:28)
[2018-01-15] MEDS: ASPIRIN (EC) 81 MG TAB PO (09:28)
[2018-01-15] MEDS: AZITHROMYCIN 500MG/NS (PMX) 250 ML IVPB (09:29)
[2018-01-15] MEDS: QUETIAPINE 25 MG TAB PO ×2 (09:29→21:09)
[2018-01-15] MEDS: PREGABALIN 75 MG CAP PO ×2 (09:29→21:09)
[2018-01-15] MEDS: HEPARIN 5,000 UNIT/0.5 ML VIAL SC ×2 (09:44→21:11)
[2018-01-15] MEDS: CEFTRIAXONE 1 GM/50 ML (PMX) 50 ML IVPB (14:04)
[2018-01-15 15:29] LABS: LACTIC ACID 3.5 mmol/L (0.5-2.0)
[2018-01-15 19:46] LABS: LACTIC ACID 2.8 mmol/L (0.5-2.0)
[2018-01-15] MEDS: ATORVASTATIN 40 MG TAB PO (21:09)
[2018-01-15] MEDS: MAGNESIUM HYDROXIDE 30ML CUP PO (21:21)
[2018-01-15] MEDS: LORAZEPAM 2 MG INJ IV (23:31)
[2018-01-16] MEDS: ALBUTEROL/IPRATROPIUM (NEB) 3 ML AMP HHN ×5 (00:42→20:35)
[2018-01-16] MEDS: METHYLPREDNISOLONE 125 MG INJ IV ×2 (05:15→17:38)
[2018-01-16 06:18] LABS: ADD MAN DIFF? NO
[2018-01-16 06:24] LABS: ABNORMAL IP MESSAGE 1; HEMATOCRIT 27.4 % (42.0-52.0); HEMOGLOBIN 8.8 g/dl (14.0-18.0); LYMPHOCYTES # 0.2 10^3/ul (0.8-2.9); LYMPHOCYTES % 2.2 % (15.0-51.0); MEAN CORPUSCULAR HEMOGLOBIN 30.6 pg (29.0-33.0); MEAN CORPUSCULAR HGB CONC 32.1 g/dl (32.0-37.0); MEAN CORPUSCULAR VOLUME 95.1 fl (82.0-101.0); MONOCYTE # 0.1 10^3/ul (0.3-0.9); MONOCYTES % 1.4 % (0.0-11.0); NEUTROPHIL # 6.7 10^3/ul (1.6-7.5); NEUTROPHILS % 96.1 % (39.0-77.0); PLATELET COUNT 128 10^3/UL (140-415); POSITIVE DIFF @See below; RED BLOOD COUNT 2.88 10^6/ul (4.70-6.10); RED CELL DISTRIBUTION WIDTH 23.2 % (11.5-14.5)
[2018-01-16 06:24] LABS: WHITE BLOOD COUNT 6.9 10^3/ul (4.8-10.8)
[2018-01-16 07:38] LABS: ANION GAP 17 (8-16); BLOOD UREA NITROGEN 29 mg/dl (7-20); CALCIUM 8.2 mg/dl (8.4-10.2); CARBON DIOXIDE 21 mmol/L (21-31); CHLORIDE 109 mmol/L (97-110); CREATININE 1.27 mg/dl (0.61-1.24); GLUCOSE 160 mg/dl (70-220); POTASSIUM 4.9 mmol/L (3.5-5.1); SODIUM 142 mmol/L (135-144)
[2018-01-16] MEDS: QUETIAPINE 25 MG TAB PO ×2 (09:20→20:24)
[2018-01-16] MEDS: AZITHROMYCIN 500MG/NS (PMX) 250 ML IVPB (09:20)
[2018-01-16] MEDS: THIAMINE 100 MG TAB PO (09:20)
[2018-01-16] MEDS: PREGABALIN 75 MG CAP PO ×2 (09:20→20:23)
[2018-01-16] MEDS: HEPARIN 5,000 UNIT/0.5 ML VIAL SC ×2 (09:21→20:27)
[2018-01-16] MEDS: ASPIRIN (EC) 81 MG TAB PO (09:36)
[2018-01-16] MEDS: FUROSEMIDE 40 MG TAB PO ×2 (09:39→17:40)
[2018-01-16] MEDS: morphine 2 MG INJ IV ×3 (09:52→21:20)
[2018-01-16] MEDS: CEFTRIAXONE 1 GM/50 ML (PMX) 50 ML IVPB (13:34)
[2018-01-16] MEDS: ONDANSETRON 4 MG INJ IV (17:47)
[2018-01-16] MEDS: ATORVASTATIN 40 MG TAB PO (20:23)
[2018-01-16] MEDS: MAGNESIUM HYDROXIDE 30ML CUP PO (20:35)
[2018-01-16] MEDS: LORAZEPAM 2 MG INJ IV (22:48)
[2018-01-17] MEDS: METHYLPREDNISOLONE 125 MG INJ IV ×2 (00:28→05:40)
[2018-01-17] MEDS: ALBUTEROL/IPRATROPIUM (NEB) 3 ML AMP HHN ×4 (01:31→19:11)
[2018-01-17] MEDS: FUROSEMIDE 40 MG TAB PO (05:40)
[2018-01-17 06:46] LABS: ADD MAN DIFF? NO
[2018-01-17 06:51] LABS: ABNORMAL IP MESSAGE 1; HEMATOCRIT 28.1 % (42.0-52.0); HEMOGLOBIN 8.9 g/dl (14.0-18.0); LYMPHOCYTES # 0.1 10^3/ul (0.8-2.9); LYMPHOCYTES % 1.5 % (15.0-51.0); MEAN CORPUSCULAR HEMOGLOBIN 30.7 pg (29.0-33.0); MEAN CORPUSCULAR HGB CONC 31.7 g/dl (32.0-37.0); MEAN CORPUSCULAR VOLUME 96.9 fl (82.0-101.0); MEAN PLATELET VOLUME 11.6 fl (7.4-10.4); MONOCYTE # 0.2 10^3/ul (0.3-0.9); MONOCYTES % 2.5 % (0.0-11.0); NEUTROPHILS % 95.6 % (39.0-77.0); PLATELET COUNT 129 10^3/UL (140-415); POSITIVE DIFF @See below; RED CELL DISTRIBUTION WIDTH 23.2 % (11.5-14.5)
[2018-01-17 06:51] LABS: WHITE BLOOD COUNT 7.3 10^3/ul (4.8-10.8)
[2018-01-17 07:42] LABS: ANION GAP 19 (8-16); BLOOD UREA NITROGEN 35 mg/dl (7-20); CALCIUM 8.6 mg/dl (8.4-10.2); CARBON DIOXIDE 21 mmol/L (21-31); CHLORIDE 107 mmol/L (97-110); CREATININE 1.27 mg/dl (0.61-1.24); GLUCOSE 152 mg/dl (70-220); POTASSIUM 4.8 mmol/L (3.5-5.1); SODIUM 142 mmol/L (135-144)
[2018-01-17] MEDS: MAGNESIUM HYDROXIDE 30ML CUP PO (08:48)
[2018-01-17] MEDS: QUETIAPINE 25 MG TAB PO ×2 (08:49→21:28)
[2018-01-17] MEDS: THIAMINE 100 MG TAB PO (08:49)
[2018-01-17] MEDS: PREGABALIN 75 MG CAP PO ×2 (08:49→21:28)
[2018-01-17] MEDS: ASPIRIN (EC) 81 MG TAB PO (08:49)
[2018-01-17] MEDS: HEPARIN 5,000 UNIT/0.5 ML VIAL SC ×2 (08:59→21:34)
[2018-01-17] MEDS ORDERED: AZITHROMYCIN 250 MG TAB PO (09:30)
[2018-01-17] MEDS ORDERED: BISMUTH SUBSALICYLATE 120 ML BTL PO (11:00)
[2018-01-17] MEDS: predniSONE 20 MG TAB PO (13:07)
[2018-01-17] MEDS: METOPROLOL (XL) 25 MG TAB PO (13:08)
[2018-01-17] MEDS: NA PHOSPHATE/BIPHOS 133 ML ENEMA PR (15:47)
[2018-01-17] MEDS: morphine LIQ (10 MG/5 ML) CUP PO ×2 (18:33→22:45)
[2018-01-17] MEDS: ONDANSETRON 4 MG INJ IV (18:42)
[2018-01-17] MEDS: ATORVASTATIN 40 MG TAB PO (21:28)
[2018-01-17] MEDS: HYDROCODONE/APAP (5/325) TAB PO (23:59)
[2018-01-18] MEDS: ALBUTEROL/IPRATROPIUM (NEB) 3 ML AMP HHN ×4 (02:13→19:55)
[2018-01-18] MEDS: morphine LIQ (10 MG/5 ML) CUP PO ×3 (05:03→21:02)
[2018-01-18] MEDS ORDERED: LEVOFLOXACIN 750 MG TABLET PO (06:00)
[2018-01-18] MEDS: LEVOFLOXACIN 750 MG TABLET PO (06:12)
[2018-01-18] MEDS: PREGABALIN 75 MG CAP PO ×2 (08:35→21:01)
[2018-01-18] MEDS: MAGNESIUM HYDROXIDE 30ML CUP PO (08:35)
[2018-01-18] MEDS: predniSONE 20 MG TAB PO (08:35)
[2018-01-18] MEDS: THIAMINE 100 MG TAB PO (08:35)
[2018-01-18] MEDS: ASPIRIN (EC) 81 MG TAB PO (08:35)
[2018-01-18] MEDS: DOCUSATE SODIUM 100 MG CAP PO (08:35)
[2018-01-18] MEDS: QUETIAPINE 25 MG TAB PO ×2 (08:35→21:01)
[2018-01-18] MEDS: METOPROLOL (XL) 25 MG TAB PO (08:36)
[2018-01-18] MEDS: HEPARIN 5,000 UNIT/0.5 ML VIAL SC ×2 (08:42→21:09)
[2018-01-18 09:03] LABS: ADD MAN DIFF? NO
[2018-01-18 09:12] LABS: BASOPHILS % 0.1 % (0.0-2.0); HEMATOCRIT 32.7 % (42.0-52.0); HEMOGLOBIN 10.1 g/dl (14.0-18.0); LYMPHOCYTES % 2.2 % (15.0-51.0); MEAN CORPUSCULAR HEMOGLOBIN 30.3 pg (29.0-33.0); MEAN CORPUSCULAR HGB CONC 30.9 g/dl (32.0-37.0); MEAN CORPUSCULAR VOLUME 98.2 fl (82.0-101.0); MEAN PLATELET VOLUME 11.4 fl (7.4-10.4); MONOCYTES % 6.1 % (0.0-11.0); NEUTROPHIL # 9.8 10^3/ul (1.6-7.5); NEUTROPHILS % 91.2 % (39.0-77.0); NUCLEATED RED BLOOD CELLS% 0.2 /100WBC (0.0-0.0); PLATELET COUNT 142 10^3/UL (140-415); RED BLOOD COUNT 3.33 10^6/ul (4.70-6.10); RED CELL DISTRIBUTION WIDTH 23.1 % (11.5-14.5)
[2018-01-18 09:12] LABS: WHITE BLOOD COUNT 10.7 10^3/ul (4.8-10.8)
[2018-01-18 09:13] LABS: ABNORMAL IP MESSAGE 1; LYMPHOCYTES # 0.2 10^3/ul (0.8-2.9); MONOCYTE # 0.7 10^3/ul (0.3-0.9); POSITIVE DIFF @See below
[2018-01-18 09:43] LABS: LACTIC ACID 3.1 mmol/L (0.5-2.0)
[2018-01-18 10:10] LABS: ANION GAP 20 (8-16); BLOOD UREA NITROGEN 44 mg/dl (7-20); CALCIUM 8.6 mg/dl (8.4-10.2); CARBON DIOXIDE 20 mmol/L (21-31); CHLORIDE 106 mmol/L (97-110); CREATININE 1.41 mg/dl (0.61-1.24); GLUCOSE 113 mg/dl (70-220); POTASSIUM 5.8 mmol/L (3.5-5.1); SODIUM 140 mmol/L (135-144)
[2018-01-18] MEDS: FUROSEMIDE 20 MG INJ IV (14:19)
[2018-01-18 14:43] LABS: AADO2 Arterial 188.8 mmHg (7.0-24.0); Allen Test ACCEPTAB; Arterial Base Excess -6.2 mmol/L (-3.0-3); Arterial Blood Gas Oxygen Sat 95.3 mmHG (95.0-98.0); Arterial COHb 0.4 % (0.0-3.0); Arterial Fraction of Oxyhgb 94.6 % (93.0-99.0); Arterial HCO3 15.6 mmol/L (22.0-26.0); Arterial MetHb 0.3 % (0.0-1.5); Arterial Total Hemglobin 11.5 g/dl (12.0-18.0); Arterial pCO2 21.7 mmhg (35-45); MODE MASK - SIMPLE; Site Right Radial
[2018-01-18] MEDS: ATORVASTATIN 40 MG TAB PO (21:01)
[2018-01-18] MEDS: ONDANSETRON 4 MG INJ IV (21:02)
[2018-01-19] MEDS: ALBUTEROL/IPRATROPIUM (NEB) 3 ML AMP HHN ×4 (02:14→20:29)
[2018-01-19] MEDS: LEVOFLOXACIN 750 MG TABLET PO (06:39)
[2018-01-19 08:49] LABS: ADD MAN DIFF? NO
[2018-01-19 08:54] LABS: WHITE BLOOD COUNT 10.2 10^3/ul (4.8-10.8)
[2018-01-19 08:54] LABS: ABNORMAL IP MESSAGE 1; HEMOGLOBIN 10.1 g/dl (14.0-18.0); LYMPHOCYTES # 0.3 10^3/ul (0.8-2.9); LYMPHOCYTES % 2.7 % (15.0-51.0); MEAN CORPUSCULAR HEMOGLOBIN 30.3 pg (29.0-33.0); MEAN CORPUSCULAR HGB CONC 31.6 g/dl (32.0-37.0); MEAN CORPUSCULAR VOLUME 96.1 fl (82.0-101.0); MEAN PLATELET VOLUME 12.5 fl (7.4-10.4); MONOCYTES % 9.4 % (0.0-11.0); NEUTROPHIL # 8.9 10^3/ul (1.6-7.5); NEUTROPHILS % 87.4 % (39.0-77.0); NUCLEATED RED BLOOD CELLS # 0.1 10^3/ul (0.0-0.0); NUCLEATED RED BLOOD CELLS% 0.5 /100WBC (0.0-0.0); PLATELET COUNT 127 10^3/UL (140-415); POSITIVE DIFF @See below; RED BLOOD COUNT 3.33 10^6/ul (4.70-6.10); RED CELL DISTRIBUTION WIDTH 22.6 % (11.5-14.5)
[2018-01-19] MEDS: METOPROLOL (XL) 25 MG TAB PO (09:00)
[2018-01-19] MEDS: HEPARIN 5,000 UNIT/0.5 ML VIAL SC ×3 (09:00→20:55)
[2018-01-19 09:14] LABS: ANION GAP 21 (8-16); BLOOD UREA NITROGEN 59 mg/dl (7-20); CALCIUM 8.7 mg/dl (8.4-10.2); CARBON DIOXIDE 21 mmol/L (21-31); CHLORIDE 104 mmol/L (97-110); CREATININE 1.84 mg/dl (0.61-1.24); GLUCOSE 97 mg/dl (70-220); SODIUM 139 mmol/L (135-144)
[2018-01-19 09:17] LABS: POTASSIUM 6.6 mmol/L (3.5-5.1)
[2018-01-19] MEDS: PREGABALIN 75 MG CAP PO ×2 (09:41→20:41)
[2018-01-19] MEDS: ASPIRIN (EC) 81 MG TAB PO (09:41)
[2018-01-19] MEDS: QUETIAPINE 25 MG TAB PO ×2 (09:41→20:42)
[2018-01-19] MEDS: predniSONE 20 MG TAB PO (09:42)
[2018-01-19] MEDS: THIAMINE 100 MG TAB PO (09:42)
[2018-01-19] MEDS: morphine LIQ (10 MG/5 ML) CUP PO (09:46)
[2018-01-19] MEDS: ALBUTEROL 0.5% (NEB) 2.5 MG/0.5 ML AMP INH (10:27)
[2018-01-19] MEDS: CA CHLORIDE 10% 10 ML SYRINGE IV (10:36)
[2018-01-19] MEDS: NA BICARBONATE 8.4% 50 ML SYG IV (10:36)
[2018-01-19] MEDS: INSULIN REGULAR, HUMAN 100 UNIT/1 ML 3ML VIAL IVP (10:38)
[2018-01-19] MEDS: SOD CHLORIDE 0.9% 500 ML IV (10:39)
[2018-01-19] MEDS: DEXTROSE 50% 50 ML SYRINGE IV (10:39)
[2018-01-19 14:35] LABS: ADD UMIC YES; UR ASCORBIC ACID NEGATIVE (NEGATIVE); UR BILIRUBIN (Dip) NEGATIVE (NEGATIVE); UR BLOOD (Dip) NEGATIVE (NEGATIVE); UR CLARITY CLEAR (CLEAR); UR COLOR YELLOW (YELLOW); UR GLUCOSE (Dip) 2+ mg/dL (NEGATIVE); UR HYALINE CAST FEW /HPF (NONE SEEN); UR KETONES (Dip) NEGATIVE (NEGATIVE); UR LEUKOCYTE ESTERASE (Dip) NEGATIVE Leu/ul (NEGATIVE); UR NITRITE (Dip) NEGATIVE (NEGATIVE); UR RBC 0 /HPF (0-5); UR SPECIFIC GRAVITY (Dip) 1.016 (1.003-1.030); UR TOTAL PROTEIN (Dip) 1+ mg/dl (NEGATIVE); UR UROBILINOGEN (Dip) NEGATIVE (NEGATIVE); UR WBC 0 /HPF (0-5)
[2018-01-19 14:38] LABS: ANION GAP 16 (8-16); BLOOD UREA NITROGEN 62 mg/dl (7-20); CARBON DIOXIDE 26 mmol/L (21-31); CHLORIDE 105 mmol/L (97-110); CREATININE 1.82 mg/dl (0.61-1.24); GLUCOSE 125 mg/dl (70-220); POTASSIUM 5.9 mmol/L (3.5-5.1); SODIUM 141 mmol/L (135-144)
[2018-01-19 14:44] LABS: SODIUM,URINE RANDOM 62 mmol/L (30-90)
[2018-01-19 14:44] LABS: CREATININE,URINE RANDOM 62.98 mg/dl (20-370)
[2018-01-19] MEDS: ONDANSETRON 4 MG INJ IV (17:46)
[2018-01-19] MEDS: HYDROCODONE/APAP (5/325) TAB PO (17:46)
[2018-01-19] MEDS: ATORVASTATIN 40 MG TAB PO (20:41)
[2018-01-20] MEDS: ALBUTEROL/IPRATROPIUM (NEB) 3 ML AMP HHN ×4 (01:13→20:00)
[2018-01-20] MEDS: morphine LIQ (10 MG/5 ML) CUP PO ×3 (01:28→23:35)
[2018-01-20] MEDS: ONDANSETRON 4 MG INJ IV (01:28)
[2018-01-20] MEDS: LEVOFLOXACIN 750 MG TABLET PO (06:36)
[2018-01-20] MEDS: HYDROCODONE/APAP (5/325) TAB PO (08:55)
[2018-01-20] MEDS: ASPIRIN (EC) 81 MG TAB PO (08:55)
[2018-01-20] MEDS: QUETIAPINE 25 MG TAB PO ×2 (08:55→21:24)
[2018-01-20] MEDS: PREGABALIN 75 MG CAP PO ×2 (08:55→21:23)
[2018-01-20] MEDS: THIAMINE 100 MG TAB PO (08:55)
[2018-01-20] MEDS: predniSONE 20 MG TAB PO (08:55)
[2018-01-20] MEDS: METOPROLOL (XL) 25 MG TAB PO (08:59)
[2018-01-20 09:04] LABS: ADD MAN DIFF? NO
[2018-01-20] MEDS: HEPARIN 5,000 UNIT/0.5 ML VIAL SC ×2 (09:09→21:25)
[2018-01-20 09:10] LABS: ABNORMAL IP MESSAGE 1; HEMOGLOBIN 9.5 g/dl (14.0-18.0); LYMPHOCYTES # 0.2 10^3/ul (0.8-2.9); LYMPHOCYTES % 2.9 % (15.0-51.0); MEAN CORPUSCULAR HEMOGLOBIN 30.4 pg (29.0-33.0); MEAN CORPUSCULAR HGB CONC 31.7 g/dl (32.0-37.0); MEAN CORPUSCULAR VOLUME 95.8 fl (82.0-101.0); MEAN PLATELET VOLUME 12.2 fl (7.4-10.4); MONOCYTE # 0.7 10^3/ul (0.3-0.9); MONOCYTES % 11.3 % (0.0-11.0); NEUTROPHILS % 85.6 % (39.0-77.0); NUCLEATED RED BLOOD CELLS # 0.1 10^3/ul (0.0-0.0); PLATELET COUNT 117 10^3/UL (140-415); POSITIVE DIFF @See below; RED BLOOD COUNT 3.13 10^6/ul (4.70-6.10); RED CELL DISTRIBUTION WIDTH 22.3 % (11.5-14.5)
[2018-01-20 09:10] LABS: WHITE BLOOD COUNT 5.9 10^3/ul (4.8-10.8)
[2018-01-20 09:28] LABS: MAGNESIUM 2.6 mg/dl (1.7-2.5)
[2018-01-20 09:28] LABS: PHOSPHORUS 4.1 mg/dl (2.5-4.9)
[2018-01-20 09:32] LABS: ANION GAP 18 (8-16); BLOOD UREA NITROGEN 59 mg/dl (7-20); CALCIUM 8.5 mg/dl (8.4-10.2); CARBON DIOXIDE 24 mmol/L (21-31); CHLORIDE 105 mmol/L (97-110); CREATININE 1.65 mg/dl (0.61-1.24); GLUCOSE 111 mg/dl (70-220); SODIUM 141 mmol/L (135-144)
[2018-01-20] MEDS ORDERED: ALBUMIN HUMAN 25% 100 ML IV (11:00)
[2018-01-20] MEDS: NA POLYST SULFON 15 GM/60 ML BTL PO (11:00)
[2018-01-20] MEDS: DEXTROSE 50% 50 ML SYRINGE IV (11:18)
[2018-01-20] MEDS: INSULIN REGULAR, HUMAN 100 UNIT/1 ML 3ML VIAL IVP (11:18)
[2018-01-20] MEDS: FUROSEMIDE 20 MG INJ IV ×2 (11:19→21:23)
[2018-01-20] MEDS: ALBUTEROL 0.5% (NEB) 2.5 MG/0.5 ML AMP INH (12:48)
[2018-01-20 19:17] LABS: ANION GAP 18 (8-16); BLOOD UREA NITROGEN 59 mg/dl (7-20); CALCIUM 8.7 mg/dl (8.4-10.2); CARBON DIOXIDE 26 mmol/L (21-31); CHLORIDE 103 mmol/L (97-110); CREATININE 1.63 mg/dl (0.61-1.24); GLUCOSE 156 mg/dl (70-220); POTASSIUM 5.5 mmol/L (3.5-5.1); SODIUM 141 mmol/L (135-144)
[2018-01-20] MEDS: ATORVASTATIN 40 MG TAB PO (21:23)
[2018-01-21] MEDS: MAGNESIUM HYDROXIDE 30ML CUP PO (01:33)
[2018-01-21] MEDS: ALBUTEROL/IPRATROPIUM (NEB) 3 ML AMP HHN ×4 (02:00→20:30)
[2018-01-21] MEDS: LEVOFLOXACIN 750 MG TABLET PO (05:22)
[2018-01-21 06:38] LABS: ADD MAN DIFF? NO
[2018-01-21 06:53] LABS: WHITE BLOOD COUNT 7.8 10^3/ul (4.8-10.8)
[2018-01-21 06:53] LABS: ABNORMAL IP MESSAGE 1; HEMATOCRIT 28.6 % (42.0-52.0); HEMOGLOBIN 9.2 g/dl (14.0-18.0); LYMPHOCYTES # 0.2 10^3/ul (0.8-2.9); LYMPHOCYTES % 2.8 % (15.0-51.0); MEAN CORPUSCULAR HEMOGLOBIN 30.6 pg (29.0-33.0); MEAN CORPUSCULAR HGB CONC 32.2 g/dl (32.0-37.0); MEAN PLATELET VOLUME 12.2 fl (7.4-10.4); MONOCYTES % 12.5 % (0.0-11.0); NEUTROPHIL # 6.6 10^3/ul (1.6-7.5); NEUTROPHILS % 84.3 % (39.0-77.0); NUCLEATED RED BLOOD CELLS% 0.5 /100WBC (0.0-0.0); PLATELET COUNT 126 10^3/UL (140-415); POSITIVE DIFF @See below; RED BLOOD COUNT 3.01 10^6/ul (4.70-6.10); RED CELL DISTRIBUTION WIDTH 22.3 % (11.5-14.5)
[2018-01-21 07:12] LABS: ANION GAP 18 (8-16); BLOOD UREA NITROGEN 58 mg/dl (7-20); CALCIUM 8.6 mg/dl (8.4-10.2); CARBON DIOXIDE 32 mmol/L (21-31); CHLORIDE 102 mmol/L (97-110); CREATININE 1.47 mg/dl (0.61-1.24); GLUCOSE 88 mg/dl (70-220); MAGNESIUM 2.3 mg/dl (1.7-2.5); PHOSPHORUS 3.6 mg/dl (2.5-4.9); SODIUM 147 mmol/L (135-144)
[2018-01-21] MEDS: predniSONE 20 MG TAB PO (08:51)
[2018-01-21] MEDS: METOPROLOL (XL) 25 MG TAB PO (08:52)
[2018-01-21] MEDS: PREGABALIN 75 MG CAP PO ×2 (08:52→21:58)
[2018-01-21] MEDS: ASPIRIN (EC) 81 MG TAB PO (08:52)
[2018-01-21] MEDS: QUETIAPINE 25 MG TAB PO ×2 (08:53→21:58)
[2018-01-21] MEDS: morphine LIQ (10 MG/5 ML) CUP PO ×3 (08:55→20:07)
[2018-01-21] MEDS: HEPARIN 5,000 UNIT/0.5 ML VIAL SC ×2 (09:02→21:59)
[2018-01-21] MEDS ORDERED: FUROSEMIDE 20 MG INJ IV (10:00)
[2018-01-21] MEDS: ONDANSETRON 4 MG INJ IV (10:17)
[2018-01-21] MEDS: FUROSEMIDE 40 MG INJ IV ×2 (10:17→17:33)
[2018-01-21] MEDS: THIAMINE 100 MG TAB PO (10:17)
[2018-01-21] MEDS: METOLAZONE 2.5 MG TAB PO (10:17)
[2018-01-21] MEDS: LOPERAMIDE 2 MG CAP PO (15:15)
[2018-01-21 15:47] LABS: CREATININE, RANDOM URINE 70 mg/dL (20-370); MICROALBUMIN 20.2 mg/dL; MICROALBUMIN/CREATININE RATIO 289 (<30)
[2018-01-21 17:20] LABS: ANION GAP 16 (8-16); BLOOD UREA NITROGEN 55 mg/dl (7-20); CALCIUM 8.5 mg/dl (8.4-10.2); CARBON DIOXIDE 29 mmol/L (21-31); CHLORIDE 102 mmol/L (97-110); CREATININE 1.32 mg/dl (0.61-1.24); GLUCOSE 154 mg/dl (70-220); POTASSIUM 5.2 mmol/L (3.5-5.1); SODIUM 142 mmol/L (135-144)
[2018-01-21] MEDS: ATORVASTATIN 40 MG TAB PO (21:58)
[2018-01-22] MEDS: ALBUTEROL/IPRATROPIUM (NEB) 3 ML AMP HHN ×4 (00:53→21:03)
[2018-01-22] MEDS: ONDANSETRON 4 MG INJ IV ×2 (01:27→21:18)
[2018-01-22] MEDS: morphine LIQ (10 MG/5 ML) CUP PO ×4 (01:27→23:54)
[2018-01-22] MEDS: traZODone 50 MG TAB PO (03:24)
[2018-01-22] MEDS: FUROSEMIDE 40 MG INJ IV ×2 (06:10→17:43)
[2018-01-22] MEDS: LEVOFLOXACIN 750 MG TABLET PO (06:10)
[2018-01-22 06:34] LABS: ADD MAN DIFF? NO
[2018-01-22 06:40] LABS: ABNORMAL IP MESSAGE 1; EOSINOPHILS % 0.1 % (0.0-7.0); HEMATOCRIT 27.6 % (42.0-52.0); LYMPHOCYTES # 0.4 10^3/ul (0.8-2.9); MEAN CORPUSCULAR HEMOGLOBIN 30.6 pg (29.0-33.0); MEAN CORPUSCULAR HGB CONC 32.6 g/dl (32.0-37.0); MEAN CORPUSCULAR VOLUME 93.9 fl (82.0-101.0); MEAN PLATELET VOLUME 12.3 fl (7.4-10.4); MONOCYTES % 13.8 % (0.0-11.0); NEUTROPHIL # 5.9 10^3/ul (1.6-7.5); NEUTROPHILS % 80.7 % (39.0-77.0); NUCLEATED RED BLOOD CELLS% 0.3 /100WBC (0.0-0.0); PLATELET COUNT 130 10^3/UL (140-415); POSITIVE DIFF @See below; RED BLOOD COUNT 2.94 10^6/ul (4.70-6.10)
[2018-01-22 06:40] LABS: WHITE BLOOD COUNT 7.3 10^3/ul (4.8-10.8)
[2018-01-22 07:02] LABS: ANION GAP 18 (8-16); BLOOD UREA NITROGEN 57 mg/dl (7-20); CALCIUM 8.6 mg/dl (8.4-10.2); CARBON DIOXIDE 32 mmol/L (21-31); CHLORIDE 97 mmol/L (97-110); CREATININE 1.38 mg/dl (0.61-1.24); GLUCOSE 95 mg/dl (70-220); PHOSPHORUS 2.8 mg/dl (2.5-4.9); POTASSIUM 4.6 mmol/L (3.5-5.1); SODIUM 142 mmol/L (135-144)
[2018-01-22] MEDS: PREGABALIN 75 MG CAP PO ×2 (09:23→21:17)
[2018-01-22] MEDS: ASPIRIN (EC) 81 MG TAB PO (09:23)
[2018-01-22] MEDS: METOPROLOL (XL) 25 MG TAB PO (09:24)
[2018-01-22] MEDS: predniSONE 20 MG TAB PO (09:24)
[2018-01-22] MEDS: QUETIAPINE 25 MG TAB PO ×2 (09:24→21:17)
[2018-01-22] MEDS: THIAMINE 100 MG TAB PO (09:24)
[2018-01-22] MEDS: HEPARIN 5,000 UNIT/0.5 ML VIAL SC ×2 (09:25→21:16)
[2018-01-22] MEDS: ATORVASTATIN 40 MG TAB PO (21:17)
[2018-01-22] MEDS: MAGNESIUM HYDROXIDE 30ML CUP PO (21:17)
[2018-01-23] MEDS: ALBUTEROL/IPRATROPIUM (NEB) 3 ML AMP HHN ×4 (01:42→20:00)
[2018-01-23] MEDS: FUROSEMIDE 40 MG INJ IV ×2 (05:51→17:55)
[2018-01-23] MEDS: LEVOFLOXACIN 750 MG TABLET PO (05:52)
[2018-01-23] MEDS: ONDANSETRON 4 MG INJ IV ×2 (06:14→12:30)
[2018-01-23 06:55] LABS: ANION GAP 13 (8-16); BLOOD UREA NITROGEN 59 mg/dl (7-20); CALCIUM 8.3 mg/dl (8.4-10.2); CARBON DIOXIDE 38 mmol/L (21-31); CHLORIDE 93 mmol/L (97-110); CREATININE 1.17 mg/dl (0.61-1.24); GLUCOSE 140 mg/dl (70-220); MAGNESIUM 1.8 mg/dl (1.7-2.5); PHOSPHORUS 2.4 mg/dl (2.5-4.9); POTASSIUM 3.7 mmol/L (3.5-5.1); SODIUM 140 mmol/L (135-144)
[2018-01-23] MEDS: NEUTRA-PHOS 250 MG PACKET PO (08:50)
[2018-01-23] MEDS: PREGABALIN 75 MG CAP PO ×2 (08:50→20:49)
[2018-01-23] MEDS: THIAMINE 100 MG TAB PO (08:50)
[2018-01-23] MEDS: QUETIAPINE 25 MG TAB PO ×2 (08:50→20:49)
[2018-01-23] MEDS: MAGNESIUM HYDROXIDE 30ML CUP PO (08:50)
[2018-01-23] MEDS: predniSONE 20 MG TAB PO (08:51)
[2018-01-23] MEDS: HEPARIN 5,000 UNIT/0.5 ML VIAL SC ×2 (08:52→20:53)
[2018-01-23] MEDS: ASPIRIN (EC) 81 MG TAB PO (08:57)
[2018-01-23] MEDS: METOPROLOL (XL) 25 MG TAB PO (09:00)
[2018-01-23] MEDS: morphine LIQ (10 MG/5 ML) CUP PO (12:35)
[2018-01-23] MEDS: ATORVASTATIN 40 MG TAB PO (20:49)
[2018-01-23] MEDS: BISMUTH SUBSALICYLATE 240 ML BTL PO (21:03)
[2018-01-24] MEDS: ALBUTEROL/IPRATROPIUM (NEB) 3 ML AMP HHN ×4 (01:12→20:42)
[2018-01-24] MEDS: ONDANSETRON 4 MG INJ IV ×3 (02:37→15:07)
[2018-01-24] MEDS: HYDROCODONE/APAP (5/325) TAB PO ×2 (02:37→18:29)
[2018-01-24] MEDS: LEVOFLOXACIN 750 MG TABLET PO (05:19)
[2018-01-24] MEDS: FUROSEMIDE 40 MG INJ IV (05:21)
[2018-01-24 07:16] LABS: ANION GAP 12 (8-16); BLOOD UREA NITROGEN 57 mg/dl (7-20); CALCIUM 8.6 mg/dl (8.4-10.2); CARBON DIOXIDE 37 mmol/L (21-31); CHLORIDE 94 mmol/L (97-110); CREATININE 1.13 mg/dl (0.61-1.24); GLUCOSE 137 mg/dl (70-220); MAGNESIUM 1.7 mg/dl (1.7-2.5); PHOSPHORUS 1.9 mg/dl (2.5-4.9); POTASSIUM 4.1 mmol/L (3.5-5.1); SODIUM 139 mmol/L (135-144)
[2018-01-24] MEDS: METOPROLOL (XL) 25 MG TAB PO (09:00)
[2018-01-24] MEDS: PREGABALIN 75 MG CAP PO ×2 (09:01→22:45)
[2018-01-24] MEDS: predniSONE 20 MG TAB PO (09:01)
[2018-01-24] MEDS: THIAMINE 100 MG TAB PO (09:01)
[2018-01-24] MEDS: NEUTRA-PHOS 250 MG PACKET PO (09:02)
[2018-01-24] MEDS: QUETIAPINE 25 MG TAB PO ×2 (09:02→22:44)
[2018-01-24] MEDS: ASPIRIN (EC) 81 MG TAB PO (09:04)
[2018-01-24] MEDS: HEPARIN 5,000 UNIT/0.5 ML VIAL SC ×2 (09:05→22:46)
[2018-01-24] MEDS: ACETAZOLAMIDE 500 MG INJ IV (17:28)
[2018-01-24] MEDS: BISMUTH SUBSALICYLATE 240 ML BTL PO ×2 (18:25→22:43)
[2018-01-24] MEDS: ATORVASTATIN 40 MG TAB PO (22:45)
[2018-01-25] MEDS: ALBUTEROL/IPRATROPIUM (NEB) 3 ML AMP HHN ×4 (02:36→20:04)
[2018-01-25] MEDS: ACETAZOLAMIDE 500 MG INJ IV ×2 (05:49→18:26)
[2018-01-25 06:12] LABS: ADD MAN DIFF? NO
[2018-01-25 06:19] LABS: BASOPHILS % 0.1 % (0.0-2.0); HEMATOCRIT 28.9 % (42.0-52.0); HEMOGLOBIN 9.7 g/dl (14.0-18.0); LYMPHOCYTES # 0.7 10^3/ul (0.8-2.9); LYMPHOCYTES % 4.6 % (15.0-51.0); MEAN CORPUSCULAR HEMOGLOBIN 30.9 pg (29.0-33.0); MEAN CORPUSCULAR HGB CONC 33.6 g/dl (32.0-37.0); MEAN PLATELET VOLUME 12.5 fl (7.4-10.4); MONOCYTE # 1.2 10^3/ul (0.3-0.9); NEUTROPHIL # 12.5 10^3/ul (1.6-7.5); NEUTROPHILS % 86.5 % (39.0-77.0); PLATELET COUNT 136 10^3/UL (140-415); RED BLOOD COUNT 3.14 10^6/ul (4.70-6.10); RED CELL DISTRIBUTION WIDTH 21.7 % (11.5-14.5)
[2018-01-25 06:19] LABS: WHITE BLOOD COUNT 14.5 10^3/ul (4.8-10.8)
[2018-01-25 06:43] LABS: ANION GAP 12 (8-16); BLOOD UREA NITROGEN 47 mg/dl (7-20); CALCIUM 8.3 mg/dl (8.4-10.2); CARBON DIOXIDE 33 mmol/L (21-31); CHLORIDE 99 mmol/L (97-110); CREATININE 1.14 mg/dl (0.61-1.24); GLUCOSE 90 mg/dl (70-220); MAGNESIUM 1.6 mg/dl (1.7-2.5); PHOSPHORUS 2.5 mg/dl (2.5-4.9); POTASSIUM 3.8 mmol/L (3.5-5.1); SODIUM 140 mmol/L (135-144)
[2018-01-25] MEDS: THIAMINE 100 MG TAB PO (09:52)
[2018-01-25] MEDS: HEPARIN 5,000 UNIT/0.5 ML VIAL SC ×2 (09:52→21:08)
[2018-01-25] MEDS: PREGABALIN 75 MG CAP PO ×2 (09:53→21:06)
[2018-01-25] MEDS: QUETIAPINE 25 MG TAB PO ×2 (09:53→21:05)
[2018-01-25] MEDS: ASPIRIN (EC) 81 MG TAB PO (09:53)
[2018-01-25] MEDS: METOPROLOL (XL) 25 MG TAB PO (09:53)
[2018-01-25] MEDS: MAGNESIUM HYDROXIDE 30ML CUP PO ×2 (11:10→22:11)
[2018-01-25] MEDS: ONDANSETRON 4 MG INJ IV ×2 (11:10→22:11)
[2018-01-25] MEDS: DOCUSATE SODIUM 100 MG CAP PO (17:19)
[2018-01-25] MEDS: BISMUTH SUBSALICYLATE 240 ML BTL PO (17:19)
[2018-01-25] MEDS: ATORVASTATIN 40 MG TAB PO (21:05)
[2018-01-25] MEDS: HYDROCODONE/APAP (5/325) TAB PO (21:05)
[2018-01-25] MEDS: traZODone 50 MG TAB PO (22:11)
[2018-01-26] MEDS: ALBUTEROL/IPRATROPIUM (NEB) 3 ML AMP HHN ×4 (01:00→19:35)
[2018-01-26] MEDS: ACETAZOLAMIDE 500 MG INJ IV (05:50)
[2018-01-26] MEDS: QUETIAPINE 25 MG TAB PO ×2 (08:39→21:06)
[2018-01-26] MEDS: PREGABALIN 75 MG CAP PO ×2 (08:39→20:58)
[2018-01-26] MEDS: ASPIRIN (EC) 81 MG TAB PO (08:39)
[2018-01-26] MEDS: THIAMINE 100 MG TAB PO (08:39)
[2018-01-26] MEDS: HEPARIN 5,000 UNIT/0.5 ML VIAL SC ×2 (08:40→21:10)
[2018-01-26] MEDS: MAGNESIUM HYDROXIDE 30ML CUP PO (08:57)
[2018-01-26] MEDS: METOPROLOL (XL) 25 MG TAB PO (09:00)
[2018-01-26] MEDS: BUMETANIDE 1 MG TAB PO ×2 (11:08→18:12)
[2018-01-26 15:53] LABS: ADD MAN DIFF? NO
[2018-01-26 15:56] LABS: ABNORMAL IP MESSAGE 1; BASOPHILS % 0.1 % (0.0-2.0); EOSINOPHILS # 0.1 10^3/ul (0.0-0.5); EOSINOPHILS % 0.8 % (0.0-7.0); HEMATOCRIT 29.1 % (42.0-52.0); HEMOGLOBIN 9.2 g/dl (14.0-18.0); LYMPHOCYTES # 1.1 10^3/ul (0.8-2.9); MEAN CORPUSCULAR HEMOGLOBIN 30.4 pg (29.0-33.0); MEAN CORPUSCULAR HGB CONC 31.6 g/dl (32.0-37.0); MEAN PLATELET VOLUME 11.3 fl (7.4-10.4); MONOCYTE # 1.2 10^3/ul (0.3-0.9); NEUTROPHIL # 9.7 10^3/ul (1.6-7.5); NEUTROPHILS % 79.3 % (39.0-77.0); PLATELET COUNT 110 10^3/UL (140-415); POSITIVE DIFF @See below; RED BLOOD COUNT 3.03 10^6/ul (4.70-6.10); RED CELL DISTRIBUTION WIDTH 22.1 % (11.5-14.5)
[2018-01-26 15:56] LABS: WHITE BLOOD COUNT 12.2 10^3/ul (4.8-10.8)
[2018-01-26 16:19] LABS: ANION GAP 8 (8-16); BLOOD UREA NITROGEN 35 mg/dl (7-20); CALCIUM 8.3 mg/dl (8.4-10.2); CARBON DIOXIDE 29 mmol/L (21-31); CHLORIDE 107 mmol/L (97-110); CREATININE 1.16 mg/dl (0.61-1.24); GLUCOSE 104 mg/dl (70-220); MAGNESIUM 1.9 mg/dl (1.7-2.5); PHOSPHORUS 2.6 mg/dl (2.5-4.9); POTASSIUM 3.8 mmol/L (3.5-5.1); SODIUM 140 mmol/L (135-144)
[2018-01-26] MEDS: MAGNESIUM SULFATE 1 GM/D5W 100 ML IVPB (18:00)
[2018-01-26] MEDS: ONDANSETRON 4 MG INJ IV (19:57)
[2018-01-26] MEDS: ATORVASTATIN 40 MG TAB PO (20:58)
[2018-01-27] MEDS: ALBUTEROL/IPRATROPIUM (NEB) 3 ML AMP HHN ×4 (01:32→19:51)
[2018-01-27] MEDS: ONDANSETRON 4 MG INJ IV ×2 (02:05→14:56)
[2018-01-27] MEDS: BISMUTH SUBSALICYLATE 240 ML BTL PO (02:06)
[2018-01-27] MEDS: BUMETANIDE 1 MG TAB PO ×2 (05:06→17:33)
[2018-01-27 06:37] LABS: ANION GAP 13 (8-16); BLOOD UREA NITROGEN 29 mg/dl (7-20); CALCIUM 8.5 mg/dl (8.4-10.2); CARBON DIOXIDE 23 mmol/L (21-31); CHLORIDE 110 mmol/L (97-110); CREATININE 1.06 mg/dl (0.61-1.24); GLUCOSE 88 mg/dl (70-220); MAGNESIUM 2.1 mg/dl (1.7-2.5); PHOSPHORUS 2.7 mg/dl (2.5-4.9); POTASSIUM 4.3 mmol/L (3.5-5.1); SODIUM 142 mmol/L (135-144)
[2018-01-27] MEDS: METOPROLOL (XL) 25 MG TAB PO (09:00)
[2018-01-27] MEDS: PREGABALIN 75 MG CAP PO ×2 (09:02→20:38)
[2018-01-27] MEDS: THIAMINE 100 MG TAB PO (09:02)
[2018-01-27] MEDS: HEPARIN 5,000 UNIT/0.5 ML VIAL SC ×2 (09:03→20:44)
[2018-01-27] MEDS: ASPIRIN (EC) 81 MG TAB PO (09:04)
[2018-01-27] MEDS: QUETIAPINE 25 MG TAB PO ×2 (09:04→20:39)
[2018-01-27] MEDS: MAGNESIUM HYDROXIDE 30ML CUP PO (17:41)
[2018-01-27 18:28] LABS: ADD UMIC NO; UR ASCORBIC ACID NEGATIVE (NEGATIVE); UR BILIRUBIN (Dip) NEGATIVE (NEGATIVE); UR BLOOD (Dip) NEGATIVE (NEGATIVE); UR CLARITY CLEAR (CLEAR); UR COLOR YELLOW (YELLOW); UR GLUCOSE (Dip) NEGATIVE (NEGATIVE); UR KETONES (Dip) NEGATIVE (NEGATIVE); UR LEUKOCYTE ESTERASE (Dip) NEGATIVE Leu/ul (NEGATIVE); UR NITRITE (Dip) NEGATIVE (NEGATIVE); UR SPECIFIC GRAVITY (Dip) 1.008 (1.003-1.030); UR TOTAL PROTEIN (Dip) NEGATIVE (NEGATIVE); UR UROBILINOGEN (Dip) NEGATIVE (NEGATIVE)
[2018-01-27] MEDS: ATORVASTATIN 40 MG TAB PO (20:39)
[2018-01-28] MEDS: ALBUTEROL/IPRATROPIUM (NEB) 3 ML AMP HHN ×4 (03:05→19:44)
[2018-01-28] MEDS: BUMETANIDE 1 MG TAB PO ×2 (05:56→17:23)
[2018-01-28] MEDS: HYDROCODONE/APAP (5/325) TAB PO ×3 (07:35→23:31)
[2018-01-28] MEDS: ONDANSETRON 4 MG INJ IV ×3 (07:39→23:31)
[2018-01-28] MEDS: ASPIRIN (EC) 81 MG TAB PO (08:39)
[2018-01-28] MEDS: THIAMINE 100 MG TAB PO (08:39)
[2018-01-28] MEDS: PREGABALIN 75 MG CAP PO ×2 (08:39→20:34)
[2018-01-28] MEDS: QUETIAPINE 25 MG TAB PO ×2 (08:40→20:34)
[2018-01-28] MEDS: METOPROLOL (XL) 25 MG TAB PO (08:40)
[2018-01-28] MEDS: HEPARIN 5,000 UNIT/0.5 ML VIAL SC ×2 (08:43→20:35)
[2018-01-28] MEDS: MAGNESIUM HYDROXIDE 30ML CUP PO (10:25)
[2018-01-28 14:42] LABS: ADD MAN DIFF? NO
[2018-01-28 14:45] LABS: WHITE BLOOD COUNT 10.3 10^3/ul (4.8-10.8)
[2018-01-28 14:45] LABS: BASOPHILS % 0.1 % (0.0-2.0); EOSINOPHILS # 0.1 10^3/ul (0.0-0.5); EOSINOPHILS % 1.1 % (0.0-7.0); HEMOGLOBIN 9.3 g/dl (14.0-18.0); LYMPHOCYTES # 1.2 10^3/ul (0.8-2.9); LYMPHOCYTES % 11.3 % (15.0-51.0); MEAN CORPUSCULAR HEMOGLOBIN 30.8 pg (29.0-33.0); MEAN CORPUSCULAR HGB CONC 33.2 g/dl (32.0-37.0); MEAN CORPUSCULAR VOLUME 92.7 fl (82.0-101.0); MEAN PLATELET VOLUME 11.3 fl (7.4-10.4); MONOCYTE # 1.3 10^3/ul (0.3-0.9); MONOCYTES % 12.8 % (0.0-11.0); NEUTROPHIL # 7.7 10^3/ul (1.6-7.5); NEUTROPHILS % 73.9 % (39.0-77.0); PLATELET COUNT 107 10^3/UL (140-415); POSITIVE DIFF @See below; RED BLOOD COUNT 3.02 10^6/ul (4.70-6.10)
[2018-01-28 15:02] LABS: ANION GAP 15 (8-16); BLOOD UREA NITROGEN 28 mg/dl (7-20); CALCIUM 8.6 mg/dl (8.4-10.2); CARBON DIOXIDE 27 mmol/L (21-31); CHLORIDE 104 mmol/L (97-110); CREATININE 1.15 mg/dl (0.61-1.24); GLUCOSE 97 mg/dl (70-220); MAGNESIUM 1.9 mg/dl (1.7-2.5); PHOSPHORUS 2.4 mg/dl (2.5-4.9); POTASSIUM 4.1 mmol/L (3.5-5.1); SODIUM 142 mmol/L (135-144)
[2018-01-28] MEDS: ATORVASTATIN 40 MG TAB PO (20:34)
[2018-01-29] MEDS: ALBUTEROL/IPRATROPIUM (NEB) 3 ML AMP HHN ×4 (01:44→20:32)
[2018-01-29] MEDS: BUMETANIDE 1 MG TAB PO ×2 (06:00→17:07)
[2018-01-29] MEDS: ONDANSETRON 4 MG INJ IV ×2 (06:19→15:14)
[2018-01-29] MEDS: ASPIRIN (EC) 81 MG TAB PO (08:50)
[2018-01-29] MEDS: PREGABALIN 75 MG CAP PO ×2 (08:50→21:09)
[2018-01-29] MEDS: QUETIAPINE 25 MG TAB PO ×2 (08:50→21:09)
[2018-01-29] MEDS: HEPARIN 5,000 UNIT/0.5 ML VIAL SC ×2 (08:50→21:09)
[2018-01-29] MEDS: METOPROLOL (XL) 25 MG TAB PO (08:51)
[2018-01-29] MEDS: THIAMINE 100 MG TAB PO (08:51)
[2018-01-29 10:46] LABS: ADD MAN DIFF? NO
[2018-01-29 10:48] LABS: ABNORMAL IP MESSAGE 1; BASOPHILS % 0.1 % (0.0-2.0); EOSINOPHILS # 0.2 10^3/ul (0.0-0.5); EOSINOPHILS % 1.7 % (0.0-7.0); HEMATOCRIT 28.9 % (42.0-52.0); HEMOGLOBIN 9.5 g/dl (14.0-18.0); LYMPHOCYTES # 1.1 10^3/ul (0.8-2.9); LYMPHOCYTES % 12.4 % (15.0-51.0); MEAN CORPUSCULAR HEMOGLOBIN 30.7 pg (29.0-33.0); MEAN CORPUSCULAR HGB CONC 32.9 g/dl (32.0-37.0); MEAN CORPUSCULAR VOLUME 93.5 fl (82.0-101.0); MEAN PLATELET VOLUME 10.5 fl (7.4-10.4); MONOCYTE # 1.2 10^3/ul (0.3-0.9); MONOCYTES % 12.7 % (0.0-11.0); NEUTROPHIL # 6.6 10^3/ul (1.6-7.5); NEUTROPHILS % 72.1 % (39.0-77.0); PLATELET COUNT 99 10^3/UL (140-415); POSITIVE DIFF @See below; RED BLOOD COUNT 3.09 10^6/ul (4.70-6.10)
[2018-01-29 10:48] LABS: WHITE BLOOD COUNT 9.1 10^3/ul (4.8-10.8)
[2018-01-29 11:10] LABS: ANION GAP 15 (8-16); BLOOD UREA NITROGEN 34 mg/dl (7-20); CALCIUM 8.6 mg/dl (8.4-10.2); CARBON DIOXIDE 25 mmol/L (21-31); CHLORIDE 101 mmol/L (97-110); CREATININE 1.13 mg/dl (0.61-1.24); GLUCOSE 95 mg/dl (70-220); MAGNESIUM 1.9 mg/dl (1.7-2.5); PHOSPHORUS 3.5 mg/dl (2.5-4.9); POTASSIUM 4.7 mmol/L (3.5-5.1); SODIUM 136 mmol/L (135-144)
[2018-01-29] MEDS: HYDROCODONE/APAP (5/325) TAB PO (15:14)
[2018-01-29 15:48] LABS: ADD UMIC NO; UR ASCORBIC ACID NEGATIVE (NEGATIVE); UR BILIRUBIN (Dip) NEGATIVE (NEGATIVE); UR BLOOD (Dip) NEGATIVE (NEGATIVE); UR CLARITY CLEAR (CLEAR); UR COLOR YELLOW (YELLOW); UR GLUCOSE (Dip) NEGATIVE (NEGATIVE); UR KETONES (Dip) NEGATIVE (NEGATIVE); UR LEUKOCYTE ESTERASE (Dip) NEGATIVE Leu/ul (NEGATIVE); UR NITRITE (Dip) NEGATIVE (NEGATIVE); UR SPECIFIC GRAVITY (Dip) 1.013 (1.003-1.030); UR TOTAL PROTEIN (Dip) NEGATIVE (NEGATIVE); UR UROBILINOGEN (Dip) NEGATIVE (NEGATIVE)
[2018-01-29] MEDS: FOSFOMYCIN 3 GM PACKET PO (16:56)
[2018-01-29] MEDS: MAGNESIUM HYDROXIDE 30ML CUP PO (19:22)
[2018-01-29] MEDS: ATORVASTATIN 40 MG TAB PO (21:09)
[2018-01-30] MEDS: HYDROCODONE/APAP (5/325) TAB PO ×2 (00:28→09:54)
[2018-01-30] MEDS: ALBUTEROL/IPRATROPIUM (NEB) 3 ML AMP HHN ×5 (02:00→19:26)
[2018-01-30] MEDS: BUMETANIDE 1 MG TAB PO ×2 (05:42→18:30)
[2018-01-30 06:13] LABS: ADD MAN DIFF? NO
[2018-01-30 06:18] LABS: WHITE BLOOD COUNT 6.4 10^3/ul (4.8-10.8)
[2018-01-30 06:18] LABS: ABNORMAL IP MESSAGE 1; BASOPHILS % 0.2 % (0.0-2.0); EOSINOPHILS # 0.2 10^3/ul (0.0-0.5); EOSINOPHILS % 2.5 % (0.0-7.0); HEMATOCRIT 30.4 % (42.0-52.0); LYMPHOCYTES # 1.2 10^3/ul (0.8-2.9); LYMPHOCYTES % 19.2 % (15.0-51.0); MEAN CORPUSCULAR HEMOGLOBIN 30.4 pg (29.0-33.0); MEAN CORPUSCULAR HGB CONC 32.9 g/dl (32.0-37.0); MEAN CORPUSCULAR VOLUME 92.4 fl (82.0-101.0); MEAN PLATELET VOLUME 11.5 fl (7.4-10.4); MONOCYTE # 0.9 10^3/ul (0.3-0.9); MONOCYTES % 14.2 % (0.0-11.0); NEUTROPHIL # 4.1 10^3/ul (1.6-7.5); NEUTROPHILS % 63.3 % (39.0-77.0); PLATELET COUNT 118 10^3/UL (140-415); POSITIVE DIFF @See below; RED BLOOD COUNT 3.29 10^6/ul (4.70-6.10); RED CELL DISTRIBUTION WIDTH 22.2 % (11.5-14.5)
[2018-01-30 06:41] LABS: MAGNESIUM 2.1 mg/dl (1.7-2.5)
[2018-01-30 06:43] LABS: ANION GAP 12 (8-16); BLOOD UREA NITROGEN 36 mg/dl (7-20); CALCIUM 8.9 mg/dl (8.4-10.2); CARBON DIOXIDE 27 mmol/L (21-31); CHLORIDE 104 mmol/L (97-110); CREATININE 1.19 mg/dl (0.61-1.24); GLUCOSE 88 mg/dl (70-220); POTASSIUM 4.4 mmol/L (3.5-5.1); SODIUM 139 mmol/L (135-144)
[2018-01-30] MEDS: HEPARIN 5,000 UNIT/0.5 ML VIAL SC ×2 (09:00→20:21)
[2018-01-30] MEDS: QUETIAPINE 25 MG TAB PO ×2 (09:52→21:28)
[2018-01-30] MEDS: ASPIRIN (EC) 81 MG TAB PO (09:52)
[2018-01-30] MEDS: PREGABALIN 75 MG CAP PO ×2 (09:52→21:29)
[2018-01-30] MEDS: METOPROLOL (XL) 25 MG TAB PO (09:53)
[2018-01-30] MEDS: THIAMINE 100 MG TAB PO (09:53)
[2018-01-30] MEDS: ONDANSETRON 4 MG INJ IV ×2 (09:58→18:32)
[2018-01-30] MEDS: MAGNESIUM HYDROXIDE 30ML CUP PO (20:21)
[2018-01-30] MEDS: ATORVASTATIN 40 MG TAB PO (21:28)
[2018-01-31] MEDS: traZODone 50 MG TAB PO ×2 (00:54→23:27)
[2018-01-31] MEDS: ALBUTEROL/IPRATROPIUM (NEB) 3 ML AMP HHN ×4 (01:13→20:00)
[2018-01-31] MEDS: HYDROCODONE/APAP (5/325) TAB PO ×2 (03:01→19:44)
[2018-01-31] MEDS: BUMETANIDE 1 MG TAB PO ×2 (07:02→18:00)
[2018-01-31] MEDS: METOPROLOL (XL) 25 MG TAB PO (09:00)
[2018-01-31] MEDS: PREGABALIN 75 MG CAP PO ×2 (09:58→22:22)
[2018-01-31] MEDS: QUETIAPINE 25 MG TAB PO ×2 (09:58→22:22)
[2018-01-31] MEDS: ASPIRIN (EC) 81 MG TAB PO (09:58)
[2018-01-31] MEDS: THIAMINE 100 MG TAB PO (09:58)
[2018-01-31] MEDS: HEPARIN 5,000 UNIT/0.5 ML VIAL SC ×2 (10:00→20:35)
[2018-01-31 12:15] LABS: ADD MAN DIFF? NO; BASOPHILS % 0.3 % (0.0-2.0); EOSINOPHILS # 0.2 10^3/ul (0.0-0.5); EOSINOPHILS % 2.2 % (0.0-7.0); HEMATOCRIT 30.1 % (42.0-52.0); HEMOGLOBIN 9.8 g/dl (14.0-18.0); LYMPHOCYTES # 1.3 10^3/ul (0.8-2.9); LYMPHOCYTES % 18.9 % (15.0-51.0); MEAN CORPUSCULAR HEMOGLOBIN 30.4 pg (29.0-33.0); MEAN CORPUSCULAR HGB CONC 32.6 g/dl (32.0-37.0); MEAN CORPUSCULAR VOLUME 93.5 fl (82.0-101.0); MEAN PLATELET VOLUME 10.7 fl (7.4-10.4); MONOCYTES % 14.5 % (0.0-11.0); NEUTROPHIL # 4.2 10^3/ul (1.6-7.5); NEUTROPHILS % 63.7 % (39.0-77.0); PLATELET COUNT 126 10^3/UL (140-415); POSITIVE DIFF @See below; RED BLOOD COUNT 3.22 10^6/ul (4.70-6.10); RED CELL DISTRIBUTION WIDTH 21.6 % (11.5-14.5)
[2018-01-31 12:15] LABS: WHITE BLOOD COUNT 6.7 10^3/ul (4.8-10.8)
[2018-01-31 12:46] LABS: ALANINE AMINOTRANSFERASE 20 IU/L (13-69); ALBUMIN 3.8 g/dl (3.3-4.9); ALBUMIN/GLOBULIN RATIO 1.02; ALKALINE PHOSPHATASE 95 IU/L (42-121); ANION GAP 12 (8-16); ASPARTATE AMINO TRANSFERASE 31 IU/L (15-46); BILIRUBIN,INDIRECT 0.4 mg/dl (0-1.1); BILIRUBIN,TOTAL 0.4 mg/dl (0.2-1.3); BLOOD UREA NITROGEN 44 mg/dl (7-20); CALCIUM 8.5 mg/dl (8.4-10.2); CARBON DIOXIDE 30 mmol/L (21-31); CHLORIDE 99 mmol/L (97-110); CREATININE 1.39 mg/dl (0.61-1.24); GLUCOSE 100 mg/dl (70-220); POTASSIUM 4.3 mmol/L (3.5-5.1); SODIUM 137 mmol/L (135-144); TOTAL PROTEIN 7.5 g/dl (6.1-8.1)
[2018-01-31] MEDS: ONDANSETRON 4 MG INJ IV (19:41)
[2018-01-31] MEDS: ATORVASTATIN 40 MG TAB PO (20:34)
[2018-01-31] MEDS: MAGNESIUM HYDROXIDE 30ML CUP PO (20:36)
[2018-01-31] MEDS: NA PHOSPHATE/BIPHOS 133 ML ENEMA PR (22:25)
[2018-02-01] MEDS: traMADol 50 MG TAB PO (01:02)
[2018-02-01] MEDS: ALBUTEROL/IPRATROPIUM (NEB) 3 ML AMP HHN ×4 (01:35→20:00)
[2018-02-01] MEDS: BUMETANIDE 1 MG TAB PO ×2 (05:31→16:59)
[2018-02-01 07:21] LABS: ANION GAP 13 (8-16); BLOOD UREA NITROGEN 50 mg/dl (7-20); CARBON DIOXIDE 29 mmol/L (21-31); CHLORIDE 99 mmol/L (97-110); CREATININE 1.31 mg/dl (0.61-1.24); GLUCOSE 91 mg/dl (70-220); MAGNESIUM 2.2 mg/dl (1.7-2.5); PHOSPHORUS 3.7 mg/dl (2.5-4.9); POTASSIUM 5.4 mmol/L (3.5-5.1); SODIUM 136 mmol/L (135-144)
[2018-02-01] MEDS: HYDROCODONE/APAP (5/325) TAB PO (09:05)
[2018-02-01] MEDS: THIAMINE 100 MG TAB PO (09:06)
[2018-02-01] MEDS: QUETIAPINE 25 MG TAB PO ×2 (09:06→21:39)
[2018-02-01] MEDS: PREGABALIN 75 MG CAP PO ×2 (09:06→21:39)
[2018-02-01] MEDS: METOPROLOL (XL) 25 MG TAB PO (09:06)
[2018-02-01] MEDS: ASPIRIN (EC) 81 MG TAB PO (09:06)
[2018-02-01] MEDS: HEPARIN 5,000 UNIT/0.5 ML VIAL SC ×2 (09:06→21:00)
[2018-02-01 14:56] LABS: POTASSIUM 4.5 mmol/L (3.5-5.1)
[2018-02-01] MEDS: ATORVASTATIN 40 MG TAB PO (21:39)
[2018-02-01] MEDS: traZODone 50 MG TAB PO (21:47)
[2018-02-02] MEDS: ALBUTEROL/IPRATROPIUM (NEB) 3 ML AMP HHN ×4 (01:53→20:29)
[2018-02-02] MEDS: BUMETANIDE 1 MG TAB PO (05:10)
[2018-02-02] MEDS: ONDANSETRON 4 MG INJ IV ×3 (05:17→20:19)
[2018-02-02] MEDS: METOPROLOL (XL) 25 MG TAB PO (09:00)
[2018-02-02] MEDS: HEPARIN 5,000 UNIT/0.5 ML VIAL SC ×2 (09:00→20:19)
[2018-02-02] MEDS: THIAMINE 100 MG TAB PO (11:21)
[2018-02-02] MEDS: ASPIRIN (EC) 81 MG TAB PO (11:21)
[2018-02-02] MEDS: PREGABALIN 75 MG CAP PO ×2 (11:21→20:19)
[2018-02-02] MEDS: QUETIAPINE 25 MG TAB PO ×2 (11:21→20:19)
[2018-02-02 16:59] LABS: ADD MAN DIFF? NO
[2018-02-02 17:01] LABS: WHITE BLOOD COUNT 6.3 10^3/ul (4.8-10.8)
[2018-02-02 17:01] LABS: BASOPHILS % 0.3 % (0.0-2.0); EOSINOPHILS # 0.1 10^3/ul (0.0-0.5); EOSINOPHILS % 1.1 % (0.0-7.0); HEMATOCRIT 28.1 % (42.0-52.0); HEMOGLOBIN 9.3 g/dl (14.0-18.0); LYMPHOCYTES # 0.9 10^3/ul (0.8-2.9); LYMPHOCYTES % 14.1 % (15.0-51.0); MEAN CORPUSCULAR HEMOGLOBIN 30.7 pg (29.0-33.0); MEAN CORPUSCULAR HGB CONC 33.1 g/dl (32.0-37.0); MEAN CORPUSCULAR VOLUME 92.7 fl (82.0-101.0); MEAN PLATELET VOLUME 11.7 fl (7.4-10.4); MONOCYTE # 0.7 10^3/ul (0.3-0.9); MONOCYTES % 11.4 % (0.0-11.0); NEUTROPHIL # 4.6 10^3/ul (1.6-7.5); NEUTROPHILS % 72.9 % (39.0-77.0); PLATELET COUNT 157 10^3/UL (140-415); RED BLOOD COUNT 3.03 10^6/ul (4.70-6.10); RED CELL DISTRIBUTION WIDTH 20.7 % (11.5-14.5)
[2018-02-02 17:26] LABS: ANION GAP 12 (8-16); BLOOD UREA NITROGEN 52 mg/dl (7-20); CALCIUM 8.6 mg/dl (8.4-10.2); CARBON DIOXIDE 27 mmol/L (21-31); CHLORIDE 101 mmol/L (97-110); CREATININE 1.32 mg/dl (0.61-1.24); GLUCOSE 87 mg/dl (70-220); MAGNESIUM 2.1 mg/dl (1.7-2.5); PHOSPHORUS 4.1 mg/dl (2.5-4.9); POTASSIUM 4.1 mmol/L (3.5-5.1); SODIUM 136 mmol/L (135-144)
[2018-02-02] MEDS: BISMUTH SUBSALICYLATE 240 ML BTL PO (19:47)
[2018-02-02] MEDS: ATORVASTATIN 40 MG TAB PO (20:19)
[2018-02-02] MEDS: traZODone 50 MG TAB PO (21:27)
[2018-02-03] MEDS: ALBUTEROL/IPRATROPIUM (NEB) 3 ML AMP HHN ×4 (01:29→20:41)
[2018-02-03] MEDS: ONDANSETRON 4 MG INJ IV (02:29)
[2018-02-03 06:39] LABS: ANION GAP 13 (8-16); BLOOD UREA NITROGEN 52 mg/dl (7-20); CALCIUM 8.4 mg/dl (8.4-10.2); CARBON DIOXIDE 27 mmol/L (21-31); CHLORIDE 102 mmol/L (97-110); CREATININE 1.34 mg/dl (0.61-1.24); GLUCOSE 97 mg/dl (70-220); MAGNESIUM 2.1 mg/dl (1.7-2.5); PHOSPHORUS 3.9 mg/dl (2.5-4.9); POTASSIUM 5.2 mmol/L (3.5-5.1); SODIUM 137 mmol/L (135-144)
[2018-02-03] MEDS: PREGABALIN 75 MG CAP PO ×2 (08:04→20:09)
[2018-02-03] MEDS: ASPIRIN (EC) 81 MG TAB PO (08:05)
[2018-02-03] MEDS: THIAMINE 100 MG TAB PO (08:05)
[2018-02-03] MEDS: QUETIAPINE 25 MG TAB PO ×2 (08:05→20:10)
[2018-02-03] MEDS: HEPARIN 5,000 UNIT/0.5 ML VIAL SC ×2 (08:06→20:11)
[2018-02-03] MEDS: METOPROLOL (XL) 25 MG TAB PO (08:06)
[2018-02-03] MEDS: ATORVASTATIN 40 MG TAB PO (20:09)
[2018-02-03] MEDS: BISMUTH SUBSALICYLATE 240 ML BTL PO (21:54)
[2018-02-03] MEDS: MAGNESIUM HYDROXIDE 30ML CUP PO (22:30)
[2018-02-04] MEDS: ONDANSETRON 4 MG INJ IV ×2 (00:30→09:14)
[2018-02-04] MEDS: traZODone 50 MG TAB PO (01:11)
[2018-02-04] MEDS: ALBUTEROL/IPRATROPIUM (NEB) 3 ML AMP HHN ×4 (01:31→19:47)
[2018-02-04 06:53] LABS: ANION GAP 11 (8-16); BLOOD UREA NITROGEN 48 mg/dl (7-20); CALCIUM 8.9 mg/dl (8.4-10.2); CARBON DIOXIDE 26 mmol/L (21-31); CHLORIDE 106 mmol/L (97-110); CREATININE 1.26 mg/dl (0.61-1.24); GLUCOSE 96 mg/dl (70-220); MAGNESIUM 2.2 mg/dl (1.7-2.5); PHOSPHORUS 3.5 mg/dl (2.5-4.9); SODIUM 138 mmol/L (135-144)
[2018-02-04 06:58] LABS: POTASSIUM 5.2 mmol/L (3.5-5.1)
[2018-02-04] MEDS: HEPARIN 5,000 UNIT/0.5 ML VIAL SC ×3 (09:00→20:36)
[2018-02-04] MEDS: THIAMINE 100 MG TAB PO (09:56)
[2018-02-04] MEDS: ASPIRIN (EC) 81 MG TAB PO (09:56)
[2018-02-04] MEDS: METOPROLOL (XL) 25 MG TAB PO (09:56)
[2018-02-04] MEDS: QUETIAPINE 25 MG TAB PO ×2 (09:56→20:33)
[2018-02-04] MEDS: PREGABALIN 75 MG CAP PO ×2 (09:56→20:31)
[2018-02-04] MEDS: ATORVASTATIN 40 MG TAB PO (20:31)
[2018-02-05] MEDS: ALBUTEROL/IPRATROPIUM (NEB) 3 ML AMP HHN ×4 (02:18→19:22)
[2018-02-05] MEDS: ONDANSETRON 4 MG INJ IV ×2 (04:44→21:00)
[2018-02-05] MEDS: HYDROCODONE/APAP (5/325) TAB PO (05:44)
[2018-02-05] MEDS: PREGABALIN 75 MG CAP PO ×2 (08:44→21:01)
[2018-02-05] MEDS: THIAMINE 100 MG TAB PO (08:44)
[2018-02-05] MEDS: ASPIRIN (EC) 81 MG TAB PO (08:44)
[2018-02-05] MEDS: METOPROLOL (XL) 25 MG TAB PO (08:45)
[2018-02-05] MEDS: QUETIAPINE 25 MG TAB PO ×2 (08:45→21:01)
[2018-02-05] MEDS: HEPARIN 5,000 UNIT/0.5 ML VIAL SC ×2 (08:51→21:00)
[2018-02-05] MEDS: ATORVASTATIN 40 MG TAB PO (21:00)
[2018-02-06] MEDS: traZODone 50 MG TAB PO ×2 (01:38→23:56)
[2018-02-06] MEDS: ALBUTEROL/IPRATROPIUM (NEB) 3 ML AMP HHN ×5 (01:47→19:47)
[2018-02-06] MEDS: ONDANSETRON 4 MG INJ IV ×2 (03:27→21:06)
[2018-02-06 06:15] LABS: ANION GAP 13 (8-16); BLOOD UREA NITROGEN 29 mg/dl (7-20); CALCIUM 9.1 mg/dl (8.4-10.2); CARBON DIOXIDE 23 mmol/L (21-31); CHLORIDE 107 mmol/L (97-110); CREATININE 0.93 mg/dl (0.61-1.24); GLUCOSE 124 mg/dl (70-220); MAGNESIUM 1.7 mg/dl (1.7-2.5); PHOSPHORUS 4.3 mg/dl (2.5-4.9); SODIUM 138 mmol/L (135-144)
[2018-02-06] MEDS: ASPIRIN (EC) 81 MG TAB PO (08:46)
[2018-02-06] MEDS: QUETIAPINE 25 MG TAB PO ×2 (08:46→21:04)
[2018-02-06] MEDS: PREGABALIN 75 MG CAP PO ×2 (08:46→21:04)
[2018-02-06] MEDS: ACETAMINOPHEN 325 MG TAB PO (08:46)
[2018-02-06] MEDS: THIAMINE 100 MG TAB PO (08:46)
[2018-02-06] MEDS: METOPROLOL (XL) 25 MG TAB PO (08:48)
[2018-02-06] MEDS: HEPARIN 5,000 UNIT/0.5 ML VIAL SC ×2 (08:49→21:00)
[2018-02-06] MEDS: ATORVASTATIN 40 MG TAB PO (21:03)
[2018-02-07] MEDS: BISMUTH SUBSALICYLATE 240 ML BTL PO (01:08)
[2018-02-07] MEDS: ONDANSETRON 4 MG INJ IV (04:04)
[2018-02-07] MEDS: ALBUTEROL/IPRATROPIUM (NEB) 3 ML AMP HHN ×3 (08:00→19:45)
[2018-02-07] MEDS: ASPIRIN (EC) 81 MG TAB PO (08:51)
[2018-02-07] MEDS: QUETIAPINE 25 MG TAB PO ×2 (08:51→20:35)
[2018-02-07] MEDS: PREGABALIN 75 MG CAP PO ×2 (08:51→20:35)
[2018-02-07] MEDS: THIAMINE 100 MG TAB PO (08:51)
[2018-02-07] MEDS: METOPROLOL (XL) 25 MG TAB PO (08:52)
[2018-02-07] MEDS: HEPARIN 5,000 UNIT/0.5 ML VIAL SC ×2 (08:53→20:42)
[2018-02-07] MEDS: ATORVASTATIN 40 MG TAB PO (20:35)
== END 2018-02-07 21:28 | DRG 193 ==
LOC: PP2 01-21 16:38 → E/R 08:07 → MS4 14:14 → MS2 01-18 09:58 → MS4 10:18 → MS2 01-18 16:10 → MS4 01-18 20:41
DX: J18.9 Pneumonia, unspecified organism (principal); J96.00 Acute respiratory failure, unspecified whether with hypoxia or hypercapnia; I50.23 Acute on chronic systolic (congestive) heart failure; J44.0 Chronic obstructive pulmonary disease with (acute) lower respiratory infection; J44.1 Chronic obstructive pulmonary disease with (acute) exacerbation; N17.9 Acute kidney failure, unspecified; E87.2 Acidosis; E87.3 Alkalosis; I42.9 Cardiomyopathy, unspecified; I11.0 Hypertensive heart disease with heart failure; E78.5 Hyperlipidemia, unspecified; F10.11 Alcohol abuse, in remission; E87.5 Hyperkalemia; E83.9 Disorder of mineral metabolism, unspecified; E83.42 Hypomagnesemia; R30.0 Dysuria; K59.00 Constipation, unspecified; Z91.14 Patient's other noncompliance with medication regimen; Z99.81 Dependence on supplemental oxygen; Z95.810 Presence of automatic (implantable) cardiac defibrillator
CPT/HCPCS: 36415; 36600; 71045; 71250; 73030; 76775; 80048; 80053; 80061; 81001; 81003; 82043; 82540; 82803; 82962; 83036; 83605; 83735; 83880; 84100; 84132; 84155; 84300; 84439; 84443; 84484; 85025; 85610; 85730; 87040; 92526; 92610; 93005; 94640; 94644; 94660; 94664; 96374; 96375; 97110; 97116; 97163; 97165; 97530; 99291-25; J1120

== ENCOUNTER 2018-07-27 09:22 | Emergency (ER) | payer MEDICARE, OTHER ==
[2018-07-27] MEDS: ONDANSETRON 4 MG INJ IV ×2 (11:03→13:57)
[2018-07-27] MEDS: morphine 4 MG/ML VIAL IV ×2 (11:03→13:58)
[2018-07-27] MEDS: HYDROmorphONE 1 MG/ML SYG IV (11:08)
[2018-07-27 11:19] LABS: ADD MAN DIFF? NO
[2018-07-27 11:45] LABS: BASOPHILS % 0.3 % (0.0-2.0); EOSINOPHILS # 0.1 10^3/ul (0.0-0.5); EOSINOPHILS % 0.7 % (0.0-7.0); HEMATOCRIT 41.6 % (42.0-52.0); LYMPHOCYTES # 1.3 10^3/ul (0.8-2.9); MEAN CORPUSCULAR HEMOGLOBIN 28.1 pg (29.0-33.0); MEAN CORPUSCULAR HGB CONC 33.7 g/dl (32.0-37.0); MEAN CORPUSCULAR VOLUME 83.4 fl (82.0-101.0); MEAN PLATELET VOLUME 11.6 fl (7.4-10.4); MONOCYTE # 1.2 10^3/ul (0.3-0.9); MONOCYTES % 9.8 % (0.0-11.0); NEUTROPHIL # 9.2 10^3/ul (1.6-7.5); NEUTROPHILS % 77.9 % (39.0-77.0); RED BLOOD COUNT 4.99 10^6/ul (4.70-6.10); RED CELL DISTRIBUTION WIDTH 16.6 % (11.5-14.5)
[2018-07-27 11:45] LABS: WHITE BLOOD COUNT 11.8 10^3/ul (4.8-10.8)
[2018-07-27 11:49] LABS: PLATELET COUNT 140 10^3/UL (140-415)
[2018-07-27 12:49] LABS: ERYTHROCYTE SEDIMENTATION RATE 15 mm/Hr (0-20)
== END 2018-07-27 15:30 | disposition home or self-care (01) ==
LOC: E/R 09:22
DX: M19.012 Primary osteoarthritis, left shoulder (principal); I11.0 Hypertensive heart disease with heart failure; I50.9 Heart failure, unspecified; F17.210 Nicotine dependence, cigarettes, uncomplicated; J44.9 Chronic obstructive pulmonary disease, unspecified; Z95.0 Presence of cardiac pacemaker; Z79.82 Long term (current) use of aspirin
CPT/HCPCS: 73030; 85025; 85651; 96374; 96375; 99284-25

== ENCOUNTER 2018-07-29 08:39 | Emergency (ER) | payer MEDICARE, OTHER | END 2018-07-29 10:26 | disposition home or self-care (01) | LOC: E/R 08:39 | DX: M25.512 Pain in left shoulder (principal); I11.0 Hypertensive heart disease with heart failure; I50.9 Heart failure, unspecified; J44.9 Chronic obstructive pulmonary disease, unspecified; Z87.891 Personal history of nicotine dependence; Z79.82 Long term (current) use of aspirin; Z95.0 Presence of cardiac pacemaker | CPT/HCPCS: 71045; 99283 ==

== ENCOUNTER 2018-08-11 12:30 | Inpatient (IN) | payer MEDICARE, OTHER ==
[2018-08-11 13:20] LABS: ADD MAN DIFF? NO
[2018-08-11] MEDS: SODIUM CHLORIDE 0.9% 1L BAG IV* (13:22)
[2018-08-11] MEDS: METHYLPREDNISOLONE 125 MG INJ IV (13:22)
[2018-08-11 13:27] LABS: WHITE BLOOD COUNT 10.2 10^3/ul (4.8-10.8)
[2018-08-11 13:27] LABS: BASOPHILS % 0.2 % (0.0-2.0); HEMATOCRIT 37.9 % (42.0-52.0); HEMOGLOBIN 12.6 g/dl (14.0-18.0); LYMPHOCYTES # 0.8 10^3/ul (0.8-2.9); LYMPHOCYTES % 8.2 % (15.0-51.0); MEAN CORPUSCULAR HEMOGLOBIN 28.4 pg (29.0-33.0); MEAN CORPUSCULAR HGB CONC 33.2 g/dl (32.0-37.0); MEAN CORPUSCULAR VOLUME 85.4 fl (82.0-101.0); MEAN PLATELET VOLUME 10.8 fl (7.4-10.4); MONOCYTE # 0.3 10^3/ul (0.3-0.9); MONOCYTES % 3.3 % (0.0-11.0); NEUTROPHIL # 8.9 10^3/ul (1.6-7.5); NEUTROPHILS % 87.8 % (39.0-77.0); PLATELET COUNT 218 10^3/UL (140-415); RED BLOOD COUNT 4.44 10^6/ul (4.70-6.10); RED CELL DISTRIBUTION WIDTH 16.6 % (11.5-14.5)
[2018-08-11] MEDS ORDERED: morphine 4 MG/ML VIAL (13:38)
[2018-08-11] MEDS: morphine 4 MG/ML VIAL IV ×2 (13:42→15:07)
[2018-08-11] MEDS: LEVALBUTEROL (NEB) 1.25 MG/0.5 ML AMP INH (13:45)
[2018-08-11] MEDS: IPRATROPIUM (NEB) 0.5 MG/2.5 ML AMP INH (13:46)
[2018-08-11 13:47] LABS: ANION GAP 16 (5-13); BLOOD UREA NITROGEN 22 mg/dl (7-20); CALCIUM 9.2 mg/dl (8.4-10.2); CARBON DIOXIDE 19 mmol/L (21-31); CHLORIDE 107 mmol/L (97-110); CREATININE 0.88 mg/dl (0.61-1.24); GLUCOSE 149 mg/dl (70-220); PROTIME 14.4 Sec (11.9-14.9); PT RATIO 1.1; SODIUM 142 mmol/L (135-144)
[2018-08-11 13:48] LABS: PARTIAL THROMBOPLASTIN TIME 30.3 Sec (23.0-35.0)
[2018-08-11 13:58] LABS: TROPONIN-I 0.091 ng/ml (0.000-0.120)
[2018-08-11] MEDS ORDERED: ONDANSETRON 4 MG INJ IV (15:00)
[2018-08-11] MEDS ORDERED: ACETAMINOPHEN 325 MG TAB PO (15:00)
[2018-08-11] MEDS ORDERED: ALBUTEROL/IPRATROPIUM (NEB) 3 ML AMP HHN (17:00)
[2018-08-11] MEDS ORDERED: DOCUSATE SODIUM 100 MG CAP PO (17:00)
[2018-08-11] MEDS ORDERED: NACL 0.9% 3 ML SYG IV (17:00)
[2018-08-11] MEDS: FUROSEMIDE 40 MG INJ IV (18:01)
[2018-08-11 18:12] LABS: LACTIC ACID 4.1 mmol/L (0.5-2.0)
[2018-08-11] MEDS: DILTIAZEM 25 MG INJ IV (18:29)
[2018-08-11] MEDS: HYDROmorphONE 0.5 MG/0.5 ML SYG IV (19:05)
[2018-08-11 21:56] LABS: AADO2 Arterial 324.4 mmHg (7.0-24.0); Allen Test ACCEPTAB; Arterial Base Excess -6.8 mmol/L (-3.0-3); Arterial Blood Gas Oxygen Sat 94.4 mmHG (95.0-100.0); Arterial COHb 0.4 % (0.0-3.0); Arterial Fraction of Oxyhgb 93.9 % (93.0-99.0); Arterial HCO3 15.6 mmol/L (22.0-26.0); Arterial MetHb 0.1 % (0.0-1.5); MODE HFNC; Site Right Radial
[2018-08-11] MEDS: ATORVASTATIN 40 MG TAB PO (21:59)
[2018-08-11] MEDS: QUETIAPINE 25 MG TAB PO (22:00)
[2018-08-11] MEDS: PREGABALIN 75 MG CAP PO (22:00)
[2018-08-11] MEDS: morphine LIQ (10 MG/5 ML) CUP PO (22:42)
[2018-08-11] MEDS: ZOLPIDEM 5 MG TAB PO (22:42)
[2018-08-12] MEDS: DIGOXIN 500 MCG INJ IV (02:29)
[2018-08-12] MEDS: FUROSEMIDE 40 MG INJ IV ×2 (05:09→17:35)
[2018-08-12] MEDS: morphine LIQ (10 MG/5 ML) CUP PO ×3 (05:09→21:03)
[2018-08-12 05:37] LABS: ADD MAN DIFF? NO
[2018-08-12 05:49] LABS: WHITE BLOOD COUNT 5.3 10^3/ul (4.8-10.8)
[2018-08-12 05:49] LABS: HEMATOCRIT 34.1 % (42.0-52.0); HEMOGLOBIN 11.5 g/dl (14.0-18.0); LYMPHOCYTES # 0.8 10^3/ul (0.8-2.9); LYMPHOCYTES % 14.8 % (15.0-51.0); MEAN CORPUSCULAR HEMOGLOBIN 28.1 pg (29.0-33.0); MEAN CORPUSCULAR HGB CONC 33.7 g/dl (32.0-37.0); MEAN CORPUSCULAR VOLUME 83.4 fl (82.0-101.0); MEAN PLATELET VOLUME 11.1 fl (7.4-10.4); MONOCYTE # 0.1 10^3/ul (0.3-0.9); MONOCYTES % 1.7 % (0.0-11.0); NEUTROPHIL # 4.4 10^3/ul (1.6-7.5); NEUTROPHILS % 83.3 % (39.0-77.0); PLATELET COUNT 191 10^3/UL (140-415); RED BLOOD COUNT 4.09 10^6/ul (4.70-6.10); RED CELL DISTRIBUTION WIDTH 16.7 % (11.5-14.5)
[2018-08-12 06:04] LABS: ANION GAP 16 (5-13); BLOOD UREA NITROGEN 29 mg/dl (7-20); CALCIUM 8.7 mg/dl (8.4-10.2); CARBON DIOXIDE 22 mmol/L (21-31); CHLORIDE 103 mmol/L (97-110); CREATININE 1.11 mg/dl (0.61-1.24); GLUCOSE 168 mg/dl (70-220); MAGNESIUM 1.4 mg/dl (1.7-2.5); PHOSPHORUS 3.4 mg/dl (2.5-4.9); POTASSIUM 4.9 mmol/L (3.5-5.1); SODIUM 141 mmol/L (135-144)
[2018-08-12] MEDS: ONDANSETRON 4 MG INJ IV ×2 (06:12→23:41)
[2018-08-12 06:13] LABS: LACTIC ACID 2.5 mmol/L (0.5-2.0)
[2018-08-12 06:17] LABS: HEMOGLOBIN A1C 5.5 % (0-5.9)
[2018-08-12] MEDS: PREGABALIN 75 MG CAP PO ×2 (08:37→21:03)
[2018-08-12] MEDS: METOPROLOL (XL) 25 MG TAB PO (08:37)
[2018-08-12] MEDS: QUETIAPINE 25 MG TAB PO ×2 (08:38→21:02)
[2018-08-12] MEDS: THIAMINE 100 MG TAB PO (08:38)
[2018-08-12] MEDS: ENOXAPARIN 40 MG/0.4 ML SYG SC (08:42)
[2018-08-12] MEDS: ASPIRIN (EC) 81 MG TAB PO (09:20)
[2018-08-12] MEDS: MAGNESIUM SULFATE 4 GM/100 ML 100 ML IVPB (10:53)
[2018-08-12] MEDS: ATORVASTATIN 40 MG TAB PO (21:02)
[2018-08-12] MEDS: ZOLPIDEM 5 MG TAB PO (21:03)
[2018-08-12] MEDS: METOPROLOL 25 MG TAB PO (21:03)
[2018-08-12] MEDS: ACETAMINOPHEN 325 MG TAB PO (23:41)
[2018-08-13] MEDS: morphine LIQ (10 MG/5 ML) CUP PO ×5 (01:57→22:29)
[2018-08-13] MEDS: CALCIUM CARBONATE 500 MG CHEW TAB PO (03:18)
[2018-08-13] MEDS: FUROSEMIDE 40 MG INJ IV ×2 (05:40→22:00)
[2018-08-13] MEDS: ASPIRIN (EC) 81 MG TAB PO (08:13)
[2018-08-13] MEDS: THIAMINE 100 MG TAB PO (08:13)
[2018-08-13] MEDS: PREGABALIN 75 MG CAP PO ×2 (08:14→22:26)
[2018-08-13] MEDS: METOPROLOL 25 MG TAB PO ×2 (08:17→22:28)
[2018-08-13] MEDS: QUETIAPINE 25 MG TAB PO ×2 (08:17→22:28)
[2018-08-13] MEDS: ENOXAPARIN 40 MG/0.4 ML SYG SC (08:38)
[2018-08-13 12:17] LABS: ANION GAP 12 (5-13); BLOOD UREA NITROGEN 47 mg/dl (7-20); CALCIUM 8.2 mg/dl (8.4-10.2); CARBON DIOXIDE 25 mmol/L (21-31); CHLORIDE 101 mmol/L (97-110); CREATININE 1.62 mg/dl (0.61-1.24); GLUCOSE 116 mg/dl (70-220); MAGNESIUM 2.1 mg/dl (1.7-2.5); POTASSIUM 4.9 mmol/L (3.5-5.1); SODIUM 138 mmol/L (135-144)
[2018-08-13] MEDS: ATORVASTATIN 40 MG TAB PO (22:28)
[2018-08-13] MEDS: ZOLPIDEM 5 MG TAB PO (22:28)
[2018-08-14] MEDS: FUROSEMIDE 40 MG INJ IV (05:32)
[2018-08-14] MEDS: INFLUENZA VIRUS VACCINE 0.5 ML (DISPENSING) IM* (05:34)
[2018-08-14 06:46] LABS: ANION GAP 15 (5-13); BLOOD UREA NITROGEN 58 mg/dl (7-20); CALCIUM 7.5 mg/dl (8.4-10.2); CARBON DIOXIDE 19 mmol/L (21-31); CHLORIDE 103 mmol/L (97-110); CREATININE 2.16 mg/dl (0.61-1.24); GLUCOSE 90 mg/dl (70-220); MAGNESIUM 2.1 mg/dl (1.7-2.5); SODIUM 137 mmol/L (135-144)
[2018-08-14] MEDS: PREGABALIN 75 MG CAP PO ×2 (09:00→20:21)
[2018-08-14] MEDS: THIAMINE 100 MG TAB PO (09:07)
[2018-08-14] MEDS: ASPIRIN (EC) 81 MG TAB PO (09:07)
[2018-08-14] MEDS: QUETIAPINE 25 MG TAB PO ×2 (09:07→20:20)
[2018-08-14] MEDS: METOPROLOL 25 MG TAB PO ×2 (09:07→20:21)
[2018-08-14] MEDS: ENOXAPARIN 40 MG/0.4 ML SYG SC (09:18)
[2018-08-14] MEDS: ONDANSETRON 4 MG INJ IV (15:05)
[2018-08-14] MEDS: FUROSEMIDE 40 MG TAB PO (17:53)
[2018-08-14] MEDS: morphine LIQ (10 MG/5 ML) CUP PO (17:57)
[2018-08-14 18:14] LABS: ADD UMIC YES; UR ASCORBIC ACID NEGATIVE (NEGATIVE); UR BACTERIA FEW /HPF (NONE SEEN); UR BILIRUBIN (Dip) NEGATIVE (NEGATIVE); UR BLOOD (Dip) NEGATIVE (NEGATIVE); UR CLARITY SLIGHTLY CLOUDY (CLEAR); UR COLOR AMBER (YELLOW); UR GLUCOSE (Dip) NEGATIVE (NEGATIVE); UR HYALINE CAST MODERATE /HPF (NONE SEEN); UR KETONES (Dip) NEGATIVE (NEGATIVE); UR LEUKOCYTE ESTERASE (Dip) NEGATIVE Leu/ul (NEGATIVE); UR MUCUS FEW /HPF (NONE SEEN); UR NITRITE (Dip) NEGATIVE (NEGATIVE); UR RBC 0 /HPF (0-5); UR SPECIFIC GRAVITY (Dip) 1.018 (1.003-1.030); UR TOTAL PROTEIN (Dip) 1+ mg/dl (NEGATIVE); UR UROBILINOGEN (Dip) 2+ mg/dL (NEGATIVE); UR WBC 1 /HPF (0-5)
[2018-08-14 18:36] LABS: CREATININE,URINE RANDOM 195.93 mg/dl (20-370)
[2018-08-14 18:53] LABS: SODIUM,URINE RANDOM 45 mmol/L (30-90)
[2018-08-14] MEDS: ATORVASTATIN 40 MG TAB PO (20:21)
[2018-08-15] MEDS: ONDANSETRON 4 MG INJ IV ×2 (00:39→08:26)
[2018-08-15] MEDS: ZOLPIDEM 5 MG TAB PO ×2 (01:18→21:21)
[2018-08-15] MEDS: FUROSEMIDE 40 MG TAB PO ×2 (05:51→17:25)
[2018-08-15] MEDS: PREGABALIN 75 MG CAP PO ×2 (08:30→21:21)
[2018-08-15] MEDS: ASPIRIN (EC) 81 MG TAB PO (08:30)
[2018-08-15] MEDS: QUETIAPINE 25 MG TAB PO ×2 (08:30→21:22)
[2018-08-15] MEDS: THIAMINE 100 MG TAB PO (08:30)
[2018-08-15] MEDS: METOPROLOL 25 MG TAB PO ×2 (08:31→21:21)
[2018-08-15] MEDS: ENOXAPARIN 30 MG/0.3 ML SYG SC (08:33)
[2018-08-15 11:24] LABS: ABNORMAL IP MESSAGE 1; HEMATOCRIT 33.8 % (42.0-52.0); HEMOGLOBIN 11.5 g/dl (14.0-18.0); MEAN CORPUSCULAR HEMOGLOBIN 28.8 pg (29.0-33.0); MEAN CORPUSCULAR VOLUME 84.7 fl (82.0-101.0); MEAN PLATELET VOLUME 12.2 fl (7.4-10.4); NUCLEATED RED BLOOD CELLS% 0.2 /100WBC (0.0-0.0); POSITIVE DIFF @See below; RED BLOOD COUNT 3.99 10^6/ul (4.70-6.10); RED CELL DISTRIBUTION WIDTH 17.2 % (11.5-14.5)
[2018-08-15 11:24] LABS: WHITE BLOOD COUNT 8.9 10^3/ul (4.8-10.8)
[2018-08-15 11:28] LABS: PLATELET COUNT 116 10^3/UL (140-415)
[2018-08-15 11:29] LABS: ADD MAN DIFF? YES
[2018-08-15 11:45] LABS: ANISOCYTOSIS 1+ (0-0); BURR CELLS 1+ (0-0); EOSINOPHILS % (M) 1 % (0-7); LYMPHOCYTES #M 2.3 10^3/ul (0.8-2.9); LYMPHOCYTES % (M) 26 % (15-51); MONOCYTE #M 1.2 10^3/ul (0.3-0.9); MONOCYTES % (M) 14 % (0-11); PLATELET ESTIMATE DECREASED; POIKILOCYTOSIS 1+ (0-0); POLYCHROMASIA 3+ (0-0); SEGMENTED NEUTROPHILS (M) % 59 % (39-77); SMUDGE%M 30 % (0-0)
[2018-08-15 15:13] LABS: PHOSPHORUS 2.9 mg/dl (2.5-4.9)
[2018-08-15 15:14] LABS: ANION GAP 13 (5-13); BLOOD UREA NITROGEN 65 mg/dl (7-20); CALCIUM 7.5 mg/dl (8.4-10.2); CARBON DIOXIDE 26 mmol/L (21-31); CHLORIDE 98 mmol/L (97-110); CREATININE 1.66 mg/dl (0.61-1.24); GLUCOSE 130 mg/dl (70-220); POTASSIUM 4.1 mmol/L (3.5-5.1); SODIUM 137 mmol/L (135-144)
[2018-08-15] MEDS: HYDROCODONE/APAP (5/325) TAB PO (18:31)
[2018-08-15] MEDS: ATORVASTATIN 40 MG TAB PO (21:21)
[2018-08-16] MEDS: HYDROCODONE/APAP (5/325) TAB PO ×2 (04:09→20:13)
[2018-08-16] MEDS: FUROSEMIDE 40 MG TAB PO ×2 (06:00→17:01)
[2018-08-16 06:17] LABS: ADD MAN DIFF? NO
[2018-08-16 06:18] LABS: BASOPHILS % 0.1 % (0.0-2.0); EOSINOPHILS # 0.1 10^3/ul (0.0-0.5); HEMOGLOBIN 10.9 g/dl (14.0-18.0); LYMPHOCYTES # 1.2 10^3/ul (0.8-2.9); LYMPHOCYTES % 17.2 % (15.0-51.0); MEAN CORPUSCULAR HEMOGLOBIN 28.8 pg (29.0-33.0); MEAN CORPUSCULAR VOLUME 87.3 fl (82.0-101.0); MEAN PLATELET VOLUME 11.4 fl (7.4-10.4); MONOCYTE # 1.1 10^3/ul (0.3-0.9); MONOCYTES % 14.7 % (0.0-11.0); NEUTROPHIL # 4.7 10^3/ul (1.6-7.5); NEUTROPHILS % 65.7 % (39.0-77.0); PLATELET COUNT 114 10^3/UL (140-415); POSITIVE DIFF @See below; RED BLOOD COUNT 3.78 10^6/ul (4.70-6.10); RED CELL DISTRIBUTION WIDTH 17.7 % (11.5-14.5)
[2018-08-16 06:18] LABS: WHITE BLOOD COUNT 7.2 10^3/ul (4.8-10.8)
[2018-08-16 06:46] LABS: ANION GAP 12 (5-13); BLOOD UREA NITROGEN 48 mg/dl (7-20); CALCIUM 7.7 mg/dl (8.4-10.2); CARBON DIOXIDE 28 mmol/L (21-31); CHLORIDE 100 mmol/L (97-110); CREATININE 1.31 mg/dl (0.61-1.24); GLUCOSE 100 mg/dl (70-220); MAGNESIUM 1.8 mg/dl (1.7-2.5); PHOSPHORUS 2.5 mg/dl (2.5-4.9); POTASSIUM 3.8 mmol/L (3.5-5.1); SODIUM 140 mmol/L (135-144)
[2018-08-16] MEDS: ASPIRIN (EC) 81 MG TAB PO (08:45)
[2018-08-16] MEDS: QUETIAPINE 25 MG TAB PO ×2 (08:45→20:13)
[2018-08-16] MEDS: THIAMINE 100 MG TAB PO (08:46)
[2018-08-16] MEDS: ENOXAPARIN 30 MG/0.3 ML SYG SC (08:46)
[2018-08-16] MEDS: METOPROLOL 25 MG TAB PO ×2 (08:47→20:14)
[2018-08-16] MEDS: PREGABALIN 75 MG CAP PO ×2 (08:49→20:13)
[2018-08-16] MEDS: CALCIUM CARBONATE 500 MG CHEW TAB PO (15:50)
[2018-08-16] MEDS: ATORVASTATIN 40 MG TAB PO (20:13)
[2018-08-16] MEDS: ZOLPIDEM 5 MG TAB PO (22:59)
[2018-08-17] MEDS: FUROSEMIDE 40 MG TAB PO (06:00)
[2018-08-17 06:44] LABS: ANION GAP 8 (5-13); BLOOD UREA NITROGEN 29 mg/dl (7-20); CALCIUM 7.8 mg/dl (8.4-10.2); CARBON DIOXIDE 29 mmol/L (21-31); CHLORIDE 103 mmol/L (97-110); CREATININE 1.09 mg/dl (0.61-1.24); GLUCOSE 106 mg/dl (70-220); MAGNESIUM 1.9 mg/dl (1.7-2.5); PHOSPHORUS 2.4 mg/dl (2.5-4.9); POTASSIUM 3.9 mmol/L (3.5-5.1); SODIUM 140 mmol/L (135-144)
[2018-08-17] MEDS: METOPROLOL 25 MG TAB PO (08:13)
[2018-08-17] MEDS: PREGABALIN 75 MG CAP PO (08:13)
[2018-08-17] MEDS: THIAMINE 100 MG TAB PO (08:13)
[2018-08-17] MEDS: ASPIRIN (EC) 81 MG TAB PO (08:13)
[2018-08-17] MEDS: QUETIAPINE 25 MG TAB PO (08:13)
[2018-08-17] MEDS: ENOXAPARIN 30 MG/0.3 ML SYG SC (08:14)
[2018-08-17] MEDS: HYDROCODONE/APAP (5/325) TAB PO (08:17)
[2018-08-17] MEDS: NEUTRA-PHOS 250 MG PACKET PO (09:13)
[2018-08-17 15:06] LABS: CREATININE, RANDOM URINE 178 mg/dL (20-320); MICROALBUMIN 11.7 mg/dL; MICROALBUMIN/CREATININE RATIO 66 (<30)
== END 2018-08-17 15:17 | disposition home or self-care (01) | DRG 291 ==
LOC: E/R 12:30 → 6WM 14:42
PROC: 4A033R1 Measurement of Arterial Saturation, Peripheral, Percutaneous Approach (ICD-10-PCS; principal; 2018-08-11)
DX: I13.0 Hypertensive heart and chronic kidney disease with heart failure and stage 1 through stage 4 chronic kidney disease, or unspecified chronic kidney disease (principal); I50.23 Acute on chronic systolic (congestive) heart failure; J96.01 Acute respiratory failure with hypoxia; G92 Toxic encephalopathy; N17.9 Acute kidney failure, unspecified; N18.9 Chronic kidney disease, unspecified; E78.5 Hyperlipidemia, unspecified; J44.9 Chronic obstructive pulmonary disease, unspecified; D64.9 Anemia, unspecified; I42.9 Cardiomyopathy, unspecified; F10.10 Alcohol abuse, uncomplicated; I48.91 Unspecified atrial fibrillation; E83.42 Hypomagnesemia; G31.2 Degeneration of nervous system due to alcohol; Z79.82 Long term (current) use of aspirin; Z95.810 Presence of automatic (implantable) cardiac defibrillator; Z87.891 Personal history of nicotine dependence
CPT/HCPCS: 36415; 36600; 71045; 80048; 81001; 81003; 82043; 82803; 83036; 83605; 83735; 84100; 84155; 84300; 84484; 85025; 85610; 85730; 87040; 90686; 93005; 94644; 96374; 96375; 97161; 99291-25

== ENCOUNTER 2018-09-18 17:31 | Emergency (ER) | payer MEDICARE, OTHER ==
[2018-09-18 18:39] LABS: ADD MAN DIFF? NO
[2018-09-18 18:40] LABS: BASOPHILS % 0.2 % (0.0-2.0); EOSINOPHILS # 0.1 10^3/ul (0.0-0.5); EOSINOPHILS % 1.4 % (0.0-7.0); HEMATOCRIT 40.2 % (42.0-52.0); HEMOGLOBIN 12.9 g/dl (14.0-18.0); LYMPHOCYTES # 1.1 10^3/ul (0.8-2.9); LYMPHOCYTES % 17.1 % (15.0-51.0); MEAN CORPUSCULAR HEMOGLOBIN 29.6 pg (29.0-33.0); MEAN CORPUSCULAR HGB CONC 32.1 g/dl (32.0-37.0); MEAN CORPUSCULAR VOLUME 92.2 fl (82.0-101.0); MEAN PLATELET VOLUME 10.4 fl (7.4-10.4); MONOCYTE # 0.7 10^3/ul (0.3-0.9); MONOCYTES % 10.1 % (0.0-11.0); NEUTROPHIL # 4.7 10^3/ul (1.6-7.5); NEUTROPHILS % 70.9 % (39.0-77.0); PLATELET COUNT 229 10^3/UL (140-415); RED BLOOD COUNT 4.36 10^6/ul (4.70-6.10); RED CELL DISTRIBUTION WIDTH 20.4 % (11.5-14.5)
[2018-09-18 18:40] LABS: WHITE BLOOD COUNT 6.7 10^3/ul (4.8-10.8)
[2018-09-18 18:55] LABS: INR 0.99; PROTIME 13.2 Sec (11.9-14.9)
[2018-09-18 18:58] LABS: ANION GAP 14 (5-13); BLOOD UREA NITROGEN 20 mg/dl (7-20); CALCIUM 8.1 mg/dl (8.4-10.2); CARBON DIOXIDE 26 mmol/L (21-31); CHLORIDE 102 mmol/L (97-110); CREATININE 0.96 mg/dl (0.61-1.24); GLUCOSE 114 mg/dl (70-220); POTASSIUM 3.2 mmol/L (3.5-5.1); SODIUM 142 mmol/L (135-144)
[2018-09-18 19:10] LABS: B-TYPE NATRIURETIC PEPTIDE 6970 PG/ML (0-125); TROPONIN-I 0.053 ng/ml (0.000-0.120)
[2018-09-18] MEDS: KETOROLAC 15 MG INJ IM (19:29)
== END 2018-09-18 23:16 | disposition home or self-care (01) ==
LOC: E/R 17:31
DX: R07.9 Chest pain, unspecified (principal); D64.9 Anemia, unspecified; E87.6 Hypokalemia; I51.7 Cardiomegaly; I11.0 Hypertensive heart disease with heart failure; I50.9 Heart failure, unspecified; J44.9 Chronic obstructive pulmonary disease, unspecified; F17.210 Nicotine dependence, cigarettes, uncomplicated; Z95.0 Presence of cardiac pacemaker; Z79.82 Long term (current) use of aspirin
CPT/HCPCS: 36415; 71045; 80048; 83880; 84484; 85025; 85610; 93005; 96372; 99285-25

== ENCOUNTER 2018-09-18 23:27 | Observation (INO) | payer MEDICARE, OTHER ==
[2018-09-19 01:14] LABS: ADD MAN DIFF? NO
[2018-09-19 01:15] LABS: WHITE BLOOD COUNT 5.4 10^3/ul (4.8-10.8)
[2018-09-19 01:15] LABS: EOSINOPHILS # 0.3 10^3/ul (0.0-0.5); EOSINOPHILS % 4.6 % (0.0-7.0); HEMOGLOBIN 12.3 g/dl (14.0-18.0); LYMPHOCYTES # 1.2 10^3/ul (0.8-2.9); LYMPHOCYTES % 22.7 % (15.0-51.0); MEAN CORPUSCULAR HEMOGLOBIN 29.6 pg (29.0-33.0); MEAN CORPUSCULAR HGB CONC 32.4 g/dl (32.0-37.0); MEAN CORPUSCULAR VOLUME 91.3 fl (82.0-101.0); MEAN PLATELET VOLUME 10.7 fl (7.4-10.4); MONOCYTE # 0.6 10^3/ul (0.3-0.9); MONOCYTES % 10.1 % (0.0-11.0); NEUTROPHIL # 3.4 10^3/ul (1.6-7.5); NEUTROPHILS % 62.2 % (39.0-77.0); PLATELET COUNT 215 10^3/UL (140-415); RED BLOOD COUNT 4.16 10^6/ul (4.70-6.10); RED CELL DISTRIBUTION WIDTH 20.4 % (11.5-14.5)
[2018-09-19 01:34] LABS: ANION GAP 14 (5-13); BLOOD UREA NITROGEN 21 mg/dl (7-20); CALCIUM 8.1 mg/dl (8.4-10.2); CARBON DIOXIDE 28 mmol/L (21-31); CHLORIDE 103 mmol/L (97-110); CREATININE 0.89 mg/dl (0.61-1.24); GLUCOSE 95 mg/dl (70-220); POTASSIUM 3.2 mmol/L (3.5-5.1); SODIUM 145 mmol/L (135-144)
[2018-09-19] MEDS: ASPIRIN 81 MG TAB PO ×2 (01:41→09:34)
[2018-09-19 01:46] LABS: B-TYPE NATRIURETIC PEPTIDE 6290 PG/ML (0-125); TROPONIN-I 0.067 ng/ml (0.000-0.120)
[2018-09-19] MEDS ORDERED: ACETAMINOPHEN 325 MG TAB PO ×2 (02:00→04:00)
[2018-09-19] MEDS ORDERED: ONDANSETRON 4 MG INJ IV ×2 (02:00→04:00)
[2018-09-19] MEDS ORDERED: NACL 0.9% 3 ML SYG IV (04:00)
[2018-09-19] MEDS ORDERED: DOCUSATE SODIUM 100 MG CAP PO (04:00)
[2018-09-19] MEDS ORDERED: NITROGLYCERIN (SL) 0.4 MG TAB SL (04:00)
[2018-09-19] MEDS ORDERED: BISACODYL (EC) 5 MG TAB PO (04:00)
[2018-09-19] MEDS: POTASSIUM CHLORIDE (SR) 20 MEQ TAB PO (04:02)
[2018-09-19] MEDS: morphine 4 MG/ML VIAL IV ×3 (04:03→21:38)
[2018-09-19] MEDS: traZODone 50 MG TAB PO (04:53)
[2018-09-19 06:06] LABS: ADD MAN DIFF? NO
[2018-09-19 06:09] LABS: WHITE BLOOD COUNT 5.6 10^3/ul (4.8-10.8)
[2018-09-19 06:09] LABS: EOSINOPHILS # 0.3 10^3/ul (0.0-0.5); EOSINOPHILS % 5.5 % (0.0-7.0); HEMATOCRIT 35.6 % (42.0-52.0); HEMOGLOBIN 11.6 g/dl (14.0-18.0); LYMPHOCYTES # 1.2 10^3/ul (0.8-2.9); LYMPHOCYTES % 20.9 % (15.0-51.0); MEAN CORPUSCULAR HEMOGLOBIN 29.8 pg (29.0-33.0); MEAN CORPUSCULAR HGB CONC 32.6 g/dl (32.0-37.0); MEAN CORPUSCULAR VOLUME 91.5 fl (82.0-101.0); MEAN PLATELET VOLUME 11.1 fl (7.4-10.4); MONOCYTE # 0.6 10^3/ul (0.3-0.9); MONOCYTES % 10.9 % (0.0-11.0); NEUTROPHIL # 3.5 10^3/ul (1.6-7.5); PLATELET COUNT 226 10^3/UL (140-415); RED BLOOD COUNT 3.89 10^6/ul (4.70-6.10); RED CELL DISTRIBUTION WIDTH 20.3 % (11.5-14.5)
[2018-09-19 06:50] LABS: HEMOGLOBIN A1C 5.6 % (0-5.9)
[2018-09-19 06:55] LABS: CREATINE KINASE 362 IU/L (23-200)
[2018-09-19 06:59] LABS: CK-MB 3.45 ng/ml (0.0-2.4); TROPONIN-I 0.061 ng/ml (0.000-0.120)
[2018-09-19 07:01] LABS: ALANINE AMINOTRANSFERASE 34 IU/L (13-69); ALBUMIN 3.6 g/dl (3.3-4.9); ALBUMIN/GLOBULIN RATIO 1.12; ALKALINE PHOSPHATASE 97 IU/L (42-121); ANION GAP 16 (5-13); ASPARTATE AMINO TRANSFERASE 62 IU/L (15-46); BILIRUBIN,INDIRECT 0.4 mg/dl (0-1.1); BILIRUBIN,TOTAL 0.4 mg/dl (0.2-1.3); BLOOD UREA NITROGEN 20 mg/dl (7-20); CARBON DIOXIDE 24 mmol/L (21-31); CHLORIDE 103 mmol/L (97-110); CHOL/HDL RATIO 3.7 RATIO; CHOLESTEROL 135 mg/dl (100-200); CREATININE 0.85 mg/dl (0.61-1.24); GLUCOSE 118 mg/dl (70-220); HDL CHOLESTEROL 36 mg/dl (31-75); LDL CHOLESTEROL,CALCULATED 77 mg/dl; POTASSIUM 3.9 mmol/L (3.5-5.1); SODIUM 143 mmol/L (135-144); TOTAL PROTEIN 6.8 g/dl (6.1-8.1); TRIGLYCERIDES 112 mg/dl (0-149)
[2018-09-19] MEDS ORDERED: ASPIRIN (EC) 81 MG TAB PO (09:00)
[2018-09-19] MEDS: METOPROLOL (XL) 25 MG TAB PO (09:34)
[2018-09-19 12:37] LABS: CREATINE KINASE 282 IU/L (23-200)
[2018-09-19 12:49] LABS: CK INDEX 1.1; TROPONIN-I 0.054 ng/ml (0.000-0.120)
[2018-09-19 12:53] LABS: CK-MB 2.98 ng/ml (0.0-2.4)
[2018-09-19] MEDS: HYDROCODONE/APAP (5/325) TAB PO (16:00)
[2018-09-19] MEDS: ATORVASTATIN 40 MG TAB PO (20:16)
[2018-09-20] MEDS: HYDROCODONE/APAP (5/325) TAB PO ×2 (02:39→12:39)
[2018-09-20] MEDS: POTASSIUM CHLORIDE (SR) 20 MEQ TAB PO (03:32)
[2018-09-20] MEDS: INFLUENZA VIRUS VACCINE 0.5 ML (DISPENSING) IM* (08:59)
[2018-09-20] MEDS: LISINOPRIL 5 MG TAB PO (09:11)
[2018-09-20] MEDS: ASPIRIN 81 MG TAB PO (09:11)
[2018-09-20] MEDS: METOPROLOL (XL) 25 MG TAB PO (09:11)
== END 2018-09-20 14:23 | disposition home or self-care (01) ==
LOC: E/R 23:27 → 6WM 09-19 01:48
DX: R07.9 Chest pain, unspecified (principal); I42.9 Cardiomyopathy, unspecified; I10 Essential (primary) hypertension; R94.31 Abnormal electrocardiogram [ECG] [EKG]; F17.200 Nicotine dependence, unspecified, uncomplicated; Z59.0 Homelessness
CPT/HCPCS: 36415; 80048; 80053; 80061; 80307; 82550; 82553; 83036; 83735; 83880; 84443; 84484; 85025; 90686; 93005; 93306; 96374; 99285-25; G0378

== ENCOUNTER 2019-02-09 04:31 | Emergency (ER) | payer MEDICARE, OTHER ==
[2019-02-09] MEDS: OXYCODONE/ACETAMINOPHEN (5/325) TAB PO (07:23)
[2019-02-09] MEDS: IBUPROFEN 600 MG TAB PO (10:18)
== END 2019-02-09 16:21 | disposition home or self-care (01) ==
LOC: E/R 04:31
DX: M62.838 Other muscle spasm (principal); I11.0 Hypertensive heart disease with heart failure; I50.9 Heart failure, unspecified; J44.9 Chronic obstructive pulmonary disease, unspecified; Z79.82 Long term (current) use of aspirin; Z87.891 Personal history of nicotine dependence
CPT/HCPCS: 99283